=== PATIENT | male | born 1955 | race Caucasian/White ===

== ENCOUNTER 2018-07-18 04:48 | Emergency (ER) | payer MEDICAID ==
[2018-07-18 04:48] VITALS: BMI 28.3
[2018-07-18 05:06] VITALS: TEMP 98.5
--- NOTE | 2018-07-18 05:29 | ED PDOC ---
Arrival/HPI - General Chief Complaint: Abdominal Pain Time Seen by Provider: 07/18/18 05:19 Historian: Patient - History of Present Illness Narrative History of Present Illness (Text): 07/18/18 05:28 Jennifer Hammonds is a 62 year old male, whose past medical history includes BPH , hypertension, and hypothyroidism, who presents to the Emergency department complaining of abdominal pain. Patient states he has been experiencing diffuse recurrent vague abdominal cramps for the past 2 days with associated nausea. Patient was seen in the Emergency department yesterday for similar complaints. EKG, Chest X-ray, Labs, and CT Abdomen and Pelvis were performed and were within normal limits. Patient was discharged after symptom improved. Patient states pain return today and is feeling anxious due to his symptoms. Patient denies any fever, chills, chest pain, shortness of breath, vomiting, diarrhea, urinary symptoms, back pain, dizziness, or any other complaints. Symptom Onset: Gradual Symptom Course: Unchanged Activities at Onset: Light Context: Home Past Medical History - Provider Review Nursing Documentation Reviewed: Yes - Tetanus Immunization Tetanus Immunization: Unknown - Cardiac Hx Hypertension: Yes - Pulmonary Hx Respiratory Disorders: No - Gastrointestinal Hx Gastrointestinal Disorders: Yes Hx Gastritis: Yes Hx Gastroesophageal Reflux: Yes - Genitourinary/Gynecological Hx Prostate Problems: Yes - Psychiatric Hx Psychophysiologic Disorder: Yes Hx Anxiety: Yes Hx Substance Use: No - Surgical History Hx Cardiac Catheterization: Yes (about 5 yrs ago) - Anesthesia Hx Anesthesia: Yes Hx Anesthesia Reactions: No - Suicidal Assessment Feels Threatened In Home Enviroment: No Family/Social History - Physician Review Nursing Documentation Reviewed: Yes Family/Social History: Unknown Family HX Smoking Status: Former Smoker Hx Alcohol Use: No Hx Substance Use: No Hx Substance Use Treatment: No Allergies/Home Meds Allergies/Adverse Reactions: Allergies Penicillins Allergy (Verified 07/17/18 10:28) SWELLING Home Medications: Home Meds Medication Instructions Recorded Confirmed Tamsulosin [Flomax] 0.4 mg PO DAILY 09/25/14 07/18/18 Levothyroxine Sodium 75 mcg PO DAILY 06/08/17 07/18/18 amLODIPine [Norvasc] 10 mg PO DAILY 06/08/17 07/18/18 Review of Systems - Physician Review All systems were reviewed & negative as marked: Yes - Review of Systems Constitutional: Normal. absent: Fevers Eyes: Normal ENT: Normal Respiratory: Normal. absent: SOB, Cough Cardiovascular: Normal. absent: Chest Pain Gastrointestinal: Abdominal Pain Genitourinary Male: Normal. absent: Dysuria, Frequency, Hematuria, Urinary Output Changes Musculoskeletal: Normal. absent: Back Pain, Neck Pain Skin: Normal. absent: Rash Neurological: Normal. absent: Headache, Dizziness Endocrine: Normal Hemo/Lymphatic: Normal Psychiatric: Normal Physical Exam Vital Signs Reviewed: Yes Vital Signs Temp Pulse Resp BP Pulse Ox 07/18/18 05:01 98.5 F 97 H 19 172/110 H 97 Temperature: Afebrile Blood Pressure: Normal Pulse: Regular Respiratory Rate: Normal Appearance: Positive for: Well-Appearing, Non-Toxic, Comfortable Pain Distress: None Mental Status: Positive for: Alert and Oriented X 3 - Systems Exam Head: Present: Atraumatic, Normocephalic Pupils: Present: PERRL Extroacular Muscles: Present: EOMI Conjunctiva: Present: Normal Mouth: Present: Moist Mucous Membranes Neck: Present: Normal Range of Motion Respiratory/Chest: Present: Clear to Auscultation, Good Air Exchange. No: Respiratory Distress, Accessory Muscle Use Cardiovascular: Present: Regular Rate and Rhythm, Normal S1, S2. No: Murmurs Abdomen: No: Tenderness, Distention, Peritoneal Signs Back: Present: Normal Inspection. No: CVA Tenderness, Midline Tenderness, Paraspinal Tenderness Upper Extremity: Present: Normal Inspection. No: Cyanosis, Edema Lower Extremity: Present: Normal Inspection. No: Edema Neurological: Present: GCS=15, CN II-XII Intact, Speech Normal, Motor Func Grossly Intact, Normal Sensory Function, Normal Cerebellar Funct Skin: Present: Warm, Dry, Normal Color. No: Rashes Psychiatric: Present: Alert, Oriented x 3, Normal Insight, Normal Concentration Medical Decision Making ED Course and Treatment: 07/18/18 05:28 Impression: 62 year old male complaining of diffuse, recurrent abdominal pain for 2 days. Plan: -- Labs, lipase -- Urinalysis -- IV fluids -- Zofran -- Toradol -- Reassess and disposition Prior Visits: Notes and results from previous visits were reviewed. On 07/17/2018, pt was seen in the Emergency department for epigastric abdominal pain. EKG, Chest X-ray, Labs, and CT Abdomen and Pelvis performed. Labs were unremarkable. CT Abdomen and Pelvis showed: No evidence of cholecystitis pancreatitis or appendicitis, mildly enlarged nando hepatis and peripancreatic lymph nodes noted. Patient was discharged home. Progress Notes: - Lab Interpretations Lab Results: 07/18/18 05:45 07/18/18 05:45 Lab Results 07/18/18 05:45: WBC 5.8 D, RBC 5.78, Hgb 15.5, Hct 46.8, MCV 81.0, MCH 26.8, MCHC 33.1, RDW 13.9, Plt Count 352, MPV 9.4 07/18/18 05:45: Sodium 142, Potassium 3.9, Chloride 102, Carbon Dioxide 28, Anion Gap 16, BUN 10, Creatinine 1.0, Est GFR ( Amer) > 60, Est GFR (Non- Af Amer) > 60, Random Glucose 123 H, Calcium 10.0, Total Bilirubin 0.8, AST 28, ALT 14, Alkaline Phosphatase 95, Total Protein 8.5 H, Albumin 4.9 H, Globulin 3.6, Albumin/Globulin Ratio 1.4, Lipase 46 07/18/18 05:45: Urine Color Yellow, Urine Appearance Clear, Urine pH 6.0, Ur Specific [place] 1.010, Urine Protein Negative, Urine Glucose (UA) Negative, Urine Ketones Negative, Urine Blood Negative, Urine Nitrate Negative, Urine Bilirubin Negative, Urine Urobilinogen 0.2, Ur Leukocyte Esterase Negative - Medication Orders Current Medication Orders: Discontinued Medications Sodium Chloride (Sodium Chloride 0.9%) 1,000 mls @ 999 mls/hr IV .Q1H1M STA Stop: 07/18/18 06:30 Last Admin: 07/18/18 05:46 Dose: 999 mls/hr eMAR Start Stop Document 07/18/18 05:46 CNR (Rec: 07/18/18 05:46 CNR [id number]) Intravenous Solution Start Date 07/18/18 Start Time 05:46 End Date 07/18/18 End time 06:46 Total Infusion Time 60 Ketorolac Tromethamine (Toradol) 30 mg IVP ONCE ONE Stop: 07/18/18 05:31 Last Admin: 07/18/18 05:46 Dose: 30 mg MAR Pain Assessment Document 07/18/18 05:46 CNR (Rec: 07/18/18 05:47 CNR [id number]) Pain Reassessment Is this a pain reassessment? No IVP Administration Document 07/18/18 05:46 CNR (Rec: 07/18/18 05:47 CNR [id number]) Charges for Administration # of IVP Administrations 1 Ondansetron HCl (Zofran Inj) 4 mg IVP ONCE ONE Stop: 07/18/18 05:31 Last Admin: 07/18/18 05:46 Dose: 4 mg IVP Administration Document 07/18/18 05:46 CNR (Rec: 07/18/18 05:46 CNR [id number]) Charges for Administration # of IVP Administrations 1 - Scribe Statement The provider has reviewed the documentation as recorded by the Mary Lou Sal Provider Scribe Attestation: All medical record entries made by the Scribe were at my direction and personally dictated by me. I have reviewed the chart and agree that the record accurately reflects my personal performance of the history, physical exam, medical decision making, and the department course for this patient. I have also personally directed, reviewed, and agree with the discharge instructions and disposition. Disposition/Present on Arrival - Present on Arrival Any Indicators Present on Arrival: No History of DVT/PE: No History of Uncontrolled Diabetes: No Urinary Catheter: No History of Decub. Ulcer: No History Surgical Site Infection Following: None - Disposition Have Diagnosis and Disposition been Completed?: Yes Diagnosis: Gastritis, Dyspepsia Disposition: HOME/ ROUTINE Disposition Time: 06:59 Patient Plan: Discharge Condition: GOOD Discharge Instructions (ExitCare): Dyspepsia (DC), Gastritis (DC) Additional Instructions: Take meds as prescribed/maintain bland diet next few days/avoid alcohol or caffeinated beverages/follow up with your doctor this week Prescriptions: Phenobarb/Hyoscy/Atropine/Scop [ Tablet] 16.2 mg PO Q6 PRN #12 tablet PRN Reason: Dyspepsia Forms: [employer] (Mongolian)
[2018-07-18] MEDS ORDERED: Sodium Chloride 0.9% 1,000 ML IV STA (05:30)
[2018-07-18 06:02] LABS: HEMOGLOBIN 15.5 g/dL (14.0-18.0); MEAN CORPUSCULAR HEMOGLOBIN 26.8 pg (25.0-35.0); MEAN CORPUSCULAR HGB CONC 33.1 g/dl (31.0-37.0); MEAN PLATELET VOLUME 9.4 fl (7.0-11.0); RBC 5.78 10^6/uL (3.5-6.1); RED CELL DISTRIBUTION WIDTH 13.9 % (11.5-14.5); WHITE BLOOD COUNT 5.8 10^3/ul (4.5-11.0)
[2018-07-18 06:08] LABS: URINE BILIRUBIN NEGATIVE (NEGATIVE); URINE BLOOD NEGATIVE (NEGATIVE); URINE GLUCOSE (UA) NEGATIVE (NEGATIVE); URINE LEUKOCYTE ESTERASE NEGATIVE Leu/uL (NEGATIVE); URINE PROTEIN NEGATIVE mg/dL (<30 mg/dL); URINE UROBILINOGEN 0.2 E.U./dL (<1 E.U./dL)
[2018-07-18 06:12] LABS: URINE APPEARANCE CLEAR (CLEAR); URINE COLOR YELLOW (YELLOW)
[2018-07-18 06:13] LABS: ALB/GLOB RATIO 1.4 (1.1-1.8); ALBUMIN 4.9 g/dL (3.0-4.8); ALT/SGPT 14 U/L (7-56); AST/SGOT 28 U/L (17-59); BLOOD UREA NITROGEN 10 mg/dL (7-21); GFR NON-AFRICAN AMERICAN > 60; LIPASE 46 U/L (23-300)
[2018-07-18 07:12] VITALS: BP 156/82; PULSE 79; RESP 20; O2SAT 99
== END 2018-07-18 07:11 | disposition home or self-care (01) ==
LOC: ED 04:48
DX: K29.70 Gastritis, unspecified, without bleeding (principal); E03.9 Hypothyroidism, unspecified; I10 Essential (primary) hypertension; N40.0 Benign prostatic hyperplasia without lower urinary tract symptoms; Z87.891 Personal history of nicotine dependence
CPT/HCPCS: 80053; 81003; 83690; 85027; 96361; 96374; 96375; 99283; J1885; J2405; J7030

== ENCOUNTER 2018-08-03 09:58 | Emergency (ER) | payer MEDICAID ==
[2018-08-03 09:58] VITALS: BMI 28.3
--- NOTE | 2018-08-03 10:19 | ED PDOC ---
Arrival/HPI - General Historian: Patient - History of Present Illness Narrative History of Present Illness (Text): 08/03/18 10:12 62yo male with pmhx of BPH, hypertension, hypothyroid and anxiety who present with complaint of nausea and dizziness. States he usually takes his anti hypertensive whenever he feels his BP is high. States he felt it was high today and when he checked it, it was high so he took his BP medication. States minutes after taking it, be became lightheaded while standing with associated nausea. Reports history of this dizziness, but it was worse today. states he was referred to a Neurologist, but because he felt fine after he was seen here on 07/18/18, he have not seen any Doctor. He denies vomiting, headache, visual changes, abdominal pain, fever, chills, chest pain, slurred speech, focal weakness. <Jabier Navarro A - Last Filed: 08/03/18 12:55> <Arnaud Hobson - Last Filed: 08/04/18 07:24> - General Time Seen by Provider: 08/03/18 09:59 Past Medical History - Provider Review Nursing Documentation Reviewed: Yes - Tetanus Immunization Tetanus Immunization: Unknown - Cardiac Hx Hypertension: Yes - Pulmonary Hx Respiratory Disorders: No - Gastrointestinal Hx Gastrointestinal Disorders: Yes Hx Gastritis: Yes Hx Gastroesophageal Reflux: Yes - Genitourinary/Gynecological Hx Prostate Problems: Yes - Psychiatric Hx Psychophysiologic Disorder: Yes Hx Anxiety: Yes Hx Substance Use: No - Surgical History Hx Cardiac Catheterization: Yes (about 5 yrs ago) - Anesthesia Hx Anesthesia: Yes Hx Anesthesia Reactions: No - Suicidal Assessment Feels Threatened In Home Enviroment: No <Jabier Navarro A - Last Filed: 08/03/18 12:55> Family/Social History - Physician Review Nursing Documentation Reviewed: Yes Family/Social History: Unknown Family HX Smoking Status: Former Smoker Hx Alcohol Use: No Hx Substance Use: No Hx Substance Use Treatment: No <Jabier Navarro A - Last Filed: 08/03/18 12:55> Allergies/Home Meds <Jabier Navarro A - Last Filed: 08/03/18 12:55> <Arnaud Hobson - Last Filed: 08/04/18 07:24> Allergies/Adverse Reactions: Allergies Penicillins Allergy (Verified 08/03/18 10:16) SWELLING Home Medications: Home Meds Medication Instructions Recorded Confirmed Tamsulosin [Flomax] 0.4 mg PO DAILY 09/25/14 08/03/18 Levothyroxine Sodium 75 mcg PO DAILY 06/08/17 08/03/18 amLODIPine [Norvasc] 10 mg PO DAILY 06/08/17 08/03/18 Review of Systems - Physician Review All systems were reviewed & negative as marked: Yes - Review of Systems Constitutional: Normal Eyes: Normal ENT: Normal Respiratory: Normal Cardiovascular: Normal Gastrointestinal: Nausea. absent: Abdominal Pain, Constipation, Diarrhea, Vomiting, Hematemesis Genitourinary Male: Normal Musculoskeletal: Normal Skin: Normal Neurological: Dizziness. absent: Headache, Focal Weakness Endocrine: Normal Hemo/Lymphatic: Normal Psychiatric: Normal <Diru,Happiness A - Last Filed: 08/03/18 12:55> Physical Exam Vital Signs Reviewed: Yes Temperature: Afebrile Blood Pressure: Normal Pulse: Regular Respiratory Rate: Normal Appearance: Positive for: Well-Appearing, Non-Toxic, Comfortable Pain Distress: None Mental Status: Positive for: Alert and Oriented X 3 - Systems Exam Head: Present: Atraumatic, Normocephalic Pupils: Present: PERRL Extroacular Muscles: Present: EOMI Conjunctiva: Present: Normal Mouth: Present: Moist Mucous Membranes Neck: Present: Normal Range of Motion Respiratory/Chest: Present: Clear to Auscultation, Good Air Exchange. No: Respiratory Distress, Accessory Muscle Use Cardiovascular: Present: Regular Rate and Rhythm, Normal S1, S2. No: Murmurs Abdomen: No: Tenderness, Distention, Peritoneal Signs, Rebound, Guarding, [place] Tender Back: Present: Normal Inspection Upper Extremity: Present: Normal Inspection. No: Cyanosis, Edema Lower Extremity: Present: Normal Inspection. No: Edema Neurological: Present: GCS=15, CN II-XII Intact, Speech Normal, Motor Func Grossly Intact, Normal Sensory Function, Normal Cerebellar Funct, Norm Deep Tendon Reflexes, Gait Normal, Memory Normal, Normal 2Pt Descrimination, Other (No focal neurological deficit) Skin: Present: Warm, Dry, Normal Color. No: Rashes Psychiatric: Present: Alert, Oriented x 3, Normal Insight, Normal Concentration <Diru,Happiness A - Last Filed: 08/03/18 12:55> Vital Signs Temp Pulse Resp BP Pulse Ox 08/03/18 12:59 76 18 135/75 100 08/03/18 11:46 98.8 F 86 18 125/61 100 08/03/18 10:18 99.2 F 93 H 16 147/92 H 100 <Arnaud Hobson - Last Filed: 08/04/18 07:24> Medical Decision Making ED Course and Treatment: 08/03/18 10:47 62yo male in ED for nausea/dizziness since this morning. PT was neurologically intact in ED. Labs EKG 1L NS CAR Orthostatic htn Will reassess EKG NSR @83bpm. NO ST changes. Normal interval. Normal axis. 08/03/18 12:56 On re evaluation pt notes that his symptoms resolved. complained of mild headache and was treated with Tylenol. All labs was unremarkable He was not orthostatic He was hydrated. Neurologically intact and have steady gait in ED. He was AAO x3. He is stable for discharge all result and plan was DW the pt. He was strongly advised to f/u with a Neurologist/PMD TRT ED for new symptoms <Jabier Navarro A - Last Filed: 08/03/18 12:55> - Lab Interpretations Lab Results: 08/03/18 11:15 08/03/18 11:15 Lab Results 08/03/18 11:15: Sodium 140, Potassium 4.1, Chloride 102, Carbon Dioxide 30, Anion Gap 13, BUN 10, Creatinine 1.1, Est GFR ( Amer) > 60, Est GFR (Non- Af Amer) > 60, Random Glucose 104, Calcium 9.7, Magnesium 2.1, Total Bilirubin 0.5, AST 31, ALT 21, Alkaline Phosphatase 86, Total Protein 8.1, Albumin 4.8, Gl obulin 3.4, Albumin/Globulin Ratio 1.4, Lipase 45 08/03/18 11:15: PT 12.8 H, INR 1.11, APTT 33.7 08/03/18 11:15: WBC 4.4 L D, RBC 5.67, Hgb 14.8, Hct 46.0, MCV 81.1, MCH 26.1, MCHC 32.2, RDW 14.0, Plt Count 344, MPV 9.3, Gran % 66.7, Lymph % (Auto) 24.4, [place] % (Auto) 5.7, Eos % (Auto) 3.0, Baso % (Auto) 0.2, Gran # 2.92, Lymph # (Auto) 1.1 L, [place] # (Auto) 0.3, Eos # (Auto) 0.1, Baso # (Auto) 0.01 - Medication Orders Current Medication Orders: Discontinued Medications Acetaminophen (Tylenol 325mg Tab) 650 mg PO STAT STA Stop: 08/03/18 12:36 Last Admin: 08/03/18 12:47 Dose: 650 mg MAR Pain/Vitals Document 08/03/18 12:47 JUJU (Rec: 08/03/18 12:49 [id number]) Pain Reassessment Is This A Pain ReAssessment? Yes Presence of Pain Presence of Pain Yes Pain Scale Used Protocol: PSCALES Pain Scale Used Numeric Location Pain Location Body Hospice Office Coordinator Intensity 4 Scale Used Numeric Sodium Chloride (Sodium Chloride 0.9%) 1,000 mls @ 250 mls/hr IV .Q4H ONE Stop: 08/03/18 14:45 Last Admin: 08/03/18 11:06 Dose: 250 mls/hr eMAR Start Stop Document 08/03/18 11:06 JUJU (Rec: 08/03/18 11:06 [id number]) Intravenous Solution Start Date 08/03/18 Start Time 11:06 End Date 08/03/18 End time 12:49 Total Infusion Time 103 <Arnaud Hobson - Last Filed: 08/04/18 07:24> - PA / PAPER GRADER / Resident Statement / has reviewed & agrees with the documentation as recorded. <Arnaud Hobson - Last Filed: 08/04/18 07:24> Disposition/Present on Arrival - Present on Arrival Any Indicators Present on Arrival: No History of DVT/PE: No History of Uncontrolled Diabetes: No Urinary Catheter: No History Surgical Site Infection Following: None - Disposition Have Diagnosis and Disposition been Completed?: Yes Disposition Time: 13:05 Patient Plan: Discharge <Jabier Navarro - Last Filed: 08/03/18 12:55> <Arnaud Hobson - Last Filed: 08/04/18 07:24> - Disposition Diagnosis: Dizziness Disposition: HOME/ ROUTINE Condition: STABLE Discharge Instructions (ExitCare): Dizziness, Nonvertigo, (DC) Additional Instructions: Follow up with your Doctor/Neurologist Return to ED for any new or worsening symptoms Referrals: Mandy Glaeson DO [Primary Care Provider] - Follow up with primary King Chavarria MD [Staff Provider] - Follow up with primary Forms: [employer] (Norwegian)
[2018-08-03 10:22] VITALS: O2SAT 100
[2018-08-03] MEDS ORDERED: Sodium Chloride 0.9% 1,000 ML IV ONE (10:46)
[2018-08-03 11:46] VITALS: RESP 18; TEMP 98.8
[2018-08-03 11:59] LABS: BASO # 0.01 K/mm3 (0.0-2.0); BASO % 0.2 % (0.0-3.0); EOS # 0.1 (0.0-0.7); GRAN # 2.92 (1.4-6.5); GRAN % 66.7 % (50.0-68.0); HEMOGLOBIN 14.8 g/dL (14.0-18.0); LYMPH # 1.1 (1.2-3.4); LYMPH % 24.4 % (22.0-35.0); MEAN CELL VOLUME 81.1 fl (80.0-105.0); MEAN CORPUSCULAR HEMOGLOBIN 26.1 pg (25.0-35.0); MEAN CORPUSCULAR HGB CONC 32.2 g/dl (31.0-37.0); MEAN PLATELET VOLUME 9.3 fl (7.0-11.0); MONO # 0.3 (0.1-0.6); MONO % 5.7 % (1.0-6.0); RBC 5.67 10^6/uL (3.5-6.1); WHITE BLOOD COUNT 4.4 10^3/ul (4.5-11.0)
[2018-08-03 12:02] LABS: INR 1.11; PARTIAL THROMBOPLASTIN TIME 33.7 Seconds (25.1-36.5); PROTHROMBIN TIME 12.8 SECONDS (9.4-12.5)
[2018-08-03 12:15] LABS: ALB/GLOB RATIO 1.4 (1.1-1.8); ALBUMIN 4.8 g/dL (3.0-4.8); ALT/SGPT 21 U/L (7-56); AST/SGOT 31 U/L (17-59); BLOOD UREA NITROGEN 10 mg/dL (7-21); CALCIUM 9.7 mg/dL (8.4-10.5); GFR NON-AFRICAN AMERICAN > 60; LIPASE 45 U/L (23-300)
[2018-08-03 13:00] VITALS: BP 135/75; PULSE 76
--- NOTE | 2018-08-03 15:17 | CARD ---
APPROVED REPORT Date of service: 08/03/2018 EKG Measurement Heart [id number] <Conclusion> Normal sinus rhythm Normal ECG
== END 2018-08-03 13:29 | disposition home or self-care (01) ==
LOC: ED 09:58
DX: R42 Dizziness and giddiness (principal); I10 Essential (primary) hypertension; K21.9 Gastro-esophageal reflux disease without esophagitis; Z87.891 Personal history of nicotine dependence
CPT/HCPCS: 80053; 83690; 83735; 85025; 85610; 85730; 93005; 96360; 96361; 99284; J7030

== ENCOUNTER 2018-08-12 04:52 | Observation (INO) | payer MEDICAID ==
[2018-08-12 05:02] VITALS: BMI 24.1
--- NOTE | 2018-08-12 05:34 | ED PDOC ---
Arrival/HPI - General Chief Complaint: Shortness Of Breath Time Seen by Provider: 08/12/18 05:05 Historian: Patient - History of Present Illness Narrative History of Present Illness (Text): 08/12/18 05:34 62 year old male, whose past medical history includes BPH, hypertension, hypothyroid (medication dosage change from 75mg to 100mg) and anxiety, presents to the emergency department complaining of palpitation, shortness of breath, and left-sided chest tightness that woke him up from his sleep 2 hours ago. Patient describes the chest pain as a tightness sensation that is non-radiating. 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 Patient's last bowel movement was 2 days ago. Patient reports nausea for the past month and slight headache, but denies any fever, chills, abdominal pain, hematochezia, vomiting, diarrhea, urinary symptoms, back pain, neck pain, dizziness, or any other complaints. PMD; Dr. Mandy Gleason Time/Duration: Other (2 hours) Symptom Onset: Sudden Symptom Course: Unchanged Activities at Onset: Sleeping Context: Home Past Medical History - Provider Review Nursing Documentation Reviewed: Yes - Tetanus Immunization Tetanus Immunization: Unknown - Cardiac Hx Hypertension: Yes - Pulmonary Hx Respiratory Disorders: No - Endocrine/Metabolic Hx Endocrine Disorders: Yes Hx Hypothyroidism: Yes - Gastrointestinal Hx Gastrointestinal Disorders: Yes Hx Gastritis: Yes Hx Gastroesophageal Reflux: Yes - Genitourinary/Gynecological Hx Prostate Problems: Yes - Psychiatric Hx Psychophysiologic Disorder: Yes Hx Anxiety: Yes Hx Substance Use: No - Surgical History Hx Cataract Extraction: Yes Hx Cardiac Catheterization: Yes (about 5 yrs ago) - Anesthesia Hx Anesthesia: Yes Hx Anesthesia Reactions: No - Suicidal Assessment Feels Threatened In Home Enviroment: No Family/Social History - Physician Review Nursing Documentation Reviewed: Yes Family/Social History: No Known Family HX Smoking Status: Former Smoker Hx Alcohol Use: No Hx Substance Use: No Hx Substance Use Treatment: No Allergies/Home Meds Allergies/Adverse Reactions: Allergies Penicillins Allergy (Verified 08/12/18 05:10) SWELLING Home Medications: Home Meds Medication Instructions Recorded Confirmed RX: Tamsulosin [Flomax] 0.4 mg PO DAILY 09/25/14 08/12/18 RX: Levothyroxine Sodium 100 mcg PO DAILY 06/08/17 08/12/18 Review of Systems - Physician Review All systems were reviewed & negative as marked: Yes - Review of Systems Constitutional: absent: Fevers, Other (Chills) Respiratory: SOB Cardiovascular: Chest Pain, Palpitations Gastrointestinal: Nausea. absent: Abdominal Pain, Diarrhea, Vomiting, Hematochezia Genitourinary Male: absent: Dysuria, Frequency, Hematuria Musculoskeletal: absent: Back Pain, Neck Pain Neurological: Headache. absent: Dizziness Physical Exam Vital Signs Reviewed: Yes Vital Signs Temp Pulse Resp BP Pulse Ox 08/12/18 05:06 98 08/12/18 05:02 98.2 F 80 18 129/86 99 Temperature: Afebrile Blood Pressure: Normal Pulse: Regular Respiratory Rate: Normal Appearance: Positive for: Well-Appearing, Non-Toxic, Comfortable Pain Distress: None Mental Status: Positive for: Alert and Oriented X 3 - Systems Exam Head: Present: Atraumatic, Normocephalic Pupils: Present: PERRL Extroacular Muscles: Present: EOMI Conjunctiva: Present: Normal Mouth: Present: Moist Mucous Membranes Neck: Present: Normal Range of Motion Respiratory/Chest: Present: Clear to Auscultation, Good Air Exchange. No: Respiratory Distress, Accessory Muscle Use Cardiovascular: Present: Regular Rate and Rhythm, Normal S1, S2. No: Murmurs Abdomen: No: Tenderness, Distention, Peritoneal Signs Back: Present: Normal Inspection Upper Extremity: Present: Normal Inspection. No: Cyanosis, Edema Lower Extremity: Present: Normal Inspection. No: Edema Neurological: Present: GCS=15, CN II-XII Intact, Speech Normal Skin: Present: Warm, Dry, Normal Color. No: Rashes Psychiatric: Present: Alert, Oriented x 3, Normal Insight, Normal Concentration Medical Decision Making ED Course and Treatment: 08/12/18 05:34 Impression: 62 year old male presents complaining of palpitation, shortness of breath, and left-sided chest tightness that woke him up from his sleep 2 hours ago. Given CP, 2 hours prior will likely need serial troponin. Heart score moderate. Low pretest wells: PERCed out. Plan: -- Chest X-ray -- Labs -- EKG -- Reassess and disposition Prior Visits: Notes and results from previous visits were reviewed. Patient was last seen in the emergency department on 08/03/18 presents complaining of nausea and dizziness. Patient was discharged. Progress Notes: EKG shows NSR at 81 BPM with no STEMI.. Flat t-wave in lead III. Interpreted by me. 08/12/18 06:43 Appreciate consult w/ Dr. Oleary: we are to admit to hospitalist 08/12/18 06:57 appreciate consult w/ Dr. Henry: aware of pt: to be admitted to her pending trop and XR. 08/12/18 0700 signed out to oncoming pending XR and trop. - Lab Interpretations I have reviewed the lab results: Yes - EKG Interpretation Interpreted by ED Physician: Yes Type: 12 lead EKG - Scribe Statement The provider has reviewed the documentation as recorded by the Johannibsummer Barney Provider Scribe Attestation: All medical record entries made by the Scribe were at my direction and personally dictated by me. I have reviewed the chart and agree that the record accurately reflects my personal performance of the history, physical exam, medical decision making, and the department course for this patient. I have also personally directed, reviewed, and agree with the discharge instructions and disposition. Disposition/Present on Arrival - Present on Arrival Any Indicators Present on Arrival: No History of DVT/PE: No History of Uncontrolled Diabetes: No Urinary Catheter: No History of Decub. Ulcer: No History Surgical Site Infection Following: None - Disposition Have Diagnosis and Disposition been Completed?: Yes Diagnosis: Chest pain Disposition: HOSPITALIZED Disposition Time: 07:00 Condition: STABLE
[2018-08-12 06:09] LABS: BASO # 0.03 K/mm3 (0.0-2.0); BASO % 0.6 % (0.0-3.0); EOS # 0.2 (0.0-0.7); EOS % 2.9 % (1.5-5.0); GRAN # 3.12 (1.4-6.5); GRAN % 57.4 % (50.0-68.0); HEMOGLOBIN 14.5 g/dL (14.0-18.0); LYMPH # 1.7 (1.2-3.4); LYMPH % 31.4 % (22.0-35.0); MEAN CORPUSCULAR HEMOGLOBIN 26.2 pg (25.0-35.0); MEAN CORPUSCULAR HGB CONC 32.4 g/dl (31.0-37.0); MEAN PLATELET VOLUME 9.4 fl (7.0-11.0); MONO # 0.4 (0.1-0.6); MONO % 7.7 % (1.0-6.0); RBC 5.53 10^6/uL (3.5-6.1); WHITE BLOOD COUNT 5.4 10^3/ul (4.5-11.0)
--- NOTE | 2018-08-12 07:11 | ED PDOC ---
Physical Exam Vital Signs Reviewed: Yes Vital Signs Temp Pulse Resp BP Pulse Ox 08/12/18 07:02 75 18 98 08/12/18 05:06 98 08/12/18 05:02 98.2 F 80 18 129/86 99 Temperature: Afebrile Blood Pressure: Normal Pulse: Regular Respiratory Rate: Normal Appearance: Positive for: Well-Appearing, Non-Toxic, Comfortable Pain Distress: None Mental Status: Positive for: Alert and Oriented X 3 Medical Decision Making ED Course and Treatment: 08/12/18 07:10: Case endorsed to me by Dr. Ayo Cedeño. Patient presents to the emergency department with a complaint of palpitations, shortness of breath, and left- sided chest tightness that woke him from his sleep. Pending X-Ray, troponin, reassessment, and disposition. 08/12/18 09:13 admitted accepted by hospitalist, patient to be admitted for chest pain rule out acs, no significant clinical suspicion for PE or ACS. patient to be admitted for observation. - Lab Interpretations Lab Results: 08/12/18 05:42 Lab Results 08/12/18 05:42: WBC 5.4 D, RBC 5.53, Hgb 14.5, Hct 44.8, MCV 81.0, MCH 26.2, MCHC 32.4, RDW 14.0, Plt Count 294, MPV 9.4, Gran % 57.4, Lymph % (Auto) 31.4, [place] % (Auto) 7.7 H, Eos % (Auto) 2.9, Baso % (Auto) 0.6, Gran # 3.12, Lymph # (Auto) 1.7, [place] # (Auto) 0.4, Eos # (Auto) 0.2, Baso # (Auto) 0.03 - RAD Interpretation Radiology Orders: 08/12/18 05:34 CHEST TWO VIEWS (PA/LAT) [RAD] Stat - Scribe Statement The provider has reviewed the documentation as recorded by the Scribe Becca Souza Provider Scribe Attestation: All medical record entries made by the Scribe were at my direction and personally dictated by me. I have reviewed the chart and agree that the record accurately reflects my personal performance of the history, physical exam, medical decision making, and the department course for this patient. I have also personally directed, reviewed, and agree with the discharge instructions and disposition Disposition/Present on Arrival - Present on Arrival Any Indicators Present on Arrival: No History of DVT/PE: No History of Uncontrolled Diabetes: No Urinary Catheter: No History of Decub. Ulcer: No History Surgical Site Infection Following: None - Disposition Have Diagnosis and Disposition been Completed?: Yes Diagnosis: Chest pain Disposition: HOSPITALIZED Disposition Time: 09:14 Patient Plan: Observation Condition: STABLE Discharge Instructions (ExitCare): Chest Pain (ED) Forms: Sr[employer]Pago (Latvian)
[2018-08-12 09:03] LABS: BLOOD UREA NITROGEN 13 mg/dL (7-21); GFR NON-AFRICAN AMERICAN > 60
[2018-08-12 09:04] LABS: ALB/GLOB RATIO 1.4 (1.1-1.8); ALBUMIN 4.1 g/dL (3.0-4.8); CALCIUM 9.1 mg/dL (8.4-10.5)
[2018-08-12 09:05] LABS: ALT/SGPT 19 U/L (7-56); AST/SGOT 29 U/L (17-59); B-TYPE NATRIURETIC PEPTIDE 53.6 pg/mL (0-450); TROPONIN I 0.01 ng/mL
--- NOTE | 2018-08-12 10:31 | CARD ---
APPROVED REPORT Date of service: 08/12/2018 EKG Measurement Heart [id number] 140P25 [id number] <Conclusion> Normal sinus rhythm Normal ECG
--- NOTE | 2018-08-12 10:38 | CP.PCM.HP ---
<KathleenChuck - Last Filed: 08/12/18 14:31> History of Present Illness - History of Present Illness History of Present Illness: Chuck Wang PGY2 IM H&P Note for Dr. Arora cc: not feeling well, chest pain, abdominal squeezing awakening him from sleep Mr. Hammonds is a 62yo Citizen Of [place] male with a PMH of hyperthyroidism (medically treated in 1990), HTN and BPH who presents to the ED with symptoms of abdominal squeezing, nausea, chest tightness, elevated BP and diaphoresis that woke him from sleep earlier tonight. The patient states that he has had similar episodes 4 times this past month and has been seen in ER each time (either here at [facility] [place] [facility] ACS has been ruled out everytime, and he's undergoing outpatient work-up for possible endocrinological cause of his symptoms. The last time he's had the episodes was in when he was worked up extensively in [facility] including upper endoscopy with biopsy that showed gastritis and Cote's esophagus and received LHC in [facility] which showed normal coronaries. At the time of interview, the patient denies any symptoms and states that he only experiences these symptoms when he's sleeping and not on exertion. He states that he's been under stress (family) and that his family was in [place] and that stressed him out because he's not used to being alone. The discomfort does not radiate to his arms. He denies leg swelling or any numbness/tingling. He did switch his diet in an attempt to prevent exacerbation of his symptoms in case they were GI-related, and currently does not eat after 5pm and states he's had 12 lbs loss in the past month however his symptoms persist. 12-pt ROS was reviewed and is otherwise unremarkable. PMD: 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 [employer] FHx: Dad: BPH; Mom: from liver failure complications; sister: u/l renal agenesis Present on Admission - Present on Admission Any Indicators Present on Admission: No Review of Systems - Review of Systems All systems: reviewed and no additional remarkable complaints except (as per HPI) Past Patient History - Tetanus Immunizations Tetanus Immunization: Unknown - Past Medical History & Family History Past Medical History?: Yes - Past Social History Smoking Status: Former Smoker Alcohol: None Drugs: Denies Home Situation {Lives}: With Family - CARDIAC Hx Hypertension: Yes - PULMONARY Hx Respiratory Disorders: No - NEUROLOGICAL Hx Neurological Disorder: No - HEENT Hx Cataracts: Yes - RENAL Hx Chronic Kidney Disease: No - ENDOCRINE/METABOLIC Hx Endocrine Disorders: Yes Hx Hyperthyroidism: Yes (s/p medical tx) Hx Hypothyroidism: Yes - HEMATOLOGICAL/ONCOLOGICAL Hx Blood Disorders: No - INTEGUMENTARY Hx Dermatological Problems: No - MUSCULOSKELETAL/RHEUMATOLOGICAL Hx Musculoskeletal Disorders: No - GASTROINTESTINAL Hx Gastrointestinal Disorders: Yes Hx Gastritis: Yes Hx Gastroesophageal Reflux: Yes - GENITOURINARY/GYNECOLOGICAL Hx Genitourinary Disorders: Yes Hx Prostate Problems: Yes - PSYCHIATRIC Hx Psychophysiologic Disorder: Yes Hx Anxiety: Yes Hx Substance Use: No - SURGICAL HISTORY Hx Cataract Extraction: Yes Hx Cardiac Catheterization: Yes (about 8 yrs ago) - ANESTHESIA Hx Anesthesia: Yes Hx Anesthesia Reactions: No Meds Allergies/Adverse Reactions: Allergies Allergy/AdvReac Type Severity Reaction Status Date / Time Penicillins Allergy SWELLING Verified 08/12/18 05:10 Physical Exam - Constitutional Appears: Well, Non-toxic, No Acute Distress - Head Exam Head Exam: NORMAL INSPECTION - Eye Exam Eye Exam: EOMI, Normal appearance, PERRL, Scleral icterus Pupil Exam: NORMAL ACCOMODATION - ENT Exam ENT Exam: Mucous Membranes Moist - Neck Exam Neck exam: Positive for: Normal Inspection. Negative for: Meningismus - Respiratory Exam Respiratory Exam: Clear to Auscultation Bilateral, NORMAL BREATHING PATTERN. absent: Rales, Rhonchi, Wheezes, Respiratory Distress - Cardiovascular Exam Cardiovascular Exam: RRR, +S1, +S2. absent: Systolic Murmur - GI/Abdominal Exam GI & Abdominal Exam: Normal Bowel Sounds, Soft. absent: Distended, Tenderness - Extremities Exam Extremities exam: Positive for: full ROM, normal inspection. Negative for: pedal edema - Back Exam Back exam: NORMAL INSPECTION - Neurological Exam Neurological exam: Alert, CN II-XII Intact, Oriented x3, Reflexes Normal - Psychiatric Exam Psychiatric exam: Normal Affect - Skin Skin Exam: Normal Color, Warm Results - Vital Signs Recent Vital Signs: Last Vital Signs Temp 98.2 F 08/12/18 09:17 Pulse 83 08/12/18 10:06 Resp 18 08/12/18 10:06 BP 143/83 08/12/18 10:06 Pulse Ox 100 08/12/18 10:06 - Labs Result Diagrams: 08/12/18 05:42 08/12/18 06:14 Labs: Laboratory Results - last 24 hr 08/12/18 08/12/18 08/12/18 05:42 05:42 06:14 WBC 5.4 D RBC 5.53 Hgb 14.5 Hct 44.8 MCV 81.0 MCH 26.2 MCHC 32.4 RDW 14.0 Plt Count 294 MPV 9.4 Gran % 57.4 Lymph % (Auto) 31.4 [place] % (Auto) 7.7 H Eos % (Auto) 2.9 Baso % (Auto) 0.6 Gran # 3.12 Lymph # (Auto) 1.7 [place] # (Auto) 0.4 Eos # (Auto) 0.2 Baso # (Auto) 0.03 Sodium 140 Potassium 3.9 Chloride 109 H Carbon Dioxide 21 Anion Gap 14 BUN 13 Creatinine 1.0 Est GFR ( Amer) > 60 Est GFR (Non-Af Amer) > 60 Random Glucose 115 H Calcium 9.1 Magnesium 2.1 Total Bilirubin 0.2 AST 29 ALT 19 Alkaline Phosphatase 82 Troponin I 0.01 NT-Pro-B Natriuret Pep 53.6 Total Protein 7.0 Albumin 4.1 Globulin 2.9 Albumin/Globulin Ratio 1.4 TSH 3rd Generation 0.92 Assessment & Plan - Assessment and Plan (Free Text) Assessment: 62yo Citizen Of [place] male with a PMH of hyperthyroidism (medically treated in 1990), HTN and BPH admitted for atypical chest/abdominal pain, that is resolved at time of admission. Patient has a HEART score of 2 making him a low risk for cardiac events. However, given his atypical symptoms, he will be admitted to telemetry floor for monitoring to r/o ACS. Plan: 1. atypical chest pain, r/o ACS - trend troponin q6 hrs - initial EKG reviewed and was unremarkable - lipid panel and A1C ordered - Cardio consulted, recs appreciated - Prior Echo and stress test reviewed - patient will require outpatient stress test and continued work-up upon discharge - admit to telemetry for observation to r/o ACS - monitor VS q4 hrs 2. Hx gastritis - PTX 40 PO daily 3. Hx HTN - cont home Norvasc and Lopressor 4. Hx Hypothyroidism - cont Synthroid home dose - reviewed TSH lab from [facility] 5. Hx BPH - cont Flomax - monitor for signs of urinary obstruction 6. PPX/Diet - HHD - GI ppx w/ PTX - low risk for DVT as patient is ambulatory Case was reviewed and discussed with attending, Dr. Maite Wang PGY2 <Denton Arora - Last Filed: 08/12/18 19:04> Results - Vital Signs Recent Vital Signs: Last Vital Signs Temp 99.7 F H 08/12/18 16:21 Pulse 82 08/12/18 18:32 Resp 19 08/12/18 18:32 BP 137/92 H 08/12/18 16:21 Pulse Ox 99 08/12/18 16:21 - Labs Result Diagrams: 08/12/18 05:42 08/12/18 06:14 Labs: Laboratory Results - last 24 hr 08/12/18 08/12/18 08/12/18 05:42 05:42 06:14 WBC 5.4 D RBC 5.53 Hgb 14.5 Hct 44.8 MCV 81.0 MCH 26.2 MCHC 32.4 RDW 14.0 Plt Count 294 MPV 9.4 Gran % 57.4 Lymph % (Auto) 31.4 [place] % (Auto) 7.7 H Eos % (Auto) 2.9 Baso % (Auto) 0.6 Gran # 3.12 Lymph # (Auto) 1.7 [place] # (Auto) 0.4 Eos # (Auto) 0.2 Baso # (Auto) 0.03 Sodium 140 Potassium 3.9 Chloride 109 H Carbon Dioxide 21 Anion Gap 14 BUN 13 Creatinine 1.0 Est GFR ( Amer) > 60 Est GFR (Non-Af Amer) > 60 Random Glucose 115 H Calcium 9.1 Magnesium 2.1 Total Bilirubin 0.2 AST 29 ALT 19 Alkaline Phosphatase 82 Lactate Dehydrogenase Total Creatine Kinase Troponin I 0.01 NT-Pro-B Natriuret Pep 53.6 Total Protein 7.0 Albumin 4.1 Globulin 2.9 Albumin/Globulin Ratio 1.4 Triglycerides Cholesterol HDL Cholesterol TSH 3rd Generation 0.92 08/12/18 08/12/18 12:00 18:32 WBC RBC Hgb Hct MCV MCH MCHC RDW Plt Count MPV Gran % Lymph % (Auto) [place] % (Auto) Eos % (Auto) Baso % (Auto) Gran # Lymph # (Auto) [place] # (Auto) Eos # (Auto) Baso # (Auto) Sodium Potassium Chloride Carbon Dioxide Anion Gap BUN Creatinine Est GFR ( Amer) Est GFR (Non-Af Amer) Random Glucose Calcium Magnesium Total Bilirubin AST ALT Alkaline Phosphatase Lactate Dehydrogenase 258 L 295 L Total Creatine Kinase 30 L 33 L Troponin I 0.01 NT-Pro-B Natriuret Pep Total Protein Albumin Globulin Albumin/Globulin Ratio Triglycerides 194 H Cholesterol 174 HDL Cholesterol 44 TSH 3rd Generation Attending/Attestation - Attestation I have personally seen and examined this patient.: Yes I have fully participated in the care of the patient.: Yes I have reviewed all pertinent clinical information: Yes Notes (Text): 08/12/18 19:02 Medical record note made by the resident after discussion with my direction and input after the patient was personally seen and examined by me. I have reviewed the chart and agree that the record accurately reflects by personal performance of the history, physical exam, data review, and medical decision-making, in the course for the patient. I have also personally directed the plan of care. 62 yrs Citizen Of [place] male with a PMH of hyperthyroidism (medically treated in 1990), HTN and BPH who presents to the ED with symptoms of abdominal squeezing, nausea, chest tightness, elevated BP and diaphoresis that woke him from sleep earlier tonight.EKG is negative for ischemic changes.Patient is pain free.Blood pressure is improved. We will admit patient in telemetry.We will get serial troponin.We will also get lipid profile and cardiology consult. Management plan was discussed in detail with patient. Education was provided.
[2018-08-12] MEDS ORDERED: Metoprolol Succinate 25 mg XL Tab PO SCH ×2 (10:45→20:00)
[2018-08-12] MEDS ORDERED: Levothyroxine 100 MCG TAB PO SCH (10:45)
--- NOTE | 2018-08-12 11:05 | RAD ---
Date of service: 08/12/2018 HISTORY: cp COMPARISON: 12/31/2015 TECHNIQUE: Chest PA and lateral FINDINGS: LUNGS: No active pulmonary disease. PLEURA: No significant pleural effusion identified. No pneumothorax apparent. CARDIOVASCULAR: Normal. OSSEOUS STRUCTURES: No significant abnormalities. VISUALIZED UPPER ABDOMEN: Normal. OTHER FINDINGS: None. IMPRESSION: No active disease.
[2018-08-12 13:48] LABS: TROPONIN I 0.01 ng/mL
[2018-08-12] MEDS: Pantoprazole 40 mg EC Tab PO SCH (16:14)
[2018-08-12] MEDS ORDERED: Influenza Vaccine 60 mcg/0.5 mL SYR (4YR UP) IM ONE (18:56)
[2018-08-12] MEDS ORDERED: Pneumococcal 23-Valent Vaccine IM ONE (18:56)
[2018-08-12 19:00] LABS: HDL CHOLESTEROL 44 mg/dL (29-60)
[2018-08-12 19:11] LABS: LDL CHOLESTEROL 82 mg/dL (0-129); TROPONIN I < 0.01 ng/mL
[2018-08-13] MEDS: Pantoprazole 40 mg EC Tab PO SCH (05:25)
[2018-08-13] MEDS: Levothyroxine 100 MCG TAB PO SCH (05:25)
[2018-08-13 06:53] LABS: ALB/GLOB RATIO 1.3 (1.1-1.8); ALT/SGPT 18 U/L (7-56); AST/SGOT 24 U/L (17-59); BLOOD UREA NITROGEN 14 mg/dL (7-21); CALCIUM 9.1 mg/dL (8.4-10.5); GFR NON-AFRICAN AMERICAN > 60
[2018-08-13 06:54] LABS: INR 1.14; PROTHROMBIN TIME 13.2 SECONDS (9.4-12.5)
[2018-08-13 07:22] LABS: BASO # 0.03 K/mm3 (0.0-2.0); BASO % 0.5 % (0.0-3.0); EOS # 0.2 (0.0-0.7); EOS % 3.4 % (1.5-5.0); GRAN # 3.16 (1.4-6.5); GRAN % 55.7 % (50.0-68.0); HEMOGLOBIN 13.7 g/dL (14.0-18.0); LYMPH # 1.9 (1.2-3.4); LYMPH % 32.6 % (22.0-35.0); MEAN CELL VOLUME 80.3 fl (80.0-105.0); MEAN CORPUSCULAR HGB CONC 32.4 g/dl (31.0-37.0); MEAN PLATELET VOLUME 9.3 fl (7.0-11.0); MONO # 0.4 (0.1-0.6); MONO % 7.8 % (1.0-6.0); RBC 5.27 10^6/uL (3.5-6.1); WHITE BLOOD COUNT 5.7 10^3/ul (4.5-11.0)
[2018-08-13 08:36] VITALS: RESP 20
--- NOTE | 2018-08-13 13:14 | CARD ---
APPROVED REPORT Date of service: 08/13/2018 EKG Measurement Heart [id number] 130P25 [id number] <Conclusion> Normal sinus rhythm Normal ECG
[2018-08-13] MEDS ORDERED: Iodixanol 320 MG/ML 100 ML BOTTLE IV ONE (16:33)
--- NOTE | 2018-08-13 16:49 | CP.PCM.PN ---
Subjective - Date & Time of Evaluation Date of Evaluation: 08/13/18 Time of Evaluation: 10:25 - Subjective Subjective: Rodney Mac- Internal Medicine Resident- Progress Note on Behalf of Hospitalist Team Subjective: Patient seen and examined at bedside. Patient states he experienced chest discomfort and palpitation which woke him up overnight. States symptoms resolved spontaneously. Denies fevers, chills, shortness of breath, diaphoresis, abdominal pain, nausea, vomiting, diarrhea, constipation, and urinary symptoms. 12 point ROS negative except as indicated in HPI Physical Examination: - Constitutional Appears: Well, Non-toxic, No Acute Distress - Head Exam Head Exam: NORMAL INSPECTION - Eye Exam Eye Exam: EOMI, Normal appearance - ENT Exam ENT Exam: Mucous Membranes Moist - Neck Exam Neck exam: Positive for: Normal Inspection. Negative for: Meningismus - Respiratory Exam Respiratory Exam: Clear to Auscultation Bilateral, NORMAL BREATHING PATTERN. absent: Rales, Rhonchi, Wheezes, Respiratory Distress - Cardiovascular Exam Cardiovascular Exam: Tachycardic +S1, +S2. absent: Systolic Murmur - GI/Abdominal Exam GI & Abdominal Exam: Normal Bowel Sounds, Soft. absent: Distended, Tenderness - Extremities Exam Extremities exam: Positive for: full ROM, normal inspection. Negative for: pedal edema - Back Exam Back exam: NORMAL INSPECTION - Neurological Exam Neurological exam: Alert, CN II-XII Intact, Oriented x3, Reflexes Normal - Psychiatric Exam Psychiatric exam: Normal Affect - Skin Skin Exam: Normal Color, Warm Assessment and Plan: Patient is 62 year old [place] male with a PMHx of hyperthyroidism (medically treated in 1990), HTN and BPH who was admitted for atypical chest/abdominal pain, that is resolved at time of admission. Patient has a HEART score of 2 making him a low risk for cardiac events. However, given his atypical symptoms, he will be admitted to telemetry floor for monitoring to r/o ACS. Atypical chest pain, r/o ACS - troponins 0.01 x 3 - initial EKG reviewed and was unremarkable - lipid panel reviewed- TAG elevated - A1C ordered and pending - Cardio consulted, appreciate recs - patient will require outpatient stress test and continued work-up upon discharge Sinus Tachycardia - EKG ordered- revealed NSR no defining ST Twave abnormalities - d-dimer ordered- elevated - CTA ordered and pending Hx gastritis - PTX 40 PO daily Hx HTN - cont home Norvasc and Lopressor Hx Hypothyroidism - cont Synthroid home dose - TSH within normal limits Hx BPH - cont Flomax - monitor for signs of urinary obstruction PPX/Diet - HHD - GI ppx w/ PTX - low risk for DVT as patient is ambulatory Patient seen, case reviewed with, and plan approved by attending physician, Dr. Arora. Objective - Vital Signs/Intake and Output Vital Signs (last 24 hours): Temp Pulse Resp BP Pulse Ox 98.1 F 67 20 114/79 98 08/13/18 08:35 08/13/18 08:35 08/13/18 08:35 08/13/18 08:35 08/13/18 08:35 Intake and Output: 08/13/18 08/13/18 06:59 18:59 Intake Total 420 Balance 420 - Medications Medications: Current Medications Amlodipine Besylate (Norvasc) 10 mg PO 0600 [facility] Last Admin: 08/13/18 05:25 Dose: 10 mg Levothyroxine Sodium (Synthroid) 100 mcg PO 0600 [facility] Last Admin: 08/13/18 05:25 Dose: 100 mcg Metoprolol Succinate (Toprol Xl) 25 mg PO 2000 [facility] Last Admin: 08/12/18 20:02 Dose: 25 mg Pantoprazole Sodium (Protonix Ec Tab) 40 mg PO 0600 [facility] Last Admin: 08/13/18 05:25 Dose: 40 mg Tamsulosin HCl (Flomax) 0.4 mg PO 1400 [facility] Last Admin: 08/13/18 14:48 Dose: 0.4 mg - Labs Labs: 08/13/18 05:00 08/13/18 05:00 PT 13.2 SECONDS (9.4-12.5) H 08/13/18 05:00 INR 1.14 08/13/18 05:00
[2018-08-13] MEDS ORDERED: Metoprolol Succinate 25 mg XL Tab PO SCH (16:56)
[2018-08-13] MEDS ORDERED: Enoxaparin 80 mg Syringe SC SCH (19:45)
[2018-08-14] MEDS: Levothyroxine 100 MCG TAB PO SCH (07:36)
[2018-08-14] MEDS: Pantoprazole 40 mg EC Tab PO SCH (07:36)
[2018-08-14 08:52] VITALS: TEMP 98.2; O2SAT 97
--- NOTE | 2018-08-14 09:36 | CT ---
Date of service: 08/13/2018 PROCEDURE: CT Chest with contrast (Pulmonary Angiogram) HISTORY: Rule out Pulmonary embolism COMPARISON: None available. TECHNIQUE: Axial computed tomography images were obtained of the chest in the pulmonary arterial phase of enhancement. Coronal and sagittal reformatted images were created and reviewed. Intravenous contrast dose: 74 cc Visipaque 320 Radiation dose: Total exam DLP = 356.19 mGy-cm. This CT exam was performed using one or more of the following dose reduction techniques: Automated exposure control, adjustment of the mA and/or kV according to patient size, and/or use of iterative reconstruction technique. FINDINGS: PULMONARY ARTERIES: Unremarkable. No pulmonary embolism. AORTA: No acute findings. No thoracic aortic aneurysm. LUNGS: Unremarkable. No nodule, mass or pulmonary consolidation. PLEURAL SPACES: Unremarkable. No effusion or pneumothorax. HEART: Unremarkable. No cardiomegaly. No significant pericardial effusion. LYMPH NODES: No lymphadenopathy. BONES, CHEST WALL: Unremarkable. No fracture or destructive lesion OTHER FINDINGS: Unremarkable. IMPRESSION: Unremarkable CT pulmonary angiogram. No pulmonary embolus. The preliminary findings for this examination were reported by [facility] at 4:30 p.m. on 08/13/2018. There is concurrence of this report with the preliminary findings.
[2018-08-14] MEDS ORDERED: Enoxaparin 40 mg Syringe SC SCH ×2 (10:00→20:00)
--- NOTE | 2018-08-14 10:08 | CARD ---
APPROVED REPORT Date of service: 08/14/2018 EKG Measurement Heart [id number] [id number] <Conclusion> Normal sinus rhythm Normal ECG
[2018-08-14] MEDS ORDERED: diltiaZEM 180 mg/24 Hours CD Cap PO SCH (13:00)
[2018-08-14 13:25] VITALS: BP 112/76; PULSE 80
--- NOTE | 2018-08-14 19:26 | CP.PCM.DIS ---
Provider - Provider Date of Admission: 08/12/18 09:17 Attending physician: Denton Arora MD Time Spent in preparation of Discharge (in minutes): 45 Diagnosis - Discharge Diagnosis (1) Angina at rest Status: Acute Priority: High (2) Tachycardia Status: Acute Priority: High (3) HTN (hypertension) Status: Chronic Priority: Medium (4) Hypothyroid Status: Chronic Priority: Medium (5) BPH (benign prostatic hyperplasia) Status: Chronic Priority: Medium Hospital Course - Lab Results Lab Results: Most Recent Lab Values WBC 5.7 10^3/ul (4.5-11.0) 08/13/18 05:00 RBC 5.27 10^6/uL (3.5-6.1) 08/13/18 05:00 Hgb 13.7 g/dL (14.0-18.0) L 08/13/18 05:00 Hct 42.3 % (42.0-52.0) 08/13/18 05:00 MCV 80.3 fl (80.0-105.0) 08/13/18 05:00 MCH 26.0 pg (25.0-35.0) 08/13/18 05:00 MCHC 32.4 g/dl (31.0-37.0) 08/13/18 05:00 RDW 14.0 % (11.5-14.5) 08/13/18 05:00 Plt Count 261 10^3/uL (120.0-450.0) 08/13/18 05:00 MPV 9.3 fl (7.0-11.0) 08/13/18 05:00 Gran % 55.7 % (50.0-68.0) 08/13/18 05:00 Lymph % (Auto) 32.6 % (22.0-35.0) 08/13/18 05:00 [place] % (Auto) 7.8 % (1.0-6.0) H 08/13/18 05:00 Eos % (Auto) 3.4 % (1.5-5.0) 08/13/18 05:00 Baso % (Auto) 0.5 % (0.0-3.0) 08/13/18 05:00 Gran # 3.16 (1.4-6.5) 08/13/18 05:00 Lymph # (Auto) 1.9 (1.2-3.4) 08/13/18 05:00 [place] # (Auto) 0.4 (0.1-0.6) 08/13/18 05:00 Eos # (Auto) 0.2 (0.0-0.7) 08/13/18 05:00 Baso # (Auto) 0.03 K/mm3 (0.0-2.0) 08/13/18 05:00 PT 13.2 SECONDS (9.4-12.5) H 08/13/18 05:00 INR 1.14 08/13/18 05:00 D-Dimer, Quantitative 606 ng/mlDDU (0-243) H 08/13/18 10:55 Sodium 140 mmol/L (132-148) 08/13/18 05:00 Potassium 4.1 mmol/L (3.6-5.0) 08/13/18 05:00 Chloride 106 mmol/L (98-107) 08/13/18 05:00 Carbon Dioxide 26 mmol/L (21-33) 08/13/18 05:00 Anion Gap 13 (10-20) 08/13/18 05:00 BUN 14 mg/dL (7-21) 08/13/18 05:00 Creatinine 1.1 mg/dl (0.8-1.5) 08/13/18 05:00 Est GFR ( Amer) > 60 08/13/18 05:00 Est GFR (Non-Af Amer) > 60 08/13/18 05:00 Random Glucose 102 mg/dL (70-110) 08/13/18 05:00 Hemoglobin A1c 5.6 % (4.2-6.5) 08/12/18 18:32 Calcium 9.1 mg/dL (8.4-10.5) 08/13/18 05:00 Phosphorus 3.6 mg/dL (2.5-4.5) 08/13/18 05:00 Magnesium 2.0 mg/dL (1.7-2.2) 08/13/18 05:00 Total Bilirubin 0.6 mg/dL (0.2-1.3) 08/13/18 05:00 AST 24 U/L (17-59) 08/13/18 05:00 ALT 18 U/L (7-56) 08/13/18 05:00 Alkaline Phosphatase 69 U/L (38-126) 08/13/18 05:00 Lactate Dehydrogenase 295 U/L (333-699) L 08/12/18 18:32 Total Creatine Kinase 33 U/L (35-230) L 08/12/18 18:32 Troponin I < 0.01 ng/mL 08/14/18 01:30 NT-Pro-B Natriuret Pep 53.6 pg/mL (0-450) 08/12/18 06:14 Total Protein 7.0 g/dL (5.8-8.3) 08/13/18 05:00 Albumin 4.0 g/dL (3.0-4.8) 08/13/18 05:00 Globulin 3.0 gm/dL 08/13/18 05:00 Albumin/Globulin Ratio 1.3 (1.1-1.8) 08/13/18 05:00 Triglycerides 194 mg/dL (35-160) H 08/12/18 18:32 Cholesterol 174 mg/dL (130-200) 08/12/18 18:32 LDL Cholesterol Direct 82 mg/dL (0-129) 08/12/18 18:32 HDL Cholesterol 44 mg/dL (29-60) 08/12/18 18:32 TSH 3rd Generation 0.72 mIU/mL (0.46-4.68) 08/14/18 13:17 - Hospital Course Hospital Course: Pt is a 62yo male with a PMH of hyperthyroidism (medically treated in 1990), HTN and BPH who presented to the ED with symptoms of abdominal squeezing, nausea, chest tightness, elevated BP and diaphoresis that woke him from sleep. The patient stated that he has had similar episodes 4 times this past month and has been seen in ER each time (either here at [facility] or [facility] ACS has been ruled out everytime, and he's undergoing outpatient work-up for possible endocrinological cause of his symptoms. The last time he's had the episodes was in when he was worked up extensively in [facility] including upper endoscopy with biopsy that showed gastritis and Cote's esophagus and received LHC in [facility] which showed normal coronaries. At the time of interview, the patient denies any symptoms and states that he only experiences these symptoms when he's sleeping and not on exertion. Pt was cleared by cardiology and advised to follow up as an out pt with his PMD and also his housefellow. - Date & Time of H&P Date of H&P: 08/14/18 Time of H&P: 19:26 Discharge Exam - Head Exam Head Exam: NORMAL INSPECTION - ENT Exam ENT Exam: Mucous Membranes Moist - Respiratory Exam Respiratory Exam: NORMAL BREATHING PATTERN - Cardiovascular Exam Cardiovascular Exam: REGULAR RHYTHM, RRR, +S1, +S2 - GI/Abdominal Exam GI & Abdominal Exam: Normal Bowel Sounds, Unremarkable Discharge Plan - Discharge Medications Prescriptions: diltiaZEM [Cardizem] 120 mg PO DAILY #7 tab - Follow Up Plan Condition: STABLE Disposition: HOME/ ROUTINE Instructions: Chest Pain (DC) Additional Instructions: Patient Instructions: 1. Please take medications as prescribed. Stop norvasc at home. Start Cardizem 180mg 1 tablet orally once per day. Continue taking Metoprolol Succinate 25mg 1 tablet orally once per day. Continue levothyroxine 100 mcg one tablet orally once per day. Continue flomax 0.4mg one tablet orally once per day. 2. Please follow up with your primary care physician and housefellow (Dr. Russ) within 3-5 days from discharge 3. Please return to the emergency department for new or worsening symptoms including but not limited to fever, chills, chest pain, shortness of breath, abdominal pain, nausea, vomiting, diarrhea, constipation, and urinary symptoms. Referrals: Teto Russ MD [Staff Provider] -
--- NOTE | 2018-08-14 22:04 | CON ---
DATE: 08/14/2018 HISTORY: The patient is a 62-year-old male who presents with palpitations on a daily basis every night. PAST MEDICAL HISTORY: The patient's past medical history is free of cardiac disease; however, he does have a history of hypertension treated with Norvasc and metoprolol. No diabetes mellitus noted. No previous myocardial infarction noted. In the hospital, on telemetry, he has documented SVT noted associated with symptoms. SOCIAL HISTORY: Former smoker, stopped 30 years ago. REVIEW OF SYSTEMS: A 14-point review of systems is reviewed in detail. Other than the palpitations, there is an element of anxiety noted. PHYSICAL EXAMINATION: VITAL SIGNS: Blood pressure is 102/56, the heart rates is in the 60s. NECK: Negative JVD. LUNGS: Without rales. HEART: S1, S2. EXTREMITIES: Without edema. LABORATORY DATA: EKG shows normal sinus rhythm with no acute changes. Troponins are all negative. Hemoglobin is 13.7. IMPRESSION: 1. Palpitations. 2. Supraventricular tachycardia (documented). 3. Hypertension. 4. Anxiety. PLAN: Given these findings, we will DC his Norvasc. We will add Cardizem. If the patient tolerates Cardizem, we will check his TSH today. He can be discharged today and follow with an appointed stress Cardiolite an echocardiogram as an outpatient. Teto Russ MD
== END 2018-08-14 17:22 | disposition home or self-care (01) ==
LOC: ED 04:52 → ERH 09:17 → 3RSO 10:28
PROVIDERS: ADMIT Internal Medicine; ATTEND Internal Medicine
DX: I20.9 Angina pectoris, unspecified (principal); I47.1 Supraventricular tachycardia; I10 Essential (primary) hypertension; K21.9 Gastro-esophageal reflux disease without esophagitis; N40.0 Benign prostatic hyperplasia without lower urinary tract symptoms; E03.9 Hypothyroidism, unspecified; Z87.891 Personal history of nicotine dependence
CPT/HCPCS: 36415; 71046; 71275; 80053; 80061; 82550; 83036; 83615; 83735; 83880; 84100; 84443; 84484; 85025; 85378; 85610; 93005; 99285; G0378; J1650; Q9967

== ENCOUNTER 2018-08-30 11:03 | Observation (INO) | payer MEDICAID ==
[2018-08-30] MEDS ORDERED: Sodium Chloride 0.9% 1,000 ML IV STA (11:26)
--- NOTE | 2018-08-30 11:26 | ED PDOC ---
Arrival/HPI - General Time Seen by Provider: 08/30/18 11:05 Historian: Patient, EMS - History of Present Illness Narrative History of Present Illness (Text): 08/30/18 11:26 62 y/o M w/ h/o HTN, hypothyroidism, SVT(on cardizem), who was brought by EMS to the ED complaining of 2 days of chest pain radiating to his left arm. EMS reports giving the patient 4 sprays of Nitroglycerin and 4 of Zofran prior to arrival which alleviated the pain(07/17-->01/14). The patient reports experiencing chest pain for the past 48 hours, and that the pain woke him up today. He notes associated shortness of breath with quickening heart rate, and headaches. Patient regularly measures his blood pressure and notes measurement this morning was 165/109 and heart rate at 80bpm. Per patient he is compliant with his Cardizem regimen, and notes feeling dizzy, tired, and nauseated and attributes his symptoms to being a part of the medication's adverse effect. Of note, the patient was previously admitted and was diagnosed with SVT and hypothyroidism 2 weeks ago. He underwent coronary catheterization which revealed patent arteries with no stents placed as a result. Patient denies fevers, chills, cough, dyspnea on exertion, abdominal pain, vomiting, diarrhea, back pain, neck pain, or any other complaint. PMD: Delivery Of Shopping News: Time/Duration: Other (48 hours) Symptom Onset: Gradual Symptom Course: Intermittent Quality: Pressure Severity Level: 9 Activities at Onset: Rest Context: Home Past Medical History - Provider Review Nursing Documentation Reviewed: Yes - Travel History Have you recently traveled outside [place] w/in the past 3 mons?: No - Tetanus Immunization Tetanus Immunization: Unknown - Cardiac Hx Hypertension: Yes - Pulmonary Hx Respiratory Disorders: No - Endocrine/Metabolic Hx Endocrine Disorders: Yes Hx Hypothyroidism: Yes - Gastrointestinal Hx Gastrointestinal Disorders: Yes Hx Gastritis: Yes Hx Gastroesophageal Reflux: Yes - Genitourinary/Gynecological Hx Prostate Problems: Yes - Psychiatric Hx Psychophysiologic Disorder: Yes Hx Anxiety: Yes Hx Substance Use: No - Surgical History Hx Cataract Extraction: Yes Hx Cardiac Catheterization: Yes (about 5 yrs ago) - Anesthesia Hx Anesthesia: Yes Hx Anesthesia Reactions: No - Suicidal Assessment Feels Threatened In Home Enviroment: No Family/Social History - Physician Review Nursing Documentation Reviewed: Yes Family/Social History: No Known Family HX Smoking Status: Former Smoker Hx Alcohol Use: No Hx Substance Use: No Hx Substance Use Treatment: No Allergies/Home Meds Allergies/Adverse Reactions: Allergies Penicillins Allergy (Verified 08/12/18 05:10) SWELLING Home Medications: Home Meds Medication Instructions Recorded Confirmed RX: Tamsulosin [Flomax] 0.4 mg PO DAILY 09/25/14 08/30/18 RX: Levothyroxine Sodium 100 mcg PO DAILY 06/08/17 08/30/18 Review of Systems - Physician Review All systems were reviewed & negative as marked: Yes - Review of Systems Constitutional: absent: Fatigue Eyes: absent: Vision Changes Respiratory: SOB. absent: Cough Cardiovascular: Chest Pain, Palpitations. absent: Edema, Calf Pain, Syncope Musculoskeletal: absent: Back Pain, Myalgias Neurological: Headache, Dizziness Physical Exam Vital Signs Reviewed: Yes Temperature: Afebrile Blood Pressure: Normal Pulse: Regular Respiratory Rate: Normal Appearance: Positive for: Well-Appearing, Non-Toxic, Comfortable Mental Status: Positive for: Alert and Oriented X 3 - Systems Exam Head: Present: Atraumatic, Normocephalic Pupils: Present: PERRL Extroacular Muscles: Present: EOMI Conjunctiva: Present: Normal Mouth: Present: Moist Mucous Membranes Neck: Present: Normal Range of Motion Respiratory/Chest: Present: Clear to Auscultation, Good Air Exchange, Tender to Palpation (midsternal chest pain reproducible with palpation). No: Respiratory Distress, Accessory Muscle Use, Tachypneic Cardiovascular: Present: Regular Rate and Rhythm, Normal S1, S2, Other (Pinpoint tenderness to palpation of the left hemithorax within the 5th intercostal space of the mid-axillary line). No: Murmurs, Tachycardic Abdomen: No: Tenderness, Distention, Peritoneal Signs Back: Present: Normal Inspection Upper Extremity: Present: Normal Inspection. No: Cyanosis, Edema Lower Extremity: Present: Normal Inspection. No: Edema Neurological: Present: GCS=15, CN II-XII Intact, Speech Normal Skin: Present: Warm, Dry, Normal Color. No: Rashes Psychiatric: Present: Alert, Oriented x 3, Normal Insight, Normal Concentration Medical Decision Making ED Course and Treatment: 08/30/18 11:26 Impression: 62 year old male who is complaining of 48 hour chest pain that today started radiating to his left shoulder and arm HEART Score: 2 points Differential Diagnosis included but are not limited to: ACS Pneumonia Pulmonary embolism Costochondritis Plan: -- Labs -- Cardiac enzymes --Cardiology consult -- Chest X-ray -- IV fluids -- Blood work -- Urinalysis -- Reassess and disposition Prior Visits: Notes and results from previous visits were reviewed. Progress Notes: 08/30/18 13:30 Patient reevaluated and reports marked improvement in chest pain. CXR negative for infiltrates. Pending troponin. Page placed to Dr. Russ(cardiology). 08/30/18 14:[address] Moe, who is aware of and accepts patient to her service. - Lab Interpretations I have reviewed the lab results: Yes - RAD Interpretation Narrative RAD Interpretations (Text): 08/30/18 13:35 Chest X-ray: Dictated By: Dr.Peter Mendez Impression: No active disease. Weight Reduction Specialist: Radiologist - EKG Interpretation EKG Interpretation (Text): 08/30/18 11:16 EKG shows NSR at 63 BPM with no T wave inversions, no ST elevations or depression, and no QT prolongation. Interpreted by me. Interpreted by ED Physician: Yes Type: 12 lead EKG - Scribe Statement The provider has reviewed the documentation as recorded by the Scribe Chuck Patterson Provider Scribe Attestation: All medical record entries made by the Scribe were at my direction and personally dictated by me. I have reviewed the chart and agree that the record accurately reflects my personal performance of the history, physical exam, medical decision making, and the department course for this patient. I have also personally directed, reviewed, and agree with the discharge instructions and disposition. Disposition/Present on Arrival - Present on Arrival Any Indicators Present on Arrival: No History of DVT/PE: No History of Uncontrolled Diabetes: No Urinary Catheter: No History Surgical Site Infection Following: None - Disposition Have Diagnosis and Disposition been Completed?: Yes Diagnosis: Chest pain Disposition: Transfer [place] INPATIENT Disposition Time: 14:11 Condition: GOOD
[2018-08-30 11:43] VITALS: BMI 27.7
--- NOTE | 2018-08-30 12:59 | RAD ---
Date of service: 08/30/2018 HISTORY: Chest pain COMPARISON: 08/12/2018 FINDINGS: LUNGS: No active pulmonary disease. PLEURA: No significant pleural effusion identified, no pneumothorax apparent. CARDIOVASCULAR: No aortic atherosclerotic calcification present OSSEOUS STRUCTURES: No significant abnormalities. VISUALIZED UPPER ABDOMEN: Normal. OTHER FINDINGS: None. IMPRESSION: No active disease.
[2018-08-30 13:24] LABS: BASO # 0.02 K/mm3 (0.0-2.0); BASO % 0.5 % (0.0-3.0); EOS # 0.1 (0.0-0.7); EOS % 2.6 % (1.5-5.0); GRAN # 2.59 (1.4-6.5); GRAN % 61.7 % (50.0-68.0); LYMPH # 1.3 (1.2-3.4); MEAN CORPUSCULAR HEMOGLOBIN 26.4 pg (25.0-35.0); MEAN CORPUSCULAR HGB CONC 32.6 g/dl (31.0-37.0); MEAN PLATELET VOLUME 9.3 fl (7.0-11.0); MONO # 0.2 (0.1-0.6); MONO % 5.2 % (1.0-6.0); RBC 5.31 10^6/uL (3.5-6.1); RED CELL DISTRIBUTION WIDTH 14.2 % (11.5-14.5); URINE BILIRUBIN NEGATIVE (NEGATIVE); URINE BLOOD NEGATIVE (NEGATIVE); URINE GLUCOSE (UA) NEGATIVE (NEGATIVE); URINE LEUKOCYTE ESTERASE NEGATIVE Leu/uL (NEGATIVE); URINE PROTEIN NEGATIVE mg/dL (<30 mg/dL); URINE UROBILINOGEN 0.2 E.U./dL (<1 E.U./dL); WHITE BLOOD COUNT 4.2 10^3/ul (4.5-11.0)
[2018-08-30 13:34] LABS: ALB/GLOB RATIO 1.4 (1.1-1.8); ALBUMIN 4.5 g/dL (3.0-4.8); ALT/SGPT 23 U/L (7-56); AST/SGOT 21 U/L (17-59); BLOOD UREA NITROGEN 11 mg/dL (7-21); CALCIUM 9.7 mg/dL (8.4-10.5); GFR NON-AFRICAN AMERICAN > 60
[2018-08-30 13:41] LABS: URINE APPEARANCE CLEAR (CLEAR); URINE COLOR YELLOW (YELLOW)
[2018-08-30 13:45] LABS: B-TYPE NATRIURETIC PEPTIDE 106 pg/mL (0-450); TROPONIN I < 0.01 ng/mL
[2018-08-30 14:10] LABS: FREE T4 1.41 ng/dL (0.78-2.19)
--- NOTE | 2018-08-30 14:53 | CARD ---
APPROVED REPORT Date of service: 08/30/2018 EKG Measurement Heart [id number] <Conclusion> Normal sinus rhythm Normal ECG
[2018-08-30] MEDS ORDERED: Levothyroxine 100 MCG TAB PO STA (15:12)
[2018-08-30] MEDS ORDERED: Pneumococcal 23-Valent Vaccine IM ONE (18:13)
[2018-08-30] MEDS ORDERED: Influenza Vaccine 60 mcg/0.5 mL SYR (4YR UP) IM ONE (18:13)
[2018-08-30] MEDS: diltiaZEM 180 mg/24 Hours CD Cap PO SCH (18:33)
[2018-08-30 21:31] LABS: HDL CHOLESTEROL 48 mg/dL (29-60)
[2018-08-30 21:44] LABS: TROPONIN I < 0.01 ng/mL
[2018-08-30 21:56] LABS: LDL CHOLESTEROL 84 mg/dL (0-129)
[2018-08-31] MEDS ORDERED: Levothyroxine 100 MCG TAB PO SCH (07:30)
--- NOTE | 2018-08-31 07:38 | HP ---
HISTORY OF PRESENT ILLNESS: The patient is 62 years old who was recently admitted on 08/12/2018 and was discharged on 08/14/2018, after he was admitted for palpitation and was found to have supraventricular tachycardia. He was on diltiazem that he used to be on 120, it was increased to 180. The patient states he was doing well until he started to have some chest discomfort for the last 2 days. Pain was radiating towards the left arm. He was feeling nauseous along with it. The patient called ambulance and he was given nitroglycerin and Zofran on the way with some relief. The patient had a stress test in 2013. PAST MEDICAL HISTORY: The patient also has past medical history significant for: 1. Hypothyroidism. 2. Hypertension. 3. Hyperlipidemia. ALLERGIES: THE PATIENT IS ALLERGIC TO PENICILLIN. MEDICATIONS AT HOME: He is on diltiazem 180 mg daily, Flomax 0.4 daily and levothyroxine 100 mcg daily. SOCIAL HISTORY: He used to be heavy smoker, socially drinks. PHYSICAL EXAMINATION: GENERAL: The patient is awake, alert, oriented, communicative. VITAL SIGNS: He is afebrile, pulse 67, respiration 19, blood pressure 124/82. LUNGS: Bilateral fair airflow. No rhonchi or crackle. HEART: S1 and S2 audible. ABDOMEN: Soft, nontender. No rebound. No guarding. NEUROLOGIC: The patient is awake and alert, able to communicate. EXTREMITIES: Bilateral legs, no edema. LABORATORY EXAMINATION: WBC 4.2, hemoglobin 14, hematocrit 43 and platelets 312. Chemistry: Sodium 142, potassium 4.2, chloride 105, CO2 of 27, BUN 11, creatinine 1.0, blood sugar of 112. Urinalysis is unremarkable. ASSESSMENT AND PLAN: 1. Chest pain, rule out coronary artery disease. 2. Status post supraventricular tachycardia. 3. Hypertension. 4. Hyperlipidemia. 5. Hypothyroidism. PLAN: The patient will be admitted in telemetry. We will follow up cardiac enzymes. Cardiology consult by Dr. Russ has been requested. The patient will be restarted on diltiazem. We will order for aspirin. Last cholesterol done on 08/12/2018; total was 174, LDL was 82, so the patient will be placed in observation and Dr. Russ will evaluate the patient in a.m. Jose Moe MD [facility] # [id number]
[2018-08-31] MEDS ORDERED: Metoprolol Succinate 25 mg XL Tab PO SCH (08:00)
--- NOTE | 2018-08-31 08:22 | CP.PCM.PN ---
Subjective - Date & Time of Evaluation Date of Evaluation: 08/31/18 Time of Evaluation: 07:21 - Subjective Subjective: Chuck Wang PGY2 Progress Note for Dr. Pena Patient was seen and examined at bedside. He states that overnight, he also had an episode when he woke up and had trouble breathing, however, there was nothing noted on bisque tile burner or nurse's notes. He denies any nausea/vomiting, fevers/chills, shortness of breath and any current symptoms. He states that all his symptoms occur when he's asleep and are usually associated with a troubling dream or thought. The patient denies any current stressors in his life. He had a stress test planned for yesterday (Which was cancelled because the patient's insurance authorization was not completed yet), and also an endocrinology appointment planned for yesterday which he missed because of the admission. He also states that since the time of his admission, his PMD at [facility], has discontinued his metoprolol and Norvasc. Objective - Vital Signs/Intake and Output Vital Signs (last 24 hours): Temp Pulse Resp BP Pulse Ox 98.1 F 60 18 124/82 96 08/30/18 17:41 08/31/18 06:00 08/30/18 17:46 08/30/18 18:33 08/30/18 17:41 Intake and Output: 08/31/18 08/31/18 06:59 18:59 Intake Total 420 Balance 420 - Medications Medications: Current Medications Acetaminophen (Tylenol 325mg Tab) 650 mg PO Q6H PRN PRN Reason: Fever >100.4 F Aspirin (Ecotrin) 81 mg PO DAILY [facility] Diltiazem HCl (Cardizem Cd) 180 mg PO DAILY [facility] Last Admin: 08/30/18 18:33 Dose: 180 mg Isosorbide Mononitrate (Imdur Er) 30 mg PO DAILY [facility] Levothyroxine Sodium (Synthroid) 100 mcg PO ACB [facility] Metoprolol Succinate (Toprol Xl) 25 mg PO BRK [facility] Ondansetron HCl (Zofran Inj) 4 mg IVP Q6H PRN PRN Reason: Nausea/Vomiting Tamsulosin HCl (Flomax) 0.4 mg PO HS [facility] Last Admin: 08/30/18 21:21 Dose: 0.4 mg - Labs Labs: 08/30/18 13:15 08/30/18 13:15 - Constitutional Appears: Well, Non-toxic, No Acute Distress - Head Exam Head Exam: NORMAL INSPECTION - Eye Exam Eye Exam: Normal appearance Pupil Exam: NORMAL ACCOMODATION - ENT Exam ENT Exam: Mucous Membranes Moist, Normal Exam - Neck Exam Neck Exam: Normal Inspection - Respiratory Exam Respiratory Exam: Clear to Ausculation Bilateral, NORMAL BREATHING PATTERN. absent: Wheezes, Respiratory Distress - Cardiovascular Exam Cardiovascular Exam: RRR, +S1, +S2. absent: JVD, Murmur - GI/Abdominal Exam GI & Abdominal Exam: Soft, Normal Bowel Sounds. absent: Distended, Tenderness - Extremities Exam Extremities Exam: Full ROM, Normal Capillary Refill, Normal Inspection. absent: Pedal Edema - Back Exam Back Exam: NORMAL INSPECTION. absent: CVA tenderness (L), CVA tenderness (R) - Neurological Exam Neurological Exam: Alert, Awake, Oriented x3 - Psychiatric Exam Psychiatric exam: Normal Affect, Normal Mood - Skin Skin Exam: Normal Color, Warm Assessment and Plan - Assessment and Plan (Free Text) Assessment: 62-year-old [place] male with a PMH of SVT, hypothyroidism (s/p medical treatment in 1990 for hyperthyroidism), HTN and BPH admitted for typical chest, that resolved with nitro and ASA. Patient has a HEART score of 4 making him at moderate risk for cardiac events. Given his consistent history of awakening from sleep, and association with dreams, the etiology could be psychogenic. Prior chart, VS and labs were reviewed. Plan: - trend troponin q6 hrs - initial EKG reviewed and was unremarkable - Cardio consulted, recs appreciated - Echo ordered - cont Cardizem - cont ASA daily - admit to telemetry for observation to r/o ACS - cont Synthroid home dose - cont Flomax - PTX 40 PO daily Case was reviewed and discussed with attending, Dr. Jean Wang PGY2
[2018-08-31] MEDS: diltiaZEM 180 mg/24 Hours CD Cap PO SCH (09:22)
[2018-08-31 09:25] VITALS: BP 130/90
[2018-08-31 10:25] VITALS: RESP 19; TEMP 98.3; O2SAT 97
--- NOTE | 2018-08-31 13:58 | CP.PCM.DIS ---
<Chuck Wang - Last Filed: 08/31/18 17:11> Provider - Provider Date of Admission: 08/30/18 14:13 Attending physician: Kapil Pena MD Primary care physician: Mandy Gleason DO Time Spent in preparation of Discharge (in minutes): 40 Diagnosis - Discharge Diagnosis (1) Chest pain Status: Acute (2) SVT (supraventricular tachycardia) Status: Chronic (3) Hypothyroid Status: Chronic Priority: Medium Hospital Course - Lab Results Lab Results: Most Recent Lab Values WBC 4.2 10^3/ul (4.5-11.0) L D 08/30/18 13:15 RBC 5.31 10^6/uL (3.5-6.1) 08/30/18 13:15 Hgb 14.0 g/dL (14.0-18.0) 08/30/18 13:15 Hct 43.0 % (42.0-52.0) 08/30/18 13:15 MCV 81.0 fl (80.0-105.0) 08/30/18 13:15 MCH 26.4 pg (25.0-35.0) 08/30/18 13:15 MCHC 32.6 g/dl (31.0-37.0) 08/30/18 13:15 RDW 14.2 % (11.5-14.5) 08/30/18 13:15 Plt Count 312 10^3/uL (120.0-450.0) 08/30/18 13:15 MPV 9.3 fl (7.0-11.0) 08/30/18 13:15 Gran % 61.7 % (50.0-68.0) 08/30/18 13:15 Lymph % (Auto) 30.0 % (22.0-35.0) 08/30/18 13:15 Cowley % (Auto) 5.2 % (1.0-6.0) 08/30/18 13:15 Eos % (Auto) 2.6 % (1.5-5.0) 08/30/18 13:15 Baso % (Auto) 0.5 % (0.0-3.0) 08/30/18 13:15 Gran # 2.59 (1.4-6.5) 08/30/18 13:15 Lymph # (Auto) 1.3 (1.2-3.4) 08/30/18 13:15 Cowley # (Auto) 0.2 (0.1-0.6) 08/30/18 13:15 Eos # (Auto) 0.1 (0.0-0.7) 08/30/18 13:15 Baso # (Auto) 0.02 K/mm3 (0.0-2.0) 08/30/18 13:15 Sodium 142 mmol/L (132-148) 08/30/18 13:15 Potassium 4.2 mmol/L (3.6-5.0) 08/30/18 13:15 Chloride 105 mmol/L (98-107) 08/30/18 13:15 Carbon Dioxide 27 mmol/L (21-33) 08/30/18 13:15 Anion Gap 14 (10-20) 08/30/18 13:15 BUN 11 mg/dL (7-21) 08/30/18 13:15 Creatinine 1.0 mg/dl (0.8-1.5) 08/30/18 13:15 Est GFR ( Amer) > 60 08/30/18 13:15 Est GFR (Non-Af Amer) > 60 08/30/18 13:15 Random Glucose 112 mg/dL (70-110) H 08/30/18 13:15 Calcium 9.7 mg/dL (8.4-10.5) 08/30/18 13:15 Magnesium 2.2 mg/dL (1.7-2.2) 08/30/18 13:15 Total Bilirubin 0.4 mg/dL (0.2-1.3) 08/30/18 13:15 AST 21 U/L (17-59) 08/30/18 13:15 ALT 23 U/L (7-56) 08/30/18 13:15 Alkaline Phosphatase 82 U/L (38-126) 08/30/18 13:15 Troponin I < 0.01 ng/mL 08/30/18 21:12 NT-Pro-B Natriuret Pep 106 pg/mL (0-450) 08/30/18 13:15 Total Protein 7.7 g/dL (5.8-8.3) 08/30/18 13:15 Albumin 4.5 g/dL (3.0-4.8) 08/30/18 13:15 Globulin 3.2 gm/dL 08/30/18 13:15 Albumin/Globulin Ratio 1.4 (1.1-1.8) 08/30/18 13:15 Triglycerides 142 mg/dL (35-160) 08/30/18 21:12 Cholesterol 149 mg/dL (130-200) 08/30/18 21:12 LDL Cholesterol Direct 84 mg/dL (0-129) 08/30/18 21:12 HDL Cholesterol 48 mg/dL (29-60) 08/30/18 21:12 Free T4 1.41 ng/dL (0.78-2.19) 08/30/18 12:00 TSH 3rd Generation 0.49 mIU/mL (0.46-4.68) 08/30/18 12:00 Urine Color Yellow (YELLOW) 08/30/18 13:15 Urine Appearance Clear (CLEAR) 08/30/18 13:15 Urine pH 6.0 (4.7-8.0) 08/30/18 13:15 Ur Specific [place] 1.010 (1.005-1.035) 08/30/18 13:15 Urine Protein Negative mg/dL (<30 mg/dL) 08/30/18 13:15 Urine Glucose (UA) Negative mg/dL (NEGATIVE) 08/30/18 13:15 Urine Ketones Negative mg/dL (NEGATIVE) 08/30/18 13:15 Urine Blood Negative (NEGATIVE) 08/30/18 13:15 Urine Nitrate Negative (NEGATIVE) 08/30/18 13:15 Urine Bilirubin Negative (NEGATIVE) 08/30/18 13:15 Urine Urobilinogen 0.2 E.U./dL (<1 E.U./dL) 08/30/18 13:15 Ur Leukocyte Esterase Negative Estefanía/uL (NEGATIVE) 08/30/18 13:15 - Hospital Course Hospital Course: Mr. Hammonds is a 62-year-old [place] male with a PMH of hypothyroidism (medically treated for hyperthyroidism in 1990), HTN, and BPH who was admitted for an episode of chest pain that woke him up from his sleep, that radiated to his left arm, and shortness of breath. In route to ED, the patient was given aspirin and nitro which relieved his pain. Of note, the patient was admitted in early August 2018 for palpitations and was found to have SVT, and was discharged on Cardizem 120 mg and metoprolol, but his PMD at [facility] discontinued the metoprolol and increased the Cardizem to 180 mg daily. The patient states that he has been very uncomfortable with the new dose, and felt that someone was "pulling him back ". The patient had a stress test planned the day of this admission, but was canceled because the insurance did not authorize it yet. ACS was ruled out, and patient's symptoms improved. Cardiology was consulted, and recommended continuing patient on Cardizem 120 mg and metoprolol. He underwent an echocardiogram but final read is pending at the time of discharge. EKG and CXR were unremarkbale. Per cardiology, the patient is stable for discharge, and should see Dr. Russ for stress test on 09/07/2018. The patient also received prescription for Nitrostat SL for symptomatic relief. Discharge Exam - Head Exam Head Exam: ATRAUMATIC, NORMAL INSPECTION - Eye Exam Eye Exam: EOMI, Normal appearance, PERRL Pupil Exam: NORMAL ACCOMODATION - ENT Exam ENT Exam: Mucous Membranes Moist, Normal Exam - Neck Exam Neck exam: Normal Inspection - Respiratory Exam Respiratory Exam: NORMAL BREATHING PATTERN. absent: Rales, Wheezes, Respiratory Distress - Cardiovascular Exam Cardiovascular Exam: RRR, +S1, +S2. absent: Systolic Murmur - GI/Abdominal Exam GI & Abdominal Exam: Normal Bowel Sounds, Soft. absent: Distended, Tenderness - Extremities Exam Extremities exam: full ROM, pedal pulses present - Back Exam Back exam: NORMAL INSPECTION - Neurological Exam Neurological exam: Alert, CN II-XII Intact, Normal Gait, Oriented x3 - Psychiatric Exam Psychiatric exam: Normal Mood - Skin Skin Exam: Normal Color Discharge Plan - Discharge Medications Prescriptions: RX: diltiaZEM [Cardizem] 120 mg PO DAILY #7 tab Nitroglycerin [Nitrostat SL Tab] 0.3 mg SL Q5MIN #12 tab.subl RX: Metoprolol Succinate XL [Toprol XL] 25 mg PO BRK #7 tab - Follow Up Plan Condition: GOOD Disposition: HOME/ ROUTINE Instructions: Supraventricular Tachycardia (SVT) Additional Instructions: - please take the Cardizem and Metoprolol as prescribed - please use the nitrostat if chest pain persists as prescribed - please continue your home medications as previously prescribed - please follow up with your PMD within 1 week - please follow up with Dr. Rsus on 09/07 for stress test Referrals: Mandy Gleason DO [Primary Care Provider] - Teto Russ MD [Staff Provider] - <Kapil Pean - Last Filed: 08/31/18 18:49> Provider - Provider Date of Admission: 08/30/18 14:13 Attending physician: Kapil Pena MD Primary care physician: Mandy Gleason DO Hospital Course - Lab Results Lab Results: Most Recent Lab Values WBC 4.2 10^3/ul (4.5-11.0) L D 08/30/18 13:15 RBC 5.31 10^6/uL (3.5-6.1) 08/30/18 13:15 Hgb 14.0 g/dL (14.0-18.0) 08/30/18 13:15 Hct 43.0 % (42.0-52.0) 08/30/18 13:15 MCV 81.0 fl (80.0-105.0) 08/30/18 13:15 MCH 26.4 pg (25.0-35.0) 08/30/18 13:15 MCHC 32.6 g/dl (31.0-37.0) 08/30/18 13:15 RDW 14.2 % (11.5-14.5) 08/30/18 13:15 Plt Count 312 10^3/uL (120.0-450.0) 08/30/18 13:15 MPV 9.3 fl (7.0-11.0) 08/30/18 13:15 Gran % 61.7 % (50.0-68.0) 08/30/18 13:15 Lymph % (Auto) 30.0 % (22.0-35.0) 08/30/18 13:15 Cowley % (Auto) 5.2 % (1.0-6.0) 08/30/18 13:15 Eos % (Auto) 2.6 % (1.5-5.0) 08/30/18 13:15 Baso % (Auto) 0.5 % (0.0-3.0) 08/30/18 13:15 Gran # 2.59 (1.4-6.5) 08/30/18 13:15 Lymph # (Auto) 1.3 (1.2-3.4) 08/30/18 13:15 Cowley # (Auto) 0.2 (0.1-0.6) 08/30/18 13:15 Eos # (Auto) 0.1 (0.0-0.7) 08/30/18 13:15 Baso # (Auto) 0.02 K/mm3 (0.0-2.0) 08/30/18 13:15 Sodium 142 mmol/L (132-148) 08/30/18 13:15 Potassium 4.2 mmol/L (3.6-5.0) 08/30/18 13:15 Chloride 105 mmol/L (98-107) 08/30/18 13:15 Carbon Dioxide 27 mmol/L (21-33) 08/30/18 13:15 Anion Gap 14 (10-20) 08/30/18 13:15 BUN 11 mg/dL (7-21) 08/30/18 13:15 Creatinine 1.0 mg/dl (0.8-1.5) 08/30/18 13:15 Est GFR ( Amer) > 60 08/30/18 13:15 Est GFR (Non-Af Amer) > 60 08/30/18 13:15 Random Glucose 112 mg/dL (70-110) H 08/30/18 13:15 Calcium 9.7 mg/dL (8.4-10.5) 08/30/18 13:15 Magnesium 2.2 mg/dL (1.7-2.2) 08/30/18 13:15 Total Bilirubin 0.4 mg/dL (0.2-1.3) 08/30/18 13:15 AST 21 U/L (17-59) 08/30/18 13:15 ALT 23 U/L (7-56) 08/30/18 13:15 Alkaline Phosphatase 82 U/L (38-126) 08/30/18 13:15 Troponin I < 0.01 ng/mL 08/30/18 21:12 NT-Pro-B Natriuret Pep 106 pg/mL (0-450) 08/30/18 13:15 Total Protein 7.7 g/dL (5.8-8.3) 08/30/18 13:15 Albumin 4.5 g/dL (3.0-4.8) 08/30/18 13:15 Globulin 3.2 gm/dL 08/30/18 13:15 Albumin/Globulin Ratio 1.4 (1.1-1.8) 08/30/18 13:15 Triglycerides 142 mg/dL (35-160) 08/30/18 21:12 Cholesterol 149 mg/dL (130-200) 08/30/18 21:12 LDL Cholesterol Direct 84 mg/dL (0-129) 08/30/18 21:12 HDL Cholesterol 48 mg/dL (29-60) 08/30/18 21:12 Free T4 1.41 ng/dL (0.78-2.19) 08/30/18 12:00 TSH 3rd Generation 0.49 mIU/mL (0.46-4.68) 08/30/18 12:00 Urine Color Yellow (YELLOW) 08/30/18 13:15 Urine Appearance Clear (CLEAR) 08/30/18 13:15 Urine pH 6.0 (4.7-8.0) 08/30/18 13:15 Ur Specific [place] 1.010 (1.005-1.035) 08/30/18 13:15 Urine Protein Negative mg/dL (<30 mg/dL) 08/30/18 13:15 Urine Glucose (UA) Negative mg/dL (NEGATIVE) 08/30/18 13:15 Urine Ketones Negative mg/dL (NEGATIVE) 08/30/18 13:15 Urine Blood Negative (NEGATIVE) 08/30/18 13:15 Urine Nitrate Negative (NEGATIVE) 08/30/18 13:15 Urine Bilirubin Negative (NEGATIVE) 08/30/18 13:15 Urine Urobilinogen 0.2 E.U./dL (<1 E.U./dL) 08/30/18 13:15 Ur Leukocyte Esterase Negative Estefanía/uL (NEGATIVE) 08/30/18 13:15 - Hospital Course Hospital Course: Pt seen and examined. I have reviewed the note of the medical imaging specialist and agree with it. I have discussed the assessment and plan with the resident. I have reviewed the patient's labs and medications. Pt with CP and palpitations. He was given ASA and Nitro which has improved. He has hx of SVT and will see his associate professor of surgery as outpt. He was seen by Dr Russ from cardiology and will get a stress test done on 09-07-18 as outpt. He will get Metoprolol
[2018-08-31 14:53] VITALS: PULSE 66
--- NOTE | 2018-08-31 21:38 | CON ---
DATE: 08/31/2018 HISTORY OF PRESENT ILLNESS: The patient is a 62-year-old male who presents with an episode of hypertension, marked palpitations associated with his SVT as well as chest pain. Since he has been placed on his high dose of Cardizem and small doses of beta blockers, symptoms have resolved. He has no symptoms currently. He is ambulating without symptoms. PAST MEDICAL HISTORY: Includes hypertension, documented SVT treated with Cardizem and beta blockers, history of COPD from active smoking. MEDICATIONS: His primary care doctor decreased his medications, both beta-blockers as well as Cardizem recently. SOCIAL HISTORY: The patient is an active smoker despite being told of his need to stop. REVIEW OF SYSTEMS: Fourteen-point review of systems is reviewed in detail. No additional symptoms other than the ones above. PHYSICAL EXAMINATION: VITAL SIGNS: Blood pressure 130/90, heart rates in the 80s. NECK: Negative JVD. LUNGS: Without rales. HEART: S1, S2. EXTREMITIES: Without edema. LABORATORY DATA: EKG is normal sinus rhythm and within normal limits. Troponins are negative x2. Cholesterol is 149, hemoglobin is 14. IMPRESSION: 1. Recurrent supraventricular tachycardias after decreasing his medication. 2. Chest pain which is now resolved. 3. No evidence for acute coronary syndrome. 4. Chronic obstructive pulmonary disease. 5. History of documented supraventricular tachycardia. 6. Hypertension. 7. Palpitations. Given these findings, the patient can be discharged from a cardiac perspective. He is ambulating without symptoms. He should go home on Cardizem 180 mg as well as low-dose beta blockers. He has a stress test scheduled for next week after extensive efforts in obtaining approval for a nuclear scan with his Medicaid insurance. Teto Russ MD
--- NOTE | 2018-09-01 10:00 | CARD ---
APPROVED REPORT Date of service: 08/31/2018 EXAM: Two-dimensional and M-mode echocardiogram with Doppler and color Doppler. Other Information Quality : AverageRhythm : INDICATION Chest Pain 2D DIMENSIONS Left Atrium (2D)3.8 (1.6-4.0cm)IVSd1.3 (0.7-1.1cm) LVDd3.6 (3.9-5.9cm)PWd1.3 (0.7-1.1cm) LVDs2.5 (2.5-4.0cm)FS (%) 32.0 % LVEF (%)61.0 (>50%) M-Mode DIMENSIONS Aortic Root2.40 (2.2-3.7cm)Aortic Cusp Exc.1.70 (1.5-2.0cm) Aortic Valve AoV Peak Ebomgrmk427.0cm/s Mitral Valve MV E Cycwoqsb83.8cm/sMV A Cndtrzfp08.7cm/sE/A ratio0.9 TDI E/Lateral E'0.0E/Medial E'0.0 Tricuspid Valve TR Peak [id number]/sRAP [id number] Peak Gr.26mmHg [id number] LEFT VENTRICLE The left ventricle is normal size. There is borderline to mild concentric left ventricular hypertrophy. The left ventricular function is normal. The left ventricular ejection fraction is within the normal range. There is normal LV segmental wall motion. RIGHT VENTRICLE The right ventricle is normal size. ATRIA The left atrium size is normal. The right atrium size is normal. The interatrial septum is intact with no evidence for an atrial septal defect. AORTIC VALVE The aortic valve is normal in structure. MITRAL VALVE The mitral valve is normal in structure. Mitral regurgitation is mild. TRICUSPID VALVE The tricuspid valve is normal in structure. There is mild tricuspid regurgitation. PULMONIC VALVE The pulmonary valve is normal in structure. GREAT VESSELS The aortic root is normal in size. PERICARDIAL EFFUSION There is no pericardial effusion. <Conclusion> The left ventricle is normal size. There is borderline to mild concentric left ventricular hypertrophy. The left ventricular function is normal. Mitral regurgitation is mild. There is mild tricuspid regurgitation.
== END 2018-08-31 14:59 | disposition home or self-care (01) ==
LOC: ED 11:03 → ERH 14:13 → 3RSO 16:57
PROVIDERS: ADMIT Internal Medicine; ATTEND Internal Medicine Nephrology
DX: I47.1 Supraventricular tachycardia (principal); R07.89 Other chest pain; E03.9 Hypothyroidism, unspecified; E78.5 Hyperlipidemia, unspecified; F17.200 Nicotine dependence, unspecified, uncomplicated; I10 Essential (primary) hypertension; J44.9 Chronic obstructive pulmonary disease, unspecified; K21.9 Gastro-esophageal reflux disease without esophagitis; M94.0 Chondrocostal junction syndrome [Tietze]; N40.0 Benign prostatic hyperplasia without lower urinary tract symptoms; Z79.890 Hormone replacement therapy; Z88.0 Allergy status to penicillin
CPT/HCPCS: 36415; 71045; 80053; 80061; 81003; 83735; 83880; 84439; 84443; 84484; 85025; 93005; 93306; 96374; 96375; 99283; G0378; J1885; J2765

== ENCOUNTER 2018-09-05 06:14 | Emergency (ER) | payer MEDICAID ==
[2018-09-05 06:22] VITALS: TEMP 98
[2018-09-05 06:24] VITALS: BMI 27.9
[2018-09-05 07:49] LABS: BASO # 0.01 K/mm3 (0.0-2.0); BASO % 0.2 % (0.0-3.0); EOS # 0.2 (0.0-0.7); EOS % 3.7 % (1.5-5.0); GRAN # 2.05 (1.4-6.5); GRAN % 50.7 % (50.0-68.0); HEMOGLOBIN 13.5 g/dL (14.0-18.0); LYMPH # 1.5 (1.2-3.4); LYMPH % 36.8 % (22.0-35.0); MEAN CELL VOLUME 81.4 fl (80.0-105.0); MEAN CORPUSCULAR HEMOGLOBIN 26.1 pg (25.0-35.0); MEAN CORPUSCULAR HGB CONC 32.1 g/dl (31.0-37.0); MEAN PLATELET VOLUME 9.5 fl (7.0-11.0); MONO # 0.4 (0.1-0.6); MONO % 8.6 % (1.0-6.0); RBC 5.17 10^6/uL (3.5-6.1); RED CELL DISTRIBUTION WIDTH 14.2 % (11.5-14.5); WHITE BLOOD COUNT 4.1 10^3/uL (4.5-11.0)
--- NOTE | 2018-09-05 07:58 | ED PDOC ---
Arrival/HPI - General Chief Complaint: Chest Pain Time Seen by Provider: 09/05/18 06:15 Historian: Patient - History of Present Illness Narrative History of Present Illness (Text): 09/05/18 07:30 63 M with PMHx of hypertension, enlarged prostate, hypothyroidism, SVT(on cardizem), who presents via EMS with cc of left sided chest pain, chest tightness and shortness of breath since 04:00 the morning of 09/04/18, with difficulty breathing on waking. Patient states he feels like there is something stuck in his chest and throat, noting he feels something on left side of back, with mild relief when coughing. Patient notes dry mouth. Patient states he is a previous smoker, 30 years ago. Patient notes his last stress test was approximately 7-8 years ago. Pt states he currently feels betterm, bu notes he needs to cough from time to time to breath normally. Patient denies any shortness of breath currently or any other complaints. PMD: Dr. Gleason Time/Duration: 24 hours (patient notes onset as 04:00 previous morning) Symptom Onset: Sudden Symptom Course: Unchanged Activities at Onset: Light Context: Home Past Medical History - Provider Review Nursing Documentation Reviewed: Yes - Infectious Disease Hx of Infectious Diseases: None - Tetanus Immunization Tetanus Immunization: Unknown - Cardiac Hx Hypertension: Yes - Pulmonary Hx Respiratory Disorders: No - Endocrine/Metabolic Hx Endocrine Disorders: Yes Hx Hypothyroidism: Yes - Gastrointestinal Hx Gastrointestinal Disorders: Yes Hx Gastritis: Yes Hx Gastroesophageal Reflux: Yes - Genitourinary/Gynecological Hx Prostate Problems: Yes - Psychiatric Hx Psychophysiologic Disorder: Yes Hx Anxiety: Yes Hx Substance Use: No - Surgical History Hx Cataract Extraction: Yes Hx Cardiac Catheterization: Yes (about 5 yrs ago) - Anesthesia Hx Anesthesia: Yes Hx Anesthesia Reactions: No Hx Malignant Hyperthermia: No - Suicidal Assessment Feels Threatened In Home Enviroment: No Family/Social History - Physician Review Nursing Documentation Reviewed: Yes Family/Social History: No Known Family HX Smoking Status: Former Smoker Hx Alcohol Use: No Hx Substance Use: No Hx Substance Use Treatment: No Allergies/Home Meds Allergies/Adverse Reactions: Allergies Penicillins Allergy (Verified 09/05/18 06:22) SWELLING Home Medications: Home Meds Medication Instructions Recorded Confirmed Tamsulosin [Flomax] 0.4 mg PO DAILY 09/25/14 09/05/18 Levothyroxine Sodium 100 mcg PO DAILY 06/08/17 09/05/18 Aspirin [Aspirin Chewable] 81 mg PO DAILY 09/05/18 09/05/18 Review of Systems - Physician Review All systems were reviewed & negative as marked: Yes (All other systems negative except that noted in the HPI.) Physical Exam - Physical Exam Narrative Physical Exam (Text): PE: Gen: VS reviewed, alert, well developed, well nourished, nontoxic, mild distress Eye: EOMI, PERRL Neck: no JVD, supple, no adenopathy CV: regular rate, regular rhythm, no rubs,no murmur, S1, S2 Pulm: no distress, clear to auscultation, no wheeze, no rhonchi, breath sounds equal, no rales Abd: soft, nontender, no guarding, no rebound, no rigidity Ext: no edema Skin: good color, no rash, no cyanosis Psych: responds appropriately to questions, normal affect Neuro: oriented x3, CN2-12 intact grossly, motor intact, sensation intact Vital Signs Reviewed: Yes Vital Signs Temp Pulse Resp BP Pulse Ox 09/05/18 06:26 100 09/05/18 06:20 98.0 F 70 20 138/88 98 Temperature: Afebrile Blood Pressure: Normal Pulse: Regular Respiratory Rate: Normal Appearance: Positive for: Well-Appearing, Non-Toxic Pain Distress: Mild Mental Status: Positive for: Alert and Oriented X 3 Medical Decision Making ED Course and Treatment: 09/05/18 07:30 Impression: 63 year old male presents with cc of left sided chest pain, chest tightness and shortness of breath since 04:00 the morning of 09/04/18, with difficulty breathing on waking Differential Diagnosis included but are not limited to: Plan: -- Labs -- CMP -- TSH -- Troponin I -- X-ray of chest -- nurse monitoring -- Reassess and disposition Prior Visits: Notes and results from previous visits were reviewed. Patient was last seen in the emergency department on 08/30/18 who was brought by EMS to the ED complaining of 2 days of chest pain radiating to his left arm. Patient's disposition was: Transfer [facility]. Progress Notes: 09/05/18 08:55 dimer negative, no sig clinical suspicion for aortic dissection, heart score 2, will get serial troponin and plan for discharge 09/05/18 11:20 patient feel better and ready to go home. 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 - RAD Interpretation Narrative RAD Interpretations (Text): X-ray of chest reviwed by radiologist, shows: Dictator : Ryan Belcher MD Report Date : 09/05/2018 08:59:02 FINDINGS: LUNGS: No active pulmonary disease. PLEURA: No significant pleural effusion identified, no pneumothorax apparent. CARDIOVASCULAR: No aortic atherosclerotic calcification present. Normal cardiac size. No pulmonary vascular congestion. OSSEOUS STRUCTURES: No significant abnormalities. VISUALIZED UPPER ABDOMEN: Normal. OTHER FINDINGS: None. IMPRESSION: No interval acute cardiopulmonary disease appreciated. Radiology Orders: 09/05/18 07:35 CHEST PORTABLE [RAD] [employer]: Radiologist - EKG Interpretation EKG Interpretation (Text): 09/05/18 07:40 0619: nsr at 76 bpm, nml qrs, nml axis, no acute sttw abn 09/05/18 08:05 Interpreted by ED Physician: Yes - Scribe Statement The provider has reviewed the documentation as recorded by the Scribe Amanda Mckenzieh All medical record entries made by the Scribe were at my direction and personally dictated by me. I have reviewed the chart and agree that the record accurately reflects my personal performance of the history, physical exam, medical decision making, and the department course for this patient. I have also personally directed, reviewed, and agree with the discharge instructions and disposition. Disposition/Present on Arrival - Present on Arrival Any Indicators Present on Arrival: No History of DVT/PE: No History of Uncontrolled Diabetes: No Urinary Catheter: No History of Decub. Ulcer: No History Surgical Site Infection Following: None - Disposition Have Diagnosis and Disposition been Completed?: Yes Diagnosis: Chest pain Disposition: HOME/ ROUTINE Disposition Time: 11:36 Patient Plan: Discharge Condition: STABLE Discharge Instructions (ExitCare): Chest Pain (ED) Additional Instructions: Return for any new or worsening symptoms. VICENTE JAUREGUI, thank you for letting us take care of you today. Your provider was Dr. David Ayers and you were treated for chest pain. The emergency medical care you received today was directed at your acute symptoms. If you were prescribed any medication, please fill it and take as directed. It may take several days for your symptoms to resolve. Return to the Emergency Department if your symptoms worsen, do not improve, or if you have any other problems. Please contact your doctor or call one of the physicians/clinics you have been referred to that are listed on the Patient Visit Information form that is included in your discharge packet. Bring any paperwork you were given at discharge with you along with any medications you are taking to your follow up visit. Our treatment cannot replace ongoing medical care by a primary care provider outside of the emergency department. Thank you for allowing the [facility] team to be part of your care today. If you had an X-Ray or CT scan: A Radiologist will review the ED reading if any change in treatment is needed we will contact you. If you had a blood, urine, or wound culture: It will take several days for the results, if any change in treatment is needed we will contact you. If you had an STI test: It will take 48 hours for the results. Please call after 1 week if you have not heard back. Referrals: Mandy Gleason DO [Primary Care Provider] - Follow up with primary Forms: [facility] (Romansh), WORK NOTE
[2018-09-05 08:00] LABS: ALB/GLOB RATIO 1.4 (1.1-1.8); ALBUMIN 4.3 g/dL (3.0-4.8); ALT/SGPT 19 U/L (7-56); AST/SGOT 22 U/L (17-59); BLOOD UREA NITROGEN 10 mg/dL (7-21); CALCIUM 9.3 mg/dL (8.4-10.5); GFR NON-AFRICAN AMERICAN > 60
[2018-09-05 08:09] LABS: D DIMER < 200 ng/mlDDU (0-243); INR 1.14; PROTHROMBIN TIME 13.2 SECONDS (9.4-12.5)
[2018-09-05 08:11] LABS: TROPONIN I < 0.01 ng/mL
--- NOTE | 2018-09-05 09:03 | RAD ---
Date of service: 09/05/2018 HISTORY: chest pain COMPARISON: Portable chest 08/30/2018. FINDINGS: LUNGS: No active pulmonary disease. PLEURA: No significant pleural effusion identified, no pneumothorax apparent. CARDIOVASCULAR: No aortic atherosclerotic calcification present. Normal cardiac size. No pulmonary vascular congestion. OSSEOUS STRUCTURES: No significant abnormalities. VISUALIZED UPPER ABDOMEN: Normal. OTHER FINDINGS: None. IMPRESSION: No interval acute cardiopulmonary disease appreciated.
[2018-09-05 11:45] VITALS: BP 128/72; PULSE 73; RESP 19; O2SAT 99
--- NOTE | 2018-09-05 19:12 | CARD ---
APPROVED REPORT Date of service: 09/05/2018 EKG Measurement Heart [id number] <Conclusion> Normal sinus rhythm Normal ECG
== END 2018-09-05 11:45 | disposition home or self-care (01) ==
LOC: ED 06:14
DX: R07.9 Chest pain, unspecified (principal); I10 Essential (primary) hypertension; I47.1 Supraventricular tachycardia; E03.9 Hypothyroidism, unspecified; F41.9 Anxiety disorder, unspecified; Z87.891 Personal history of nicotine dependence

== ENCOUNTER 2018-09-09 03:04 | Observation (INO) | payer MEDICAID ==
[2018-09-09 03:05] VITALS: BMI 27.9
--- NOTE | 2018-09-09 03:36 | ED PDOC ---
Arrival/HPI - General Chief Complaint: Chest Pain Time Seen by Provider: 09/09/18 03:11 Historian: Patient - History of Present Illness Narrative History of Present Illness (Text): 09/09/18 03:32 63 year old male, whose past medical history includes hypertension, hypothyroidism, and SVT, presents to the Emergency department complaining of chest tightness. Patient states it's hard for him to breath. Patient denies any fever, chills, nausea, vomiting, diarrhea, urinary symptoms, back pain, neck pain, headache, dizziness, or any other complaints. Time/Duration: < week Symptom Onset: Gradual Symptom Course: Unchanged Activities at Onset: Light Context: Home Past Medical History - Provider Review Nursing Documentation Reviewed: Yes - Infectious Disease Hx of Infectious Diseases: None - Tetanus Immunization Tetanus Immunization: Unknown - Cardiac Hx Cardiac Disorders: Yes Hx Hypertension: Yes - Pulmonary Hx Respiratory Disorders: No - Neurological Hx Neurological Disorder: No - HEENT Hx HEENT Disorder: No - Renal Hx Renal Disorder: No - Endocrine/Metabolic Hx Endocrine Disorders: Yes Hx Hypothyroidism: Yes - Hematological/Oncological Hx Blood Disorders: No - Integumentary Hx Dermatological Disorder: No - Musculoskeletal/Rheumatological Hx Musculoskeletal Disorders: No - Gastrointestinal Hx Gastrointestinal Disorders: Yes Hx Gastritis: Yes Hx Gastroesophageal Reflux: Yes - Genitourinary/Gynecological Hx Genitourinary Disorders: Yes Hx Prostate Problems: Yes - Psychiatric Hx Psychophysiologic Disorder: Yes Hx Anxiety: Yes Hx Substance Use: No - Surgical History Hx Cataract Extraction: Yes Hx Cardiac Catheterization: Yes (about 5 yrs ago) - Anesthesia Hx Anesthesia: Yes Hx Anesthesia Reactions: No Hx Malignant Hyperthermia: No - Suicidal Assessment Feels Threatened In Home Enviroment: No Family/Social History - Physician Review Nursing Documentation Reviewed: Yes Family/Social History: Unknown Family HX Smoking Status: Former Smoker Hx Alcohol Use: No Hx Substance Use: No Hx Substance Use Treatment: No Allergies/Home Meds Allergies/Adverse Reactions: Allergies Penicillins Allergy (Verified 09/09/18 03:16) SWELLING Home Medications: Home Meds Medication Instructions Recorded Confirmed Tamsulosin [Flomax] 0.4 mg PO DAILY 09/25/14 09/09/18 Levothyroxine Sodium 100 mcg PO DAILY 06/08/17 09/09/18 Aspirin [Aspirin Chewable] 81 mg PO DAILY 09/05/18 09/09/18 Review of Systems - Physician Review All systems were reviewed & negative as marked: Yes - Review of Systems Constitutional: Normal Eyes: Normal ENT: Normal Respiratory: SOB Cardiovascular: Chest Pain Gastrointestinal: Normal. absent: Abdominal Pain, Diarrhea, Nausea, Vomiting Genitourinary Male: Normal. absent: Dysuria, Hematuria Musculoskeletal: Normal. absent: Back Pain, Neck Pain Skin: Normal. absent: Rash Neurological: Normal. absent: Headache, Dizziness Endocrine: Normal Hemo/Lymphatic: Normal Psychiatric: Normal Physical Exam - Physical Exam Narrative Physical Exam (Text): 09/09/18 03:35 Gen: VS reviewed, alert, well developed, well nourished, nontoxic, mild distress. ENT: normal pharynx. Eye: EOMI, PERRL. Neck: no JVD, supple, no adenopathy. CV: regular rate, regular rhythm, no rubs, no murmur, no gallops, S1, S2, pulses equal and strong. Pulm: no distress, clear to auscultation, no wheeze, no rhonchi, breath sounds equal, no rales. Abd: soft, nontender, no guarding, no rebound, no rigidity, normal bowel sounds. Ext: no edema. Skin: good color, no rash, no cyanosis. Psych: responds appropriately to questions, normal affect. Neuro: oriented x 3, CN2-12 intact grossly, motor intact, sensation intact. Vital Signs Reviewed: Yes Vital Signs Temp Pulse Resp BP Pulse Ox 09/09/18 03:17 98.7 F 66 19 138/82 100 Temperature: Afebrile Blood Pressure: Normal Pulse: Regular Respiratory Rate: Normal Appearance: Positive for: Well-Appearing, Non-Toxic, Comfortable Pain Distress: None Mental Status: Positive for: Alert and Oriented X 3 Medical Decision Making ED Course and Treatment: 09/09/18 03:35 Impression: 63 year old male presents to the Emergency department complaining of chest tightness and shortness of breath. Plan: -- Labs -- EKG -- Troponin -- Chest X-ray -- Aspirin -- Reassess and disposition Progress Notes: 09/09/18 06:18 admit deferred to hospitalist service by dr. atkins. emergency medical service coordinator aware of admit, awaiting call from day hospitalist for admission. patient to be admitted for recurrent chest pain, rule out ACS - EKG Interpretation EKG Interpretation (Text): 09/09/18 06:23 0303: sinus rhythm at 66 bpm, nml qrs, nml axis, rare pvc, no acute stt wabn Interpreted by ED Physician: Yes - Scribe Statement The provider has reviewed the documentation as recorded by the Scribe Demetra Conrad All medical record entries made by the Scribe were at my direction and personally dictated by me. I have reviewed the chart and agree that the record accurately reflects my personal performance of the history, physical exam, medical decision making, and the department course for this patient. I have also personally directed, reviewed, and agree with the discharge instructions and disposition. Disposition/Present on Arrival - Present on Arrival History of DVT/PE: No History of Uncontrolled Diabetes: No Urinary Catheter: No History of Decub. Ulcer: No History Surgical Site Infection Following: None - Disposition Forms: [employer] (German)
[2018-09-09 03:43] LABS: BASO # 0.02 K/mm3 (0.0-2.0); BASO % 0.4 % (0.0-3.0); EOS # 0.3 (0.0-0.7); EOS % 4.8 % (1.5-5.0); GRAN # 2.31 (1.4-6.5); GRAN % 42.2 % (50.0-68.0); HEMOGLOBIN 13.7 g/dL (14.0-18.0); LYMPH # 2.3 (1.2-3.4); LYMPH % 42.7 % (22.0-35.0); MEAN CORPUSCULAR HEMOGLOBIN 26.6 pg (25.0-35.0); MEAN CORPUSCULAR HGB CONC 32.8 g/dl (31.0-37.0); MEAN PLATELET VOLUME 9.2 fl (7.0-11.0); MONO # 0.5 (0.1-0.6); MONO % 9.9 % (1.0-6.0); RBC 5.16 10^6/uL (3.5-6.1); RED CELL DISTRIBUTION WIDTH 13.9 % (11.5-14.5); WHITE BLOOD COUNT 5.5 10^3/uL (4.5-11.0)
[2018-09-09 03:52] LABS: INR 1.07; PARTIAL THROMBOPLASTIN TIME 34.3 Seconds (25.1-36.5); PROTHROMBIN TIME 12.2 SECONDS (9.4-12.5)
[2018-09-09 04:04] LABS: TROPONIN I < 0.01 ng/mL
[2018-09-09 04:21] LABS: ALB/GLOB RATIO 1.4 (1.1-1.8); ALBUMIN 4.4 g/dL (3.0-4.8); ALT/SGPT 16 U/L (7-56); AST/SGOT 26 U/L (17-59); BLOOD UREA NITROGEN 18 mg/dL (7-21); CALCIUM 9.7 mg/dL (8.4-10.5); GFR NON-AFRICAN AMERICAN > 60
[2018-09-09 08:00] LABS: HDL CHOLESTEROL 45 mg/dL (29-60)
[2018-09-09 08:12] LABS: LDL CHOLESTEROL 97 mg/dL (0-129)
--- NOTE | 2018-09-09 08:26 | RAD ---
Date of service: 09/09/2018 HISTORY: chest pain COMPARISON: 09/05/2018 FINDINGS: LUNGS: No active pulmonary disease. PLEURA: No significant pleural effusion identified, no pneumothorax apparent. CARDIOVASCULAR: No aortic atherosclerotic calcification present. Normal cardiac size. No pulmonary vascular congestion. OSSEOUS STRUCTURES: No significant abnormalities. VISUALIZED UPPER ABDOMEN: Normal. OTHER FINDINGS: None. IMPRESSION: No active disease.
[2018-09-09] MEDS ORDERED: Naproxen 550 mg Tab PO PRN (08:29)
[2018-09-09] MEDS ORDERED: Morphine 2 mg/ml ISec IVP ONE (08:29)
[2018-09-09] MEDS ORDERED: Metoprolol Succinate 25 mg XL Tab PO SCH (10:00)
[2018-09-09] MEDS ORDERED: diltiaZEM 120 mg/24 Hours CD Cap PO SCH (10:00)
--- NOTE | 2018-09-09 12:43 | CP.PCM.HP ---
<Anastasia Lyon - Last Filed: 09/09/18 11:46> History of Present Illness - History of Present Illness History of Present Illness: Anastasia Lyon, PGY2, H&P for Dr Henry: CC: chest tightness 63 year old [place]ian male with PMH hyperthyroidism (medically treated in 1990), HTN, SVT and BPH, presents for chest tightness that started at 1 AM yesterday night. Patient describes it as achy, non-radiating, has associated nausea. Denies palpitations, vomiting, diaphoresis, [place] [facility] [place] complaint, patient had trouble getting a stress test due to insurance problems. However, he does have an outpatient stress test scheduled with Dr Russ on 09/21/2018. Patient denies fevers, chills, cough, abdominal pain, heartburn, sour taste in mouth, urinary complaints, leg swelling. In ED, initial EKG, trop negative. CXR neg for cardiomegaly. 12 point ROS obtained and negative, except as per HPI. PMD: [facility] ([address] [place] [address]) [employer] Driver: Consuelo Xiao (at [facility]) PMD: [facility] Pharm: Arturo [address] [place] [address]. PMH: as above PSH: b/l cataracts (2015, 2017) Meds: ASA 81 mg, Metoprolol succinate 25 mg PO daily, synthroid 100 mcg daily, Cardizem 120 mg PO daily, flomax 0.4 mg daily, amlodipine 10 mg (this med was last refilled in 05/2018) - verified with pharmacy Allergies: PCN (skin rash) FHx: Dad: BPH; Mom: from liver failure complications; sister: u/l renal agenesis SHx: former smoker (quit 30 yrs ago), quit in . Currently, patient is unemployed. 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 Present on Admission - Present on Admission Any Indicators Present on Admission: No History of DVT/PE: No History of Uncontrolled Diabetes: No Urinary Catheter: No Decubitus Ulcer Present: No Review of Systems - Review of Systems All systems: reviewed and no additional remarkable complaints except Review of Systems: as per HPI Past Patient History - Infectious Disease Hx of Infectious Diseases: None - Tetanus Immunizations Tetanus Immunization: Unknown - Past Medical History & Family History Past Medical History?: Yes - Past Social History Smoking Status: Former Smoker - CARDIAC Hx Cardiac Disorders: Yes Hx Hypertension: Yes - PULMONARY Hx Respiratory Disorders: No - NEUROLOGICAL Hx Neurological Disorder: No - HEENT Hx HEENT Problems: No - RENAL Hx Chronic Kidney Disease: No - ENDOCRINE/METABOLIC Hx Endocrine Disorders: Yes Hx Hypothyroidism: Yes - HEMATOLOGICAL/ONCOLOGICAL Hx Blood Disorders: No - INTEGUMENTARY Hx Dermatological Problems: No - MUSCULOSKELETAL/RHEUMATOLOGICAL Hx Musculoskeletal Disorders: No - GASTROINTESTINAL Hx Gastrointestinal Disorders: Yes Hx Gastritis: Yes Hx Gastroesophageal Reflux: Yes - GENITOURINARY/GYNECOLOGICAL Hx Genitourinary Disorders: Yes Hx Prostate Problems: Yes - PSYCHIATRIC Hx Psychophysiologic Disorder: Yes Hx Anxiety: Yes Hx Substance Use: No - SURGICAL HISTORY Hx Cataract Extraction: Yes Hx Cardiac Catheterization: Yes (about 5 yrs ago) - ANESTHESIA Hx Anesthesia: Yes Hx Anesthesia Reactions: No Hx Malignant Hyperthermia: No Meds Allergies/Adverse Reactions: Allergies Allergy/AdvReac Type Severity Reaction Status Date / Time Penicillins Allergy SWELLING Verified 09/09/18 03:16 Physical Exam - Constitutional Appears: Non-toxic, No Acute Distress - Head Exam Head Exam: ATRAUMATIC, NORMOCEPHALIC - Eye Exam Eye Exam: EOMI, PERRL. absent: Conjunctival injection, Nystagmus, Scleral icterus Pupil Exam: NORMAL ACCOMODATION, PERRL. absent: Fixed, Irregular, Miosis, Unequal - ENT Exam ENT Exam: Mucous Membranes Moist - Neck Exam Neck exam: Positive for: Full Rom - Respiratory Exam Respiratory Exam: Clear to Auscultation Bilateral, NORMAL BREATHING PATTERN. absent: Accessory Muscle Use, Prolonged Expiratory Phase, Rhonchi, Wheezes, Respiratory Distress, Stridor - Cardiovascular Exam Cardiovascular Exam: RRR, +S1, +S2. absent: Systolic Murmur Additional comments: + holter monitor in place. + reproducible left sided chest pain upon palpation - GI/Abdominal Exam GI & Abdominal Exam: Normal Bowel Sounds, Soft. absent: Distended, Firm, Guarding, Mass, Rebound, Rigid, Tenderness - Extremities Exam Extremities exam: Positive for: normal inspection. Negative for: calf tende rness, pedal edema - Back Exam Back exam: NORMAL INSPECTION. absent: CVA tenderness (L), CVA tenderness (R) - Neurological Exam Neurological exam: Alert, Oriented x3 - Psychiatric Exam Psychiatric exam: Normal Affect, Normal Mood - Skin Skin Exam: Dry, Normal Color, Warm Results - Vital Signs Recent Vital Signs: Last Vital Signs Temp 98.7 F 09/09/18 03:17 Pulse 66 09/09/18 10:47 Resp 15 09/09/18 08:58 BP 128/83 09/09/18 10:47 Pulse Ox 100 09/09/18 08:58 - Labs Result Diagrams: 09/09/18 03:13 09/09/18 03:13 Labs: Laboratory Results - last 24 hr 09/09/18 09/09/18 09/09/18 03:13 03:13 03:13 WBC 5.5 RBC 5.16 Hgb 13.7 L Hct 41.8 L MCV 81.0 MCH 26.6 MCHC 32.8 RDW 13.9 Plt Count 310 MPV 9.2 Gran % 42.2 L Lymph % (Auto) 42.[address] [facility] % (Auto) 9.9 H Eos % (Auto) 4.8 Baso % (Auto) 0.4 Gran # 2.31 Lymph # (Auto) 2.3 [facility] # (Auto) 0.5 Eos # (Auto) 0.3 Baso # (Auto) 0.02 PT 12.2 INR 1.07 APTT 34.3 Sodium 141 Potassium 4.5 Chloride 104 Carbon Dioxide 29 Anion Gap 14 BUN 18 Creatinine 1.1 Est GFR ( Amer) > 60 Est GFR (Non-Af Amer) > 60 Random Glucose 99 Calcium 9.7 Total Bilirubin 0.5 AST 26 ALT 16 Alkaline Phosphatase 84 Troponin I < 0.01 Total Protein 7.6 Albumin 4.4 Globulin 3.2 Albumin/Globulin Ratio 1.4 Triglycerides Cholesterol LDL Cholesterol Direct HDL Cholesterol TSH 3rd Generation 09/09/18 09/09/18 03:15 03:15 WBC RBC Hgb Hct MCV MCH MCHC RDW Plt Count MPV Gran % Lymph % (Auto) [facility] % (Auto) Eos % (Auto) Baso % (Auto) Gran # Lymph # (Auto) [facility] # (Auto) Eos # (Auto) Baso # (Auto) PT INR APTT Sodium Potassium Chloride Carbon Dioxide Anion Gap BUN Creatinine Est GFR ( Amer) Est GFR (Non-Af Amer) Random Glucose Calcium Total Bilirubin AST ALT Alkaline Phosphatase Troponin I Total Protein Albumin Globulin Albumin/Globulin Ratio Triglycerides 224 H Cholesterol 177 LDL Cholesterol Direct 97 HDL Cholesterol 45 TSH 3rd Generation 1.33 Assessment & Plan - Assessment and Plan (Free Text) Assessment: 63 year old male with PMH hyperthyroidism (medically treated in 1990), HTN, SVT, and BPH, admitted for chest tightness: Chest tightness, r/o ACS: likely musculoskeletal - Initial EKG and trop neg. EKG sinus rhythm at 66 bpm, nml qrs, nml axis, rare pvc, no acute st-t wave abnormalities. - F/u serial trops - given ASA in ED - tsh, lipid panel, A1C - continue with home meds ASA 81 mg, metoprolol 25 bid, and cardizem 120 mg - started lipitor - Cardiology Dr Russ consulted. Patient had appt for stress test with him on 09/21/18. Will await recs. - Naproxen bid - Called [facility] cardiology service at [phone] regarding holter monitor, awaiting call back. - monitor on tele History of HTN, SVT: - continue with home metoprolol and cardizem - monitor History of hypothyroidism: - TSH 1.33 - c/w home synthroid History of BPH: - c/w home flomax PPX: hep sq and pepcid Heart healthy diet Case seen and discussed with Dr Henry. <Dillon Henry - Last Filed: 09/09/18 16:53> Results - Vital Signs Recent Vital Signs: Last Vital Signs Temp 97.1 F L 09/09/18 12:00 Pulse 60 09/09/18 12:00 Resp 21 09/09/18 12:00 BP 131/85 09/09/18 12:00 Pulse Ox 100 09/09/18 08:58 - Labs Result Diagrams: 09/09/18 03:13 09/09/18 03:13 Labs: Laboratory Results - last 24 hr 09/09/18 09/09/18 09/09/18 03:13 03:13 03:13 WBC 5.5 RBC 5.16 Hgb 13.7 L Hct 41.8 L MCV 81.0 MCH 26.6 MCHC 32.8 RDW 13.9 Plt Count 310 MPV 9.2 Gran % 42.2 L Lymph % (Auto) 42.[address] [facility] % (Auto) 9.9 H Eos % (Auto) 4.8 Baso % (Auto) 0.4 Gran # 2.31 Lymph # (Auto) 2.3 [facility] # (Auto) 0.5 Eos # (Auto) 0.3 Baso # (Auto) 0.02 PT 12.2 INR 1.07 APTT 34.3 Sodium 141 Potassium 4.5 Chloride 104 Carbon Dioxide 29 Anion Gap 14 BUN 18 Creatinine 1.1 Est GFR ( Amer) > 60 Est GFR (Non-Af Amer) > 60 Random Glucose 99 Calcium 9.7 Total Bilirubin 0.5 AST 26 ALT 16 Alkaline Phosphatase 84 Troponin I < 0.01 Total Protein 7.6 Albumin 4.4 Globulin 3.2 Albumin/Globulin Ratio 1.4 Triglycerides Cholesterol LDL Cholesterol Direct HDL Cholesterol TSH 3rd Generation 09/09/18 09/09/18 09/09/18 03:15 03:15 12:05 WBC RBC Hgb Hct MCV MCH MCHC RDW Plt Count MPV Gran % Lymph % (Auto) [facility] % (Auto) Eos % (Auto) Baso % (Auto) Gran # Lymph # (Auto) [facility] # (Auto) Eos # (Auto) Baso # (Auto) PT INR APTT Sodium Potassium Chloride Carbon Dioxide Anion Gap BUN Creatinine Est GFR ( Amer) Est GFR (Non-Af Amer) Random Glucose Calcium Total Bilirubin AST ALT Alkaline Phosphatase Troponin I < 0.01 Total Protein Albumin Globulin Albumin/Globulin Ratio Triglycerides 224 H Cholesterol 177 LDL Cholesterol Direct 97 HDL Cholesterol 45 TSH 3rd Generation 1.33 Attending/Attestation - Attestation I have personally seen and examined this patient.: Yes I have fully participated in the care of the patient.: Yes I have reviewed all pertinent clinical information: Yes Notes (Text): 09/09/18 16:52 Attending note; Patient seen and examined with resident in ER. Patient is alert and awake. Patient is a 63-year-old male with a history of hypertension, SVT is admitted for left-sided chest pain. EKG no acute ST-T changes. Cardiac enzymes negative. Will order cardiac enzymes 3. Cardiology evaluation requested. Possible musculoskeletal pain; started on Naprosyn. History of SVT; continue Cardizem and metoprolol. Hypothyroidism; continue Synthroid. Upon discharge the patient will follow-up with PMD .
--- NOTE | 2018-09-09 15:34 | CARD ---
APPROVED REPORT Date of service: 09/09/2018 EKG Measurement Heart [id number] <Conclusion> Sinus rhythm with occasional premature ventricular complexes Otherwise normal ECG
[2018-09-09] MEDS: Levothyroxine 100 MCG TAB PO SCH (15:51)
--- NOTE | 2018-09-09 16:21 | CON ---
DATE OF CONSULTATION: 09/09/2018 REASON FOR CONSULTATION: Uncontrolled hypertension, palpitations, and history of SVT. HISTORY OF PRESENT ILLNESS: The patient is a 63-year-old [place] male who has a history of hypertension, chronic obstructive lung disease. He is a former smoker. He was treated for paroxysmal reentrant SVT. He presents because, what he describes as, he woke up from bed with palpitations and chest tightness. He activated EMS. By the time EMS arrived, there was no palpitation or chest discomfort, but the patient was found to have significantly high blood pressure. The patient is unaware of any history of coronary artery disease. He underwent cardiac catheterization some 5 years ago at [facility] and was told it was normal. SOCIAL HISTORY: Former smoker. MEDICATIONS: Aspirin 81 g once a day, Cardizem CD 120 mg once a day, Synthroid 100 mcg once a day, Toprol XL 25 g once a day. REVIEW OF SYSTEMS: No nausea or vomiting. No dizziness or syncope. PHYSICAL EXAMINATION: GENERAL: The patient is a middle-aged male who does not appear to be in any distress. VITAL SIGNS: Blood pressure currently 128/83, heart rate 66, temperature 98.7, respirations 15. HEENT: Normocephalic. NECK: No JVD. CHEST: Clear. HEART: S1 and S2 regular. ABDOMEN: Soft. EXTREMITIES: No edema. LABORATORY DATA: SMA-7 is entirely within normal limits. One set of troponin is negative. Triglycerides 224. Rest of lipid profile is within normal limits. TSH level is 1.33. PT/PTT and INR are within normal limits. Hemoglobin and hematocrit 15.7 and 41.8, white count and platelet count are within normal limits. Recent CT angio last month revealed unremarkable CT pulmonary angiogram. EKG revealed sinus rhythm with occasional PVCs, heart rate 66. Echocardiographic study performed some 2 weeks ago revealed borderline concentric LVH with normal systolic function and mild mitral insufficiency. ASSESSMENT: 1. History of paroxysmal reentrant supraventricular tachycardia. 2. Chronic obstructive lung disease. 3. Atypical chest pain. 4. Hypothyroidism. RECOMMENDATIONS: Continue aspirin 81 mg once a day, Cardizem CD 120 mg once a day, Synthroid 100 mcg once a day, Toprol XL 25 mg once a day. Eliseo Rainey MD [facility] # [id number]
[2018-09-10 06:42] VITALS: O2SAT 97
[2018-09-10 08:10] LABS: BASO # 0.03 K/mm3 (0.0-2.0); BASO % 0.6 % (0.0-3.0); EOS # 0.2 (0.0-0.7); EOS % 4.4 % (1.5-5.0); GRAN # 2.35 (1.4-6.5); GRAN % 46.6 % (50.0-68.0); LYMPH % 40.5 % (22.0-35.0); MEAN CELL VOLUME 81.1 fl (80.0-105.0); MEAN CORPUSCULAR HEMOGLOBIN 25.6 pg (25.0-35.0); MEAN CORPUSCULAR HGB CONC 31.6 g/dl (31.0-37.0); MEAN PLATELET VOLUME 9.3 fl (7.0-11.0); MONO # 0.4 (0.1-0.6); MONO % 7.9 % (1.0-6.0); RBC 5.46 10^6/uL (3.5-6.1); RED CELL DISTRIBUTION WIDTH 14.1 % (11.5-14.5)
[2018-09-10 08:56] LABS: ALB/GLOB RATIO 1.3 (1.1-1.8); ALT/SGPT 23 U/L (7-56); AST/SGOT 24 U/L (17-59); BLOOD UREA NITROGEN 16 mg/dL (7-21); CALCIUM 9.2 mg/dL (8.4-10.5); GFR NON-AFRICAN AMERICAN > 60
[2018-09-10] MEDS: Levothyroxine 100 MCG TAB PO SCH (10:00)
[2018-09-10] MEDS ORDERED: diltiaZEM 180 mg/24 Hours CD Cap PO SCH (10:00)
[2018-09-10 12:40] VITALS: BP 132/92; PULSE 78; RESP 16; TEMP 98.3
--- NOTE | 2018-09-10 16:14 | CP.PCM.DIS ---
Provider - Provider Date of Admission: 09/09/18 06:17 Attending physician: Dillon Henry MD Time Spent in preparation of Discharge (in minutes): 45 Diagnosis - Discharge Diagnosis (1) Chest pain Status: Acute Hospital Course - Lab Results Lab Results: Most Recent Lab Values WBC 5.0 10^3/uL (4.5-11.0) 09/10/18 07:30 RBC 5.46 10^6/uL (3.5-6.1) 09/10/18 07:30 Hgb 14.0 g/dL (14.0-18.0) 09/10/18 07:30 Hct 44.3 % (42.0-52.0) 09/10/18 07:30 MCV 81.1 fl (80.0-105.0) 09/10/18 07:30 MCH 25.6 pg (25.0-35.0) 09/10/18 07:30 MCHC 31.6 g/dl (31.0-37.0) 09/10/18 07:30 RDW 14.1 % (11.5-14.5) 09/10/18 07:30 Plt Count 273 10^3/uL (120.0-450.0) 09/10/18 07:30 MPV 9.3 fl (7.0-11.0) 09/10/18 07:30 Gran % 46.6 % (50.0-68.0) L 09/10/18 07:30 Lymph % (Auto) 40.5 % (22.0-35.0) H 09/10/18 07:30 Millard % (Auto) 7.9 % (1.0-6.0) H 09/10/18 07:30 Eos % (Auto) 4.4 % (1.5-5.0) 09/10/18 07:30 Baso % (Auto) 0.6 % (0.0-3.0) 09/10/18 07:30 Gran # 2.35 (1.4-6.5) 09/10/18 07:30 Lymph # (Auto) 2.0 (1.2-3.4) 09/10/18 07:30 Millard # (Auto) 0.4 (0.1-0.6) 09/10/18 07:30 Eos # (Auto) 0.2 (0.0-0.7) 09/10/18 07:30 Baso # (Auto) 0.03 K/mm3 (0.0-2.0) 09/10/18 07:30 PT 12.2 SECONDS (9.4-12.5) 09/09/18 03:13 INR 1.07 09/09/18 03:13 APTT 34.3 Seconds (25.1-36.5) 09/09/18 03:13 Sodium 140 mmol/L (132-148) 09/10/18 07:30 Potassium 4.2 mmol/L (3.6-5.0) 09/10/18 07:30 Chloride 107 mmol/L (98-107) 09/10/18 07:30 Carbon Dioxide 26 mmol/L (21-33) 09/10/18 07:30 Anion Gap 11 (10-20) 09/10/18 07:30 BUN 16 mg/dL (7-21) 09/10/18 07:30 Creatinine 1.1 mg/dl (0.8-1.5) 09/10/18 07:30 Est GFR ( Amer) > 60 09/10/18 07:30 Est GFR (Non-Af Amer) > 60 09/10/18 07:30 Random Glucose 92 mg/dL (70-110) 09/10/18 07:30 Hemoglobin A1c 5.5 % (4.2-6.5) 09/09/18 03:15 Calcium 9.2 mg/dL (8.4-10.5) 09/10/18 07:30 Phosphorus 3.5 mg/dL (2.5-4.5) 09/10/18 07:30 Magnesium 2.1 mg/dL (1.7-2.2) 09/10/18 07:30 Total Bilirubin 0.7 mg/dL (0.2-1.3) 09/10/18 07:30 AST 24 U/L (17-59) 09/10/18 07:30 ALT 23 U/L (7-56) 09/10/18 07:30 Alkaline Phosphatase 80 U/L (38-126) 09/10/18 07:30 Troponin I < 0.01 ng/mL 09/09/18 18:03 Total Protein 7.1 g/dL (5.8-8.3) 09/10/18 07:30 Albumin 4.0 g/dL (3.0-4.8) 09/10/18 07:30 Globulin 3.1 gm/dL 09/10/18 07:30 Albumin/Globulin Ratio 1.3 (1.1-1.8) 09/10/18 07:30 Triglycerides 224 mg/dL (35-160) H 09/09/18 03:15 Cholesterol 177 mg/dL (130-200) 09/09/18 03:15 LDL Cholesterol Direct 97 mg/dL (0-129) 09/09/18 03:15 HDL Cholesterol 45 mg/dL (29-60) 09/09/18 03:15 TSH 3rd Generation 1.33 mIU/mL (0.46-4.68) 09/09/18 03:15 - Hospital Course Hospital Course: Upon Admission: 63 year old Vietnamese male with PMH hyperthyroidism (medically treated in 1990), HTN, SVT and BPH, presents for chest tightness that started at 1 AM yesterday night. Patient describes it as achy, non-radiating, has associated nausea. Denies palpitations, vomiting, diaphoresis, Patient has been to [facility] for many visits regarding same complaint, patient had trouble getting a stress test due to insurance problems. However, he does have an outpatient stress test scheduled with Dr Russ on 09/21/2018. Patient denies fevers, chills, cough, abdominal pain, heartburn, sour taste in mouth, urinary complaints, leg swelling. In ED, initial EKG, trop negative. CXR neg for cardiomegaly. Hospital Course: Pt was being worked up to r/o [place]. Pt states that he no longer has any chest pain. Trops were <.01 x 3 and EKG was NSR with occasional PVCs otherwise normal. Cardiology cleared the pt for d/c and stated that the pt should continue ASA 81mg/day. Cardiology increased the pts cardizem to 180mg and d/cyndy his metoprolol. Pt will have an outpt stress test with Dr. Russ on 09/21. Pt was encouraged to return to the ED if the pt has any new symptoms or concerns. Pt was informed about outpt stress test follow up, and explicit instructions to follow up with his PMD Victorino Lei and with his residential nurse Dr. Gill at [facility]. Pt states understanding of his instructions and with the treatment plan for discharge. Upon D/c: Pt was explicity told to: Follow up with Dr. Teto Russ on 09/21 for your stress test. Follow up with your Primary Care Doctor Victorino Lei within 3-4 days of discharge. Follow up with your residential nurse Dr. Gill at [facility]. Please note that we discontinued your lopressor (metoprolol) medication and increased your cardizem pill so please follow the new prescription instructions. If you have any new, worsening or concerning symptoms please return to the Emergency Department. Discharge Exam - Head Exam Head Exam: ATRAUMATIC, NORMAL INSPECTION, NORMOCEPHALIC - Eye Exam Eye Exam: EOMI, Normal appearance, PERRL Pupil Exam: NORMAL ACCOMODATION - Respiratory Exam Respiratory Exam: NORMAL BREATHING PATTERN, UNREMARKABLE. absent: Accessory Muscle Use, Decreased Breath Sounds, Rales, Rhonchi, Wheezes, Respiratory Distress - Cardiovascular Exam Cardiovascular Exam: RRR, +S1, +S2. absent: Gallop, Rubs - GI/Abdominal Exam GI & Abdominal Exam: Normal Bowel Sounds, Soft, Unremarkable. absent: Tenderness - Extremities Exam Extremities exam: normal capillary refill, normal inspection, pedal pulses present - Back Exam Back exam: NORMAL INSPECTION. absent: CVA tenderness (L), CVA tenderness (R) - Neurological Exam Neurological exam: Alert, Oriented x3 - Psychiatric Exam Psychiatric exam: Normal Affect, Normal Mood - Skin Skin Exam: Dry, Intact, Normal Color Discharge Plan - Discharge Medications Prescriptions: diltiaZEM CD [Cardizem CD] 180 mg PO DAILY #30 cap - Follow Up Plan Condition: GOOD Disposition: HOME/ ROUTINE Instructions: Chest Pain (DC) Additional Instructions: - Please follow up with Dr. Teto Russ on 09/21 for your stress test. - Please follow up with your Primary Care Doctor Victorino Lei within 3-4 days of discharge. - Please follow up with your residential nurse Dr. Jairo Brown at [facility]. - Please note that we discontinued your lopressor (metoprolol) medication and increased your cardizem pill so please follow the new prescription instructions. - If you have any new, worsening or concerning symptoms please return to the Emergency Department. Referrals: Jairo Brown DO [Doctor Osteopathy] - Mandy Gleason DO [Family Provider] - Teto Russ MD [Staff Provider] -
--- NOTE | 2018-09-11 08:48 | CON ---
DATE: 09/10/2018 REASON FOR CONSULTATION: Uncontrolled hypertension, palpitation, SVT. REASON FOR DICTATION: Seeing for Dr. Rainey, covering Dr. Rainey. Patient denies any chest pain, shortness of breath, any palpitation. OBJECTIVE: GENERAL: Not in apparent distress. VITAL SIGNS: Temperature afebrile, heart rate 52, blood pressure 130/79. HEENT: PERRLA. Extraocular muscles intact. NECK: Supple. No carotid bruit. No thyromegaly. CHEST: Clear to auscultation. HEART: S1 and S2 regular. ABDOMEN: Soft. EXTREMITIES: Clubbing and cyanosis negative. LABORATORY DATA: Blood workup: WBC 5, hemoglobin 14, hematocrit 44.3, platelet count 273. Chemistry shows sodium 140, potassium 4.0, chloride 103, carbon dioxide 26, anion gap of 11, BUN 16, creatinine 1.1. Troponin remains negative at 0.01. IMPRESSION: A 63-year-old [place] male with history of hypertension, chronic obstructive lung disease, active smoker, history of paroxysmal atrial fibrillation, history of cardiac catheterization 5 years ago at [facility] by Dr. Russ, told negative. Rescheduled for a stress test on . History of chronic obstructive pulmonary disease, hypothyroidism. RECOMMENDATION: Patient states that he cannot tolerate beta rose, feels very weak, so we will increase Cardizem to 180 mg from today and discontinue beta rose. If he remains stable, okay to be discharged, follow up with Dr. Russ for a stress test and outside of the cardiology, . Discussed with the patient. Thank you Dr. Henry for providing us the opportunity in taking care of patient, Jennifer Hammonds. Denton Portillo MD
== END 2018-09-10 15:02 | disposition home or self-care (01) ==
LOC: ED 03:04 → ERH 06:17 → 2RNO 10:55
PROVIDERS: ADMIT Internal Medicine; ATTEND Internal Medicine
DX: R07.89 Other chest pain (principal); E03.9 Hypothyroidism, unspecified; I10 Essential (primary) hypertension; I47.1 Supraventricular tachycardia; I49.3 Ventricular premature depolarization; J44.9 Chronic obstructive pulmonary disease, unspecified; K21.9 Gastro-esophageal reflux disease without esophagitis; N40.0 Benign prostatic hyperplasia without lower urinary tract symptoms; Z79.82 Long term (current) use of aspirin; Z87.891 Personal history of nicotine dependence
CPT/HCPCS: 36415; 71045; 80053; 80061; 83036; 83735; 84100; 84443; 84484; 85025; 85610; 85730; 93005; 99283; G0378; J1644

== ENCOUNTER 2018-09-11 01:21 | Observation (INO) | payer MEDICAID ==
[2018-09-11 01:22] VITALS: BMI 27.9
--- NOTE | 2018-09-11 01:54 | ED PDOC ---
Arrival/HPI - General Chief Complaint: Chest Pain Time Seen by Provider: 09/11/18 01:40 Historian: Patient - History of Present Illness Narrative History of Present Illness (Text): 09/11/18 01:45 Jennifer Hammonds is a 62 year old male, whose past medical history includes BPH, hypertension, SVT, and hypothyroidism, who presents to the Emergency department complaining of chest pain. Patient was recently discharged from the hospital yesterday after he was cleared for discharge/outpatient follow-up by cardiology, but states chest pain returned this evening while at home with associated palpitations. Patient reports he took Nitroglycerin at home prior to arrival with improvement, but pain returned, and was given Aspirin en route to the hospital by EMS. Patient notes he was placed on Cardizem and his Metoprolol was discontinued. Patient denies any fever, chills, shortness of breath, nausea, vomiting, neck pain, headache, dizziness, or any other complaints. Symptom Onset: Gradual Symptom Course: Unchanged Activities at Onset: Light Context: Home Past Medical History - Provider Review Nursing Documentation Reviewed: Yes - Infectious Disease Hx of Infectious Diseases: None - Tetanus Immunization Tetanus Immunization: Unknown - Cardiac Hx Cardiac Disorders: Yes Hx Hypertension: Yes - Pulmonary Hx Respiratory Disorders: No - Neurological Hx Neurological Disorder: No - HEENT Hx HEENT Disorder: No - Renal Hx Renal Disorder: No - Endocrine/Metabolic Hx Endocrine Disorders: Yes Hx Hypothyroidism: Yes - Hematological/Oncological Hx Blood Disorders: No - Integumentary Hx Dermatological Disorder: No - Musculoskeletal/Rheumatological Hx Musculoskeletal Disorders: No - Gastrointestinal Hx Gastrointestinal Disorders: Yes Hx Gastritis: Yes Hx Gastroesophageal Reflux: Yes - Genitourinary/Gynecological Hx Genitourinary Disorders: Yes Hx Prostate Problems: Yes - Psychiatric Hx Psychophysiologic Disorder: Yes Hx Anxiety: Yes Hx Substance Use: No - Surgical History Hx Cataract Extraction: Yes Hx Cardiac Catheterization: Yes (about 5 yrs ago) - Anesthesia Hx Anesthesia: Yes Hx Anesthesia Reactions: No Hx Malignant Hyperthermia: No - Suicidal Assessment Feels Threatened In Home Enviroment: No Family/Social History - Physician Review Nursing Documentation Reviewed: Yes Family/Social History: Unknown Family HX Smoking Status: Former Smoker Hx Alcohol Use: No Hx Substance Use: No Hx Substance Use Treatment: No Allergies/Home Meds Allergies/Adverse Reactions: Allergies Penicillins Allergy (Verified 09/11/18 01:38) SWELLING Home Medications: Home Meds Medication Instructions Recorded Confirmed Tamsulosin [Flomax] 0.4 mg PO DAILY 09/25/14 09/11/18 Levothyroxine Sodium 100 mcg PO DAILY 06/08/17 09/11/18 Aspirin [Aspirin Chewable] 81 mg PO DAILY 09/05/18 09/11/18 Review of Systems - Physician Review All systems were reviewed & negative as marked: Yes - Review of Systems Constitutional: Normal. absent: Fevers Eyes: Normal ENT: Normal Respiratory: Normal. absent: SOB, Cough Cardiovascular: Chest Pain, Palpitations Gastrointestinal: Normal. absent: Abdominal Pain, Diarrhea, Nausea, Vomiting Genitourinary Male: Normal. absent: Dysuria, Frequency, Hematuria, Urinary Output Changes Musculoskeletal: Normal. absent: Back Pain, Neck Pain Skin: Normal. absent: Rash Neurological: Normal. absent: Headache, Dizziness Endocrine: Normal Hemo/Lymphatic: Normal Psychiatric: Normal Physical Exam Vital Signs Reviewed: Yes Vital Signs Temp Pulse Resp BP Pulse Ox 09/11/18 01:41 98.4 F 68 16 128/71 100 Temperature: Afebrile Blood Pressure: Normal Pulse: Regular Respiratory Rate: Normal Appearance: Positive for: Well-Appearing, Non-Toxic, Comfortable Pain Distress: None Mental Status: Positive for: Alert and Oriented X 3 - Systems Exam Head: Present: Atraumatic, Normocephalic Pupils: Present: PERRL Extroacular Muscles: Present: EOMI Conjunctiva: Present: Normal Mouth: Present: Moist Mucous Membranes Neck: Present: Normal Range of Motion Respiratory/Chest: Present: Clear to Auscultation, Good Air Exchange. No: Respiratory Distress, Accessory Muscle Use Cardiovascular: Present: Regular Rate and Rhythm, Normal S1, S2. No: Murmurs Abdomen: No: Tenderness, Distention, Peritoneal Signs Back: Present: Normal Inspection Upper Extremity: Present: Normal Inspection. No: Cyanosis, Edema Lower Extremity: Present: Normal Inspection. No: Edema Neurological: Present: GCS=15, CN II-XII Intact, Speech Normal Skin: Present: Warm, Dry, Normal Color. No: Rashes Psychiatric: Present: Alert, Oriented x 3, Normal Insight, Normal Concentration Medical Decision Making ED Course and Treatment: 09/11/18 01:45 Impression: 63 year old male complaining of chest pain and palpitations tonight. Plan: -- EKG -- Chest X-ray -- Labs, cardiac enzymes -- Reassess and disposition Prior Visits: Notes and results from previous visits were reviewed. On 09/09/2018, pt was seen in the Emergency department for chest tightness. Pt was admitted to the hospital, seen by cardiology, and discharged home. Progress Notes: Reviewed EKG, NSR at [address]-segment elevations or depressions, no T-wave inversions, normal intervals. 09/11/18 03:53 Chest X-ray reviewed, shows no acute processes. 09/11/18 03:55 Case discussed with medical radiation therapist operations coordinator, who is aware and agrees with plan. 09/11/18 03:[address] Luna Negrete, who is aware and agrees with plan. Accepts pt in to hospitalist service. Pt will go to remote telemetry observation for chest pain. - RAD Interpretation Radiology Orders: 09/11/18 01:42 CHEST PORTABLE [RAD] Stat Venereal Disease Investigator: ED Physician - EKG Interpretation Interpreted by ED Physician: Yes Type: 12 lead EKG - Scribe Statement The provider has reviewed the documentation as recorded by the Johannibsummer Sal Provider Scribe Attestation: All medical record entries made by the Scribe were at my direction and personally dictated by me. I have reviewed the chart and agree that the record accurately reflects my personal performance of the history, physical exam, medical decision making, and the department course for this patient. I have also personally directed, reviewed, and agree with the discharge instructions and disposition. Disposition/Present on Arrival - Present on Arrival Any Indicators Present on Arrival: No History of DVT/PE: No History of Uncontrolled Diabetes: No Urinary Catheter: No History of Decub. Ulcer: No History Surgical Site Infection Following: None - Disposition Have Diagnosis and Disposition been Completed?: Yes Diagnosis: Chest pain Disposition: HOSPITALIZED Disposition Time: 04:01 Patient Plan: Observation Condition: STABLE Discharge Instructions (ExitCare): Chest Pain (ED) Referrals: Mandy Gleason DO [Primary Care Provider] - Follow up with primary Forms: Rosalind (Andorran)
[2018-09-11 02:08] LABS: HEMOGLOBIN 13.5 g/dL (14.0-18.0); MEAN CELL VOLUME 80.7 fl (80.0-105.0); MEAN CORPUSCULAR HEMOGLOBIN 26.3 pg (25.0-35.0); MEAN CORPUSCULAR HGB CONC 32.5 g/dl (31.0-37.0); MEAN PLATELET VOLUME 9.3 fl (7.0-11.0); RBC 5.14 10^6/uL (3.5-6.1); RED CELL DISTRIBUTION WIDTH 13.8 % (11.5-14.5); WHITE BLOOD COUNT 5.8 10^3/uL (4.5-11.0)
[2018-09-11 02:12] LABS: INR 1.08; PARTIAL THROMBOPLASTIN TIME 31.4 Seconds (25.1-36.5); PROTHROMBIN TIME 12.3 SECONDS (9.4-12.5)
[2018-09-11 02:14] LABS: ALB/GLOB RATIO 1.4 (1.1-1.8); ALBUMIN 4.1 g/dL (3.0-4.8); ALT/SGPT 24 U/L (7-56); AST/SGOT 27 U/L (17-59); BLOOD UREA NITROGEN 16 mg/dL (7-21); CALCIUM 8.9 mg/dL (8.4-10.5); GFR NON-AFRICAN AMERICAN > 60
[2018-09-11 02:25] LABS: TROPONIN I < 0.01 ng/mL
--- NOTE | 2018-09-11 04:30 | CP.PCM.HP ---
History of Present Illness - History of Present Illness History of Present Illness: Stephane Corona PGY1 History and Physical for Dr Aneudy Negrete Pt is a 62yo male with a PMH of BPH, HTN, hypothyroid, and SVT who presents to [facility] ED complaining of palpitations and chest pain which started while he was sleeping at about midnight last night. Patient was recently discharged from the hospital yesterday after he was cleared for discharge/outpatient follow-up by cardiology, but states chest pain returned this evening while at home with associated palpitations. Pt states he was sleeping when he began to feel palpitations and 8/10 chest pain which was sharp/ pressure and radiated to his jaw and back, but not down his arms. Pt denies SOB or any other symptoms. Patient reports he took Nitroglycerin at home prior to arrival with improvement and was given Aspirin en route to the hospital by EMS. Patient notes he was placed on Cardizem and his Metoprolol was discontinued during his last hospital admission. A 12 point ROS was obtained and added to the HPI where appropriate. PMH: BPH, hypertension, SVT, and hypothyroidism PSH: b/l cataracts (2015, 2016) FH: Father: BPH; Mother: from liver failure complications; sister: u/l renal agenesis SHx: former smoker (quit 30 yrs ago), quit in . Meds: ASA 81 mg, synthroid 100 mcg daily, Cardizem 120 mg PO daily, flomax 0.4 mg daily Allergies: PCN (skin rash) PMD: [facility] ([address] [place] [address]) Die Cast Die Maker: Consuelo Xiao (at [facility]) PMD: [facility] Pharm: Arturo [address] [place] [address]. Present on Admission - Present on Admission Any Indicators Present on Admission: No Review of Systems - Review of Systems Review of Systems: a 12 point ROS was obtained and added to the HPI where appropriate Past Patient History - Infectious Disease Hx of Infectious Diseases: None - Tetanus Immunizations Tetanus Immunization: Unknown - Past Medical History & Family History Past Medical History?: Yes - Past Social History Smoking Status: Former Smoker - CARDIAC Hx Cardiac Disorders: Yes Hx Hypertension: Yes - PULMONARY Hx Respiratory Disorders: No - NEUROLOGICAL Hx Neurological Disorder: No - HEENT Hx HEENT Problems: No - RENAL Hx Chronic Kidney Disease: No - ENDOCRINE/METABOLIC Hx Endocrine Disorders: Yes Hx Hypothyroidism: Yes - HEMATOLOGICAL/ONCOLOGICAL Hx Blood Disorders: No - INTEGUMENTARY Hx Dermatological Problems: No - MUSCULOSKELETAL/RHEUMATOLOGICAL Hx Musculoskeletal Disorders: No - GASTROINTESTINAL Hx Gastrointestinal Disorders: Yes Hx Gastritis: Yes Hx Gastroesophageal Reflux: Yes - GENITOURINARY/GYNECOLOGICAL Hx Genitourinary Disorders: Yes Hx Prostate Problems: Yes - PSYCHIATRIC Hx Psychophysiologic Disorder: Yes Hx Anxiety: Yes Hx Substance Use: No - SURGICAL HISTORY Hx Cataract Extraction: Yes Hx Cardiac Catheterization: Yes (about 5 yrs ago) - ANESTHESIA Hx Anesthesia: Yes Hx Anesthesia Reactions: No Hx Malignant Hyperthermia: No Meds Allergies/Adverse Reactions: Allergies Allergy/AdvReac Type Severity Reaction Status Date / Time Penicillins Allergy SWELLING Verified 09/11/18 01:38 Physical Exam - Head Exam Head Exam: ATRAUMATIC, NORMAL INSPECTION, NORMOCEPHALIC - Eye Exam Eye Exam: EOMI - ENT Exam ENT Exam: Mucous Membranes Moist - Respiratory Exam Respiratory Exam: Clear to Auscultation Bilateral. absent: Accessory Muscle Use, Wheezes, Respiratory Distress - Cardiovascular Exam Cardiovascular Exam: RRR, +S1, +S2. absent: Diastolic murmur, Systolic Murmur Additional comments: chest pain is reproducible to palpation - GI/Abdominal Exam GI & Abdominal Exam: Normal Bowel Sounds, Soft. absent: Tenderness - Extremities Exam Extremities exam: Positive for: full ROM, normal inspection. Negative for: calf tenderness - Neurological Exam Neurological exam: Alert, Oriented x3 - Psychiatric Exam Psychiatric exam: Normal Affect, Normal Mood - Skin Skin Exam: Dry, Normal Color, Warm Results - Vital Signs Recent Vital Signs: Last Vital Signs Temp 98.4 F 09/11/18 01:41 Pulse 68 09/11/18 01:41 Resp 16 09/11/18 01:41 BP 128/71 09/11/18 01:41 Pulse Ox 100 09/11/18 01:41 - Labs Result Diagrams: 09/11/18 01:50 09/11/18 01:50 Labs: Laboratory Results - last 24 hr 09/11/18 09/11/18 09/11/18 01:50 01:50 01:50 WBC 5.8 RBC 5.14 Hgb 13.5 L Hct 41.5 L MCV 80.7 MCH 26.3 MCHC 32.5 RDW 13.8 Plt Count 277 MPV 9.3 PT 12.3 INR 1.08 APTT 31.4 Sodium 139 Potassium 4.0 Chloride 106 Carbon Dioxide 27 Anion Gap 10 BUN 16 Creatinine 1.1 Est GFR ( Amer) > 60 Est GFR (Non-Af Amer) > 60 Random Glucose 113 H Calcium 8.9 Total Bilirubin 0.5 AST 27 ALT 24 Alkaline Phosphatase 76 Lactate Dehydrogenase 374 Total Creatine Kinase 34 L Troponin I < 0.01 Total Protein 7.1 Albumin 4.1 Globulin 3.0 Albumin/Globulin Ratio 1.4 Assessment & Plan - Assessment and Plan (Free Text) Assessment: Pt is a 62yo male with a PMH of BPH, HTN, hypothyroid, and SVT who presents to the ED complaining of palpitations and chest pain which started while he was sleeping at about midnight last night. Plan: SVT/ Chest pain - trops negative, continue to trend - EKG shows no ST or T wave abnormalities - contiue cardizem - ECHO from last admission EF61%, no valvular abnormalities - Cardio consulted, Dr Rainey HTN - normotensive at this time, continue to monitor Hypothyroid - TSH - T3 Ppx - lovenox - protonix Pt seen, examined, assessment and plan discussed with Dr Aneudy Corona PGY1 - Date & Time Date: 09/11/18 Time: 06:13
[2018-09-11] MEDS ORDERED: Alum-Mag Hydrox-Simethicone Susp (30 mL) PO ONE (05:04)
[2018-09-11 08:37] LABS: BASO # 0.02 K/mm3 (0.0-2.0); BASO % 0.4 % (0.0-3.0); EOS # 0.1 (0.0-0.7); EOS % 2.3 % (1.5-5.0); GRAN # 2.86 (1.4-6.5); GRAN % 53.5 % (50.0-68.0); HEMOGLOBIN 13.8 g/dL (14.0-18.0); MEAN CELL VOLUME 80.4 fl (80.0-105.0); MEAN CORPUSCULAR HEMOGLOBIN 25.7 pg (25.0-35.0); MEAN CORPUSCULAR HGB CONC 31.9 g/dl (31.0-37.0); MEAN PLATELET VOLUME 9.2 fl (7.0-11.0); MONO # 0.4 (0.1-0.6); MONO % 6.8 % (1.0-6.0); RBC 5.37 10^6/uL (3.5-6.1); RED CELL DISTRIBUTION WIDTH 13.9 % (11.5-14.5); WHITE BLOOD COUNT 5.3 10^3/uL (4.5-11.0)
[2018-09-11 08:50] LABS: ALB/GLOB RATIO 1.3 (1.1-1.8); ALT/SGPT 19 U/L (7-56); AST/SGOT 20 U/L (17-59); BLOOD UREA NITROGEN 14 mg/dL (7-21); CALCIUM 8.9 mg/dL (8.4-10.5); GFR NON-AFRICAN AMERICAN > 60
[2018-09-11 08:57] LABS: TROPONIN I < 0.01 ng/mL
[2018-09-11 09:16] LABS: T3 1.3 ng/mL (0.97-1.69)
--- NOTE | 2018-09-11 09:24 | CARD ---
APPROVED REPORT Date of service: 09/11/2018 EKG Measurement Heart [id number] [id number] <Conclusion> Sinus bradycardia Otherwise normal ECG
--- NOTE | 2018-09-11 09:29 | CARD ---
APPROVED REPORT Date of service: 09/11/2018 EKG Measurement Heart [id number] 136P14 [id number] <Conclusion> Normal sinus rhythm Normal ECG
[2018-09-11] MEDS: Enoxaparin 40 mg Syringe SC SCH (09:42)
[2018-09-11] MEDS: diltiaZEM 180 mg/24 Hours CD Cap PO SCH (09:42)
[2018-09-11] MEDS: Pantoprazole 40 mg EC Tab PO SCH (09:48)
[2018-09-11] MEDS: Levothyroxine 100 MCG TAB PO SCH (09:48)
--- NOTE | 2018-09-11 10:45 | RAD ---
Date of service: 09/11/2018 HISTORY: chest pain COMPARISON: 09/09/2018 FINDINGS: LUNGS: No active pulmonary disease. PLEURA: No significant pleural effusion identified, no pneumothorax apparent. CARDIOVASCULAR: No aortic atherosclerotic calcification present. Normal cardiac size. No pulmonary vascular congestion. OSSEOUS STRUCTURES: No significant abnormalities. VISUALIZED UPPER ABDOMEN: Normal. OTHER FINDINGS: None. IMPRESSION: No active disease.
[2018-09-11] MEDS ORDERED: Lidocaine 2% Inj (20ml) ONE ×2 (12:15→12:20)
[2018-09-11] MEDS ORDERED: Midazolam 2 MG/2 ML VIAL ONE ×2 (12:16→12:36)
[2018-09-11] MEDS ORDERED: Heparin 2,000 ML IV ONE (12:17)
[2018-09-11] MEDS ORDERED: Iohexol 350mgl/ml 50 ML ONE (12:17)
[2018-09-11] MEDS ORDERED: Iodixanol 320 MG/ML 200 ML BOTTLE IV ONE (12:17)
[2018-09-11] MEDS ORDERED: Sodium Chloride 0.9% 1,000 ML IV SCH (13:15)
--- NOTE | 2018-09-11 13:55 | CARDCATH ---
PROCEDURE DATE: 09/11/2018 HISTORY: The patient is a 63-year-old male with a history of hypertension and hypercholesterolemia who is admitted for the third time this month for recurrent chest pain. His stress test was awaiting insurance approval for a nuclear stress test. Troponins are all negative. Because of the patient's anxiety and needs to know about his coronary artery disease, the patient was offered the options of stress test versus cardiac catheterization with its inherent plus, minuses. The patient wanted a cardiac catheterization. PROCEDURE: Left heart catheterization with coronary arteriography and left ventriculogram. The right femoral artery was cannulated with 6-Frisian sheath. There were no complications. I performed moderate sedation which included the presence of an independent trained observer that assisted the patient's consciousness and physiologic status. After administration of Versed and fentanyl, my intra service time was 15 minutes. The findings on catheterization revealed a right dominant circulation. The RCA was free of significant disease. The left main artery was unremarkable. The LAD and diagonal vessels revealed intimal irregularities without critical lesions. The circumflex artery was free of critical lesions. LV function revealed good LV function with an EF of 55-60%. Angio-Seal was used to close the femoral artery site. The patient tolerated the procedure well. In summary, the procedure revealed unremarkable coronary arteries with normal LV function. Given these findings, the patient's chest pain is not of cardiac origin. We will keep him on low-dose aspirin due to his intimal irregularities in his coronary tree and have a cardiac risk reduction program. Teto Russ MD
[2018-09-12] MEDS: Pantoprazole 40 mg EC Tab PO SCH (05:01)
[2018-09-12 06:35] LABS: ALB/GLOB RATIO 1.3 (1.1-1.8); ALBUMIN 3.7 g/dL (3.0-4.8); ALT/SGPT 25 U/L (7-56); AST/SGOT 23 U/L (17-59); BLOOD UREA NITROGEN 11 mg/dL (7-21); GFR NON-AFRICAN AMERICAN > 60
[2018-09-12 06:39] LABS: BASO # 0.02 K/mm3 (0.0-2.0); BASO % 0.4 % (0.0-3.0); EOS # 0.2 (0.0-0.7); EOS % 3.5 % (1.5-5.0); GRAN # 2.32 (1.4-6.5); HEMOGLOBIN 13.1 g/dL (14.0-18.0); LYMPH # 1.7 (1.2-3.4); LYMPH % 36.3 % (22.0-35.0); MEAN CELL VOLUME 80.5 fl (80.0-105.0); MEAN CORPUSCULAR HEMOGLOBIN 25.8 pg (25.0-35.0); MEAN CORPUSCULAR HGB CONC 32.1 g/dl (31.0-37.0); MEAN PLATELET VOLUME 9.2 fl (7.0-11.0); MONO # 0.4 (0.1-0.6); MONO % 8.8 % (1.0-6.0); RBC 5.07 10^6/uL (3.5-6.1); RED CELL DISTRIBUTION WIDTH 14.1 % (11.5-14.5); WHITE BLOOD COUNT 4.6 10^3/uL (4.5-11.0)
--- NOTE | 2018-09-12 08:30 | CARD ---
APPROVED REPORT Date of service: 09/11/2018 EKG Measurement Heart [id number] 150P33 [id number] <Conclusion> Normal sinus rhythm Normal ECG
[2018-09-12 08:36] VITALS: BP 126/77; PULSE 64; RESP 20; TEMP 98.2; O2SAT 98
[2018-09-12] MEDS: diltiaZEM 180 mg/24 Hours CD Cap PO SCH (10:31)
[2018-09-12] MEDS: Levothyroxine 100 MCG TAB PO SCH (10:31)
[2018-09-12] MEDS: Enoxaparin 40 mg Syringe SC SCH (10:32)
--- NOTE | 2018-09-12 19:12 | CP.PCM.DIS ---
Provider - Provider Date of Admission: 09/11/18 03:59 Attending physician: Dillon Henry MD Primary care physician: Mandy Gleason DO Time Spent in preparation of Discharge (in minutes): 45 Diagnosis - Discharge Diagnosis (1) Chest pain Status: Acute (2) Tachycardia Status: Acute Priority: High Hospital Course - Lab Results Lab Results: Most Recent Lab Values WBC 4.6 10^3/uL (4.5-11.0) 09/12/18 06:00 RBC 5.07 10^6/uL (3.5-6.1) 09/12/18 06:00 Hgb 13.1 g/dL (14.0-18.0) L 09/12/18 06:00 Hct 40.8 % (42.0-52.0) L 09/12/18 06:00 MCV 80.5 fl (80.0-105.0) 09/12/18 06:00 MCH 25.8 pg (25.0-35.0) 09/12/18 06:00 MCHC 32.1 g/dl (31.0-37.0) 09/12/18 06:00 RDW 14.1 % (11.5-14.5) 09/12/18 06:00 Plt Count 251 10^3/uL (120.0-450.0) 09/12/18 06:00 MPV 9.2 fl (7.0-11.0) 09/12/18 06:00 Gran % 51.0 % (50.0-68.0) 09/12/18 06:00 Lymph % (Auto) 36.3 % (22.0-35.0) H 09/12/18 06:00 [place] % (Auto) 8.8 % (1.0-6.0) H 09/12/18 06:00 Eos % (Auto) 3.5 % (1.5-5.0) 09/12/18 06:00 Baso % (Auto) 0.4 % (0.0-3.0) 09/12/18 06:00 Gran # 2.32 (1.4-6.5) 09/12/18 06:00 Lymph # (Auto) 1.7 (1.2-3.4) 09/12/18 06:00 [place] # (Auto) 0.4 (0.1-0.6) 09/12/18 06:00 Eos # (Auto) 0.2 (0.0-0.7) 09/12/18 06:00 Baso # (Auto) 0.02 K/mm3 (0.0-2.0) 09/12/18 06:00 PT 12.3 SECONDS (9.4-12.5) 09/11/18 01:50 INR 1.08 09/11/18 01:50 APTT 31.4 Seconds (25.1-36.5) 09/11/18 01:50 Sodium 138 mmol/L (132-148) 09/12/18 06:00 Potassium 4.0 mmol/L (3.6-5.0) 09/12/18 06:00 Chloride 107 mmol/L (98-107) 09/12/18 06:00 Carbon Dioxide 29 mmol/L (21-33) 09/12/18 06:00 Anion Gap 6 (10-20) L 09/12/18 06:00 BUN 11 mg/dL (7-21) 09/12/18 06:00 Creatinine 1.0 mg/dl (0.8-1.5) 09/12/18 06:00 Est GFR ( Amer) > 60 09/12/18 06:00 Est GFR (Non-Af Amer) > 60 09/12/18 06:00 Random Glucose 92 mg/dL (70-110) 09/12/18 06:00 Calcium 9.0 mg/dL (8.4-10.5) 09/12/18 06:00 Total Bilirubin 0.6 mg/dL (0.2-1.3) 09/12/18 06:00 AST 23 U/L (17-59) 09/12/18 06:00 ALT 25 U/L (7-56) 09/12/18 06:00 Alkaline Phosphatase 73 U/L (38-126) 09/12/18 06:00 Lactate Dehydrogenase 374 U/L (333-699) 09/11/18 01:50 Total Creatine Kinase 34 U/L (35-230) L 09/11/18 01:50 Troponin I < 0.01 ng/mL 09/11/18 14:00 Total Protein 6.6 g/dL (5.8-8.3) 09/12/18 06:00 Albumin 3.7 g/dL (3.0-4.8) 09/12/18 06:00 Globulin 2.9 gm/dL 09/12/18 06:00 Albumin/Globulin Ratio 1.3 (1.1-1.8) 09/12/18 06:00 Total T3 1.30 ng/mL (0.97-1.69) 09/11/18 08:10 TSH 3rd Generation 1.80 mIU/mL (0.46-4.68) 09/11/18 08:10 - Hospital Course Hospital Course: Upon admission Mr. Hammonds is a 63 year old male with a past medical history of BPH, HTN, hypothyroid, and SVT who presented to the [facility] Emergency Department on 09/11 complaining of palpitations and chest pain. Patient stated that he was discharged from the hospital the day prior, but returned on 09/11 because his chest pain returned. Patient described pain as 8/10 and radiated to jaw and back. Patient stated he took nitroglycerin at home prior to arrival at the hospital and noted improvement of his symptoms. Patient admitted to prior smoking history, having quit 30 years ago. Patient stated that his home medications included aspirin, synthroid, cardizem, lipitor, and flomax. Hospital course Initial EKG and chest x-ray were ordered. EKG revealed sinus bradycardia with HR of 54. Chest x-ray revealed no active disease. Troponins were ordered and were negative X 3. Home medications of aspirin, synthroid, cardizem, lipitor and flomax were continued. Lovenox and protonix were started for DVT and GI prophylaxis. Cardiology was consulted. Cardiology weighed risks and benefits of stress test versus cardiac catheterization with patient, and patient opted for cardiac catheterization. Left heart catheterization was performed. L heart cath showed unremarkable coronary arteries with normal LV function. Cardio states that due to these findings, the pt chest pain is likely not due to a cardiac origin. Repeat EKG showed normal sinus rhythm with heart rate of 78. After these findings were explained to the pt, he expressed interest in going home. Pt states understanding of medical plan to be discharged home and is in agreement with the plan. For a complete record of hospital course, please see medical record. Upon discharge Patient is to follow-up with his primary care doctor within 5-7 days of discharge. Patient is to follow-up with his mandolin repair person, Dr. Brown, within 3-5 days of discharge. Patient is to continue home medications. Pt was informed that if his symptoms return or if new symptoms begin then please return to the Emergency Department. These instructions were explained to the patient, and the patient understood. Discharge Exam - Head Exam Head Exam: ATRAUMATIC, NORMAL INSPECTION, NORMOCEPHALIC - Eye Exam Eye Exam: EOMI, Normal appearance, PERRL - Respiratory Exam Respiratory Exam: NORMAL BREATHING PATTERN, UNREMARKABLE. absent: Accessory Muscle Use, Decreased Breath Sounds, Rales, Rhonchi, Wheezes, Respiratory Distress, Stridor - Cardiovascular Exam Cardiovascular Exam: RRR, +S1, +S2. absent: Gallop, Rubs - GI/Abdominal Exam GI & Abdominal Exam: Normal Bowel Sounds, Soft. absent: Firm, Guarding, Rigid, Tenderness - Extremities Exam Extremities exam: normal capillary refill, normal inspection, pedal pulses present - Back Exam Back exam: NORMAL INSPECTION. absent: CVA tenderness (L), CVA tenderness (R) - Neurological Exam Neurological exam: Alert, Oriented x3 - Psychiatric Exam Psychiatric exam: Normal Affect, Normal Mood - Skin Skin Exam: Dry, Intact, Normal Color, Warm Discharge Plan - Follow Up Plan Condition: STABLE Disposition: HOME/ ROUTINE Instructions: Chest Pain (GEN) Additional Instructions: - Please follow up with your Primary care doctor Dr. Gleason within 3-5 days of discharge. - Follow up with your mandolin repair person, Dr. Brown, within one week of discharge. - Please take your prescribed dose of baby aspirin 81mg daily. - Please continue taking your home medications as directed. - If you begin having any new or worsening symptoms please return to the Emergency Department. Referrals: Mandy Gleason DO [Primary Care Provider] -
== END 2018-09-12 11:58 | disposition home or self-care (01) ==
LOC: ED 01:21 → ERH 03:59 → 3RSO 04:54 → 2RSO 13:29 → 3RSO 19:01
PROVIDERS: ADMIT Internal Medicine; ATTEND Internal Medicine
DX: R07.9 Chest pain, unspecified (principal); R00.0 Tachycardia, unspecified; E03.9 Hypothyroidism, unspecified; E78.00 Pure hypercholesterolemia, unspecified; F41.9 Anxiety disorder, unspecified; I10 Essential (primary) hypertension; I25.10 Atherosclerotic heart disease of native coronary artery without angina pectoris; K21.9 Gastro-esophageal reflux disease without esophagitis; N40.0 Benign prostatic hyperplasia without lower urinary tract symptoms; Z87.891 Personal history of nicotine dependence
CPT/HCPCS: 36415; 71045; 80053; 82550; 83615; 84443; 84480; 84484; 85025; 85027; 85610; 85730; 93005; 93458; 96372; 99152; 99153; 99285; C1760; C1769; C2629; G0378; J1644; J1650; J2250; J3010; J7030; Q9966

== ENCOUNTER 2018-09-21 19:23 | Observation (INO) | payer MEDICAID ==
[2018-09-21 19:23] VITALS: BMI 27.9
--- NOTE | 2018-09-21 19:56 | ED PDOC ---
Arrival/HPI - General Chief Complaint: Chest Pain Time Seen by Provider: 09/21/18 19:31 - History of Present Illness Narrative History of Present Illness (Text): 63 year old M c Past medical history BPH, HTN, hypothyroid, and SVT p/w chest pain x 6 hours. Pain is R sided, sharp, constant, associated with nausea. Denies fever, chills, dyspnea, vomiting. Patient has had chest pain multiple times in the past. Has had numerous studies in this hospital recently including negative cardiac cath, negative trops, and negative CT angio for PE. Patient states this chest pain feels somewhat different from the chest pain he has been coming for. Past Medical History - Infectious Disease Hx of Infectious Diseases: None - Tetanus Immunization Tetanus Immunization: Unknown - Cardiac Hx Cardiac Disorders: Yes Hx Hypertension: Yes - Pulmonary Hx Respiratory Disorders: No - Neurological Hx Neurological Disorder: No - HEENT Hx HEENT Disorder: No - Renal Hx Renal Disorder: No - Endocrine/Metabolic Hx Endocrine Disorders: Yes Hx Hypothyroidism: Yes - Hematological/Oncological Hx Blood Disorders: No - Integumentary Hx Dermatological Disorder: No - Musculoskeletal/Rheumatological Hx Musculoskeletal Disorders: No - Gastrointestinal Hx Gastrointestinal Disorders: Yes Hx Gastritis: Yes Hx Gastroesophageal Reflux: Yes - Genitourinary/Gynecological Hx Genitourinary Disorders: Yes Hx Prostate Problems: Yes - Psychiatric Hx Psychophysiologic Disorder: Yes Hx Anxiety: Yes Hx Substance Use: No - Surgical History Hx Cataract Extraction: Yes Hx Cardiac Catheterization: Yes (10 days ago) - Anesthesia Hx Anesthesia: Yes Hx Anesthesia Reactions: No Hx Malignant Hyperthermia: No - Suicidal Assessment Feels Threatened In Home Enviroment: No Family/Social History Family/Social History: No Known Family HX Smoking Status: Former Smoker Hx Alcohol Use: No Hx Substance Use: No Hx Substance Use Treatment: No Allergies/Home Meds Allergies/Adverse Reactions: Allergies Penicillins Allergy (Verified 09/21/18 19:29) SWELLING Home Medications: Home Meds Medication Instructions Recorded Confirmed Tamsulosin [Flomax] 0.4 mg PO DAILY 09/25/14 09/11/18 Levothyroxine Sodium 100 mcg PO DAILY 06/08/17 09/11/18 Aspirin [Aspirin Chewable] 81 mg PO DAILY 09/05/18 09/11/18 Review of Systems - Physician Review All systems were reviewed & negative as marked: Yes - Review of Systems Constitutional: absent: Fevers Respiratory: absent: SOB Physical Exam - Physical Exam Narrative Physical Exam (Text): Gen: NAD Head: NC/AT Eyes: PERRL ENT: MMM Neck: Supple Chest: Reproducible tenderness CV: Regular rate Lungs: CTA b/l Abd: Soft, NT Back: No CVA tenderness Extremities: No edema Skin: No rash Neuro: Alert, no focal deficit Medical Decision Making ED Course and Treatment: EKG NSR 77 bpm, no ST/T wave changes. CXR no acute disease. Aspirin 324 PO taken prior to arrrival. Dr. Mac accepts to hospitalist service. - RAD Interpretation Radiology Orders: 09/21/18 19:51 CHEST PORTABLE [RAD] Stat Disposition/Present on Arrival - Present on Arrival Any Indicators Present on Arrival: No History of DVT/PE: No History of Uncontrolled Diabetes: No Urinary Catheter: No History of Decub. Ulcer: No History Surgical Site Infection Following: None - Disposition Have Diagnosis and Disposition been Completed?: Yes Diagnosis: Chest pain Disposition: HOSPITALIZED Disposition Time: 20:54 Patient Plan: Observation, Telemetry Condition: STABLE Discharge Instructions (ExitCare): Chest Pain (ED) Forms: [employer] ([place])
[2018-09-21 20:10] LABS: BASO # 0.01 K/mm3 (0.0-2.0); BASO % 0.2 % (0.0-3.0); EOS # 0.2 (0.0-0.7); EOS % 4.1 % (1.5-5.0); GRAN # 2.29 (1.4-6.5); GRAN % 52.4 % (50.0-68.0); HEMOGLOBIN 13.9 g/dL (14.0-18.0); LYMPH # 1.6 (1.2-3.4); LYMPH % 36.5 % (22.0-35.0); MEAN CELL VOLUME 81.6 fl (80.0-105.0); MEAN CORPUSCULAR HEMOGLOBIN 26.3 pg (25.0-35.0); MEAN CORPUSCULAR HGB CONC 32.3 g/dl (31.0-37.0); MEAN PLATELET VOLUME 9.4 fl (7.0-11.0); MONO # 0.3 (0.1-0.6); MONO % 6.8 % (1.0-6.0); RBC 5.28 10^6/uL (3.5-6.1); RED CELL DISTRIBUTION WIDTH 14.5 % (11.5-14.5); WHITE BLOOD COUNT 4.4 10^3/uL (4.5-11.0)
[2018-09-21 20:16] LABS: ALB/GLOB RATIO 1.5 (1.1-1.8); ALBUMIN 4.4 g/dL (3.0-4.8); ALT/SGPT 20 U/L (7-56); AST/SGOT 20 U/L (17-59); BLOOD UREA NITROGEN 12 mg/dL (7-21); CALCIUM 9.9 mg/dL (8.4-10.5); GFR NON-AFRICAN AMERICAN > 60
[2018-09-21 20:21] LABS: TROPONIN I < 0.01 ng/mL
--- NOTE | 2018-09-21 21:51 | CP.PCM.HP ---
<Theo Zhao - Last Filed: 09/21/18 22:02> History of Present Illness - History of Present Illness History of Present Illness: Theo Zhao DO, PGY-1 Hospitalist Admission History and Physical for Dr. Naga Mac CC: chest pain HPI: 63 year old male with PMHx BPH, HTN, hypothyroidism, and SVT presents to the ED complaining of sharp, right sided chest pain. Patient states that the pain began at 1 pm and has been constant since onset. Of note, he states that yesterday he was pushing his bed, where he may have over strained himself. He rates the pain currently at 8/10. He states that he has tried taking 2 tylenol with no remission of pain. The pain gets worse with movement of his right arm. He also states that he is able to reproduce the pain by pressing upon his chest wall. Patient was discharged last week for left sided chest pain. At that time, PCI showed unremarkable coronary arteries with normal LV function. Patient states that he has also experienced nausea with mild abdominal pain. He denies shortness of breath, sweating, radiation of pain into his arm or jaw, vomiting, diarrhea, and constipation. A full 12 point ROS was taken and was unremarkable unless otherwise stated above in HPI. SocHx: Former smoker (quit 30 yrs ago), denies alcohol use, denies illicit drug use. PMHx: HTN, BPH, hypothyroidism, SVT Allergies: Penicillin (skin rash) SurgHx: b/l cataracts (2016, 2017) FamHx: Father (BPH); Mother ( from liver failure coplications); sister (u/l renal agenesis) Meds: ASA 81 mg, synthyroid 100 mcg daily, Cardizem 120 mg PO daily, flomax 0.4 mg daily PMD: [facility] ([address] [place] [address]) Review Appraiser: Consuelo Ahuja (at [facility]) PMD: [facility] Pharmacy: [address] Present on Admission - Present on Admission Any Indicators Present on Admission: No History of DVT/PE: No History of Uncontrolled Diabetes: No Urinary Catheter: No Decubitus Ulcer Present: No Review of Systems - Constitutional Constitutional: absent: Chills, Fever - EENT Eyes: absent: Blurred Vision - Cardiovascular Cardiovascular: Chest Pain. absent: Diaphoresis, Dyspnea, Pain Radiating to Arm/Neck/Jaw, Palpitations - Respiratory Respiratory: absent: Cough, Dyspnea, Wheezing - Gastrointestinal Gastrointestinal: absent: Abdominal Pain, Nausea, Vomiting - Genitourinary Genitourinary: absent: Change in Urinary Stream, Difficulty Urinating - Neurological Neurological: absent: Dizziness, Numbness, Headaches Past Patient History - Infectious Disease Hx of Infectious Diseases: None - Tetanus Immunizations Tetanus Immunization: Unknown - Past Medical History & Family History Past Medical History?: Yes - Past Social History Smoking Status: Former Smoker - CARDIAC Hx Cardiac Disorders: Yes Hx Hypertension: Yes - PULMONARY Hx Respiratory Disorders: No - NEUROLOGICAL Hx Neurological Disorder: No - HEENT Hx HEENT Problems: No - RENAL Hx Chronic Kidney Disease: No - ENDOCRINE/METABOLIC Hx Endocrine Disorders: Yes Hx Hypothyroidism: Yes - HEMATOLOGICAL/ONCOLOGICAL Hx Blood Disorders: No - INTEGUMENTARY Hx Dermatological Problems: No - MUSCULOSKELETAL/RHEUMATOLOGICAL Hx Musculoskeletal Disorders: No - GASTROINTESTINAL Hx Gastrointestinal Disorders: Yes Hx Gastritis: Yes Hx Gastroesophageal Reflux: Yes - GENITOURINARY/GYNECOLOGICAL Hx Genitourinary Disorders: Yes Hx Prostate Problems: Yes - PSYCHIATRIC Hx Psychophysiologic Disorder: Yes Hx Anxiety: Yes Hx Substance Use: No - SURGICAL HISTORY Hx Cataract Extraction: Yes Hx Cardiac Catheterization: Yes (10 days ago) - ANESTHESIA Hx Anesthesia: Yes Hx Anesthesia Reactions: No Hx Malignant Hyperthermia: No Meds Allergies/Adverse Reactions: Allergies Allergy/AdvReac Type Severity Reaction Status Date / Time Penicillins Allergy SWELLING Verified 09/21/18 19:29 Physical Exam - Constitutional Appears: Non-toxic, No Acute Distress - Head Exam Head Exam: ATRAUMATIC, NORMOCEPHALIC - Eye Exam Eye Exam: EOMI, Normal appearance, PERRL - ENT Exam ENT Exam: Mucous Membranes Moist - Neck Exam Neck exam: Positive for: Full Rom, Normal Inspection - Respiratory Exam Respiratory Exam: Clear to Auscultation Bilateral, NORMAL BREATHING PATTERN. absent: Rales, Rhonchi, Wheezes - Cardiovascular Exam Cardiovascular Exam: REGULAR RHYTHM, RRR, +S1, +S2. absent: Diastolic murmur, Gallop, Rubs, Systolic Murmur Additional comments: R chest wall tender to palpation - GI/Abdominal Exam GI & Abdominal Exam: Normal Bowel Sounds, Soft. absent: Guarding, Tenderness - Extremities Exam Extremities exam: Positive for: normal inspection. Negative for: pedal edema - Back Exam Back exam: FULL ROM, NORMAL INSPECTION - Neurological Exam Neurological exam: Alert, Oriented x3 - Psychiatric Exam Psychiatric exam: Normal Affect, Normal Mood - Skin Skin Exam: Dry, Intact, Warm Results - Labs Result Diagrams: 09/21/18 19:48 09/21/18 19:48 Labs: Laboratory Results - last 24 hr 09/21/18 09/21/18 19:48 19:48 WBC 4.4 L RBC 5.28 Hgb 13.9 L Hct 43.1 MCV 81.6 MCH 26.3 MCHC 32.3 RDW 14.5 Plt Count 330 MPV 9.4 Gran % 52.4 Lymph % (Auto) 36.5 H [place] % (Auto) 6.8 H Eos % (Auto) 4.1 Baso % (Auto) 0.2 Gran # 2.29 Lymph # (Auto) 1.6 [place] # (Auto) 0.3 Eos # (Auto) 0.2 Baso # (Auto) 0.01 Sodium 143 Potassium 4.8 Chloride 104 Carbon Dioxide 28 Anion Gap 15 BUN 12 Creatinine 0.9 Est GFR ( Amer) > 60 Est GFR (Non-Af Amer) > 60 Random Glucose 106 Calcium 9.9 Total Bilirubin 0.3 AST 20 ALT 20 Alkaline Phosphatase 92 Total Creatine Kinase 46 Troponin I < 0.01 Total Protein 7.4 Albumin 4.4 Globulin 3.0 Albumin/Globulin Ratio 1.5 Assessment & Plan - Assessment and Plan (Free Text) Assessment: 63 yo M with PMH of HTN, BPH, hypothyroidism, and SVT is admitted for chest pain and ACS r/o. Plan: 1. Chest pain Likely 2/2 musculoskeletal strain from recent heavy lifting Was discharged last week for episode of L sided CP PCI was done at that time and found no stenosis in any of the coronary arteries Initial troponin negative Trend troponin q6h x 2 Repeat EKG in AM Will give toradol 15 mg IVP x 3 doses 2. Hx hypothyroidism Continue home synthroid 3. Hx BPH Continue home meds Denies urinary complaints at this time DVT/GI PPX: SCD/protonix Full Code HHD Monitor on remote telemetry Case and plan reviewed and discussed with my attending Dr. Naga Zhao, IM Resident PGY-1 <Natalya Mac R - Last Filed: 09/22/18 03:07> Results - Vital Signs Recent Vital Signs: Last Vital Signs Temp Pulse 67 09/21/18 23:17 Resp 18 09/21/18 23:17 BP Pulse Ox 98 09/22/18 00:43 - Labs Result Diagrams: 09/21/18 19:48 09/21/18 19:48 Labs: Laboratory Results - last 24 hr 09/21/18 09/21/18 09/22/18 19:48 19:48 02:31 WBC 4.4 L RBC 5.28 Hgb 13.9 L Hct 43.1 MCV 81.6 MCH 26.3 MCHC 32.3 RDW 14.5 Plt Count 330 MPV 9.4 Gran % 52.4 Lymph % (Auto) 36.5 H [place] % (Auto) 6.8 H Eos % (Auto) 4.1 Baso % (Auto) 0.2 Gran # 2.29 Lymph # (Auto) 1.6 [place] # (Auto) 0.3 Eos # (Auto) 0.2 Baso # (Auto) 0.01 Sodium 143 Potassium 4.8 Chloride 104 Carbon Dioxide 28 Anion Gap 15 BUN 12 Creatinine 0.9 Est GFR ( Amer) > 60 Est GFR (Non-Af Amer) > 60 Random Glucose 106 Calcium 9.9 Total Bilirubin 0.3 AST 20 ALT 20 Alkaline Phosphatase 92 Total Creatine Kinase 46 Troponin I < 0.01 < 0.01 Total Protein 7.4 Albumin 4.4 Globulin 3.0 Albumin/Globulin Ratio 1.5 Attending/Attestation - Attestation I have personally seen and examined this patient.: Yes I have fully participated in the care of the patient.: Yes I have reviewed all pertinent clinical information: Yes Notes (Text): Patient seen and examined by me with resident at 9PM on 09/21/18. Case including HPI, physical exam, and assessment and plan discussed with resident. Agree with above with following additions/corrections. Patient is a 63 year-old male with past medical history significant for BPH, hypertension, hypothyroidism, chest pain, and SVT that presented to the emergency room complaining of right sided reproducible chest pain. Patient states that the chest pain started around 1 PM. He states that it's right-sided above his right breast. Pain is sharp and constant. Pain is worse when he moves his arm and when the area is palpated. No associated shortness of breath or diaphoresis. No radiation of the pain. Patient states he tried Tylenol with no relief. He states 2 days ago he moved a heavy bed by himself. Patient denies any palpitations. He states that he did have a little bit of abdominal pain and nausea. No diarrhea or constipation. No dysuria. No headaches or dizziness. No change in vision. No neck pain or back pain. No fevers or chills. No dysuria. 12 point review of systems reviewed by me. Please see above HPI, all other systems negative. Physical exam: General: Awake and alert lying in bed in no acute distress HEENT: Normocephalic, atraumatic. Extraocular muscles intact, pupils equal and reactive, no scleral icterus. Oropharynx is pink and moist. Neck is supple. Hearing grossly intact. Ears and nose externally unremarkable. Cardiovascular: Normal rhythm. Normal S1, S2. No murmurs, rubs, or gallops appr eciated Pulmonary: Normal respiratory effort. No rhonchi, rales, or wheezing appreciated. Gastrointestinal: Soft, nondistended. Nontender. Positive bowel sounds all 4 quadrants. No guarding. Musculoskeletal: Moves all extremities. No edema appreciated. No calf tenderness. No CVA tenderness. Positive right anterior chest wall tenderness with palpation. Central nervous system: AAO x3, CN 2-12 grossly intact. 5 out of 5 muscle strength all extremities. Dermatologic: Skin warm and dry. Assessment and plan: Patient is a 63 year-old male with past medical history significant for BPH, hypertension, hypothyroidism, chest pain, and SVT that presented to the emergency room complaining of right sided reproducible chest pain. 1. Chest pain. Right-sided and reproducible. Unlikely cardiac in origin. Likely musculoskeletal. First troponin within normal limits. Follow up serial troponins. Continue home aspirin, labetalol, and Lipitor. Patient had heart catheterization on 09/11/18 which per plant operations worker showed unremarkable coronary arteries with normal LV function. Placed on Toradol when necessary pain. Monitor on telemetry. 2. History of SVT and palpitations. Continue home Cardizem. 3. Essential hypertension. Continue home Cardizem and labetalol 4. Hypothyroidism. Continue home Synthroid. 5. BPH. Continue home Flomax. 6. GI/DVT prophylaxis. Protonix/SCDs 7. Patient is a full code Case was discussed in detail with the patient regarding current diagnosis and treatment plan. All questions answered.
[2018-09-22] MEDS ORDERED: Pantoprazole 40 mg EC Tab PO SCH (06:00)
[2018-09-22] MEDS ORDERED: Levothyroxine 100 MCG TAB PO SCH (06:00)
[2018-09-22 06:57] LABS: BASO # 0.02 K/mm3 (0.0-2.0); BASO % 0.5 % (0.0-3.0); EOS # 0.2 (0.0-0.7); EOS % 5.2 % (1.5-5.0); GRAN # 1.73 (1.4-6.5); HEMOGLOBIN 12.9 g/dL (14.0-18.0); LYMPH # 1.9 (1.2-3.4); LYMPH % 44.8 % (22.0-35.0); MEAN CELL VOLUME 81.3 fl (80.0-105.0); MEAN CORPUSCULAR HGB CONC 31.9 g/dl (31.0-37.0); MEAN PLATELET VOLUME 9.5 fl (7.0-11.0); MONO # 0.4 (0.1-0.6); MONO % 8.5 % (1.0-6.0); RBC 4.97 10^6/uL (3.5-6.1); RED CELL DISTRIBUTION WIDTH 14.6 % (11.5-14.5); WHITE BLOOD COUNT 4.2 10^3/uL (4.5-11.0)
[2018-09-22 07:27] LABS: TROPONIN I < 0.01 ng/mL
[2018-09-22 07:28] LABS: LDL CHOLESTEROL 81 mg/dL (0-129)
[2018-09-22 08:00] LABS: ALB/GLOB RATIO 1.3 (1.1-1.8); ALBUMIN 3.7 g/dL (3.0-4.8); ALT/SGPT 21 U/L (7-56); AST/SGOT 22 U/L (17-59); BLOOD UREA NITROGEN 13 mg/dL (7-21); CALCIUM 9.7 mg/dL (8.4-10.5); GFR NON-AFRICAN AMERICAN > 60; HDL CHOLESTEROL 44 mg/dL (29-60)
[2018-09-22 09:14] VITALS: O2SAT 100
--- NOTE | 2018-09-22 09:15 | RAD ---
Date of service: 09/21/2018 HISTORY: chest pain COMPARISON: 09/11/2018 FINDINGS: LUNGS: No active pulmonary disease. PLEURA: No significant pleural effusion identified, no pneumothorax apparent. CARDIOVASCULAR: No aortic atherosclerotic calcification present. Normal cardiac size. No pulmonary vascular congestion. OSSEOUS STRUCTURES: No significant abnormalities. VISUALIZED UPPER ABDOMEN: Normal. OTHER FINDINGS: None. IMPRESSION: No active disease.
[2018-09-22] MEDS ORDERED: diltiaZEM 180 mg/24 Hours CD Cap PO SCH (10:00)
[2018-09-22 12:15] VITALS: BP 131/78; RESP 20; TEMP 98.2
--- NOTE | 2018-09-22 14:30 | CP.PCM.DIS ---
<Anastasia Lyon - Last Filed: 09/22/18 18:40> Provider - Provider Date of Admission: 09/21/18 20:44 Attending physician: Natalya Mac DO Primary care physician: Victorino Consults: None Time Spent in preparation of Discharge (in minutes): 60 Diagnosis - Discharge Diagnosis (1) Musculoskeletal chest pain Status: Acute Hospital Course - Lab Results Lab Results: Most Recent Lab Values WBC 4.2 10^3/uL (4.5-11.0) L 09/22/18 06:20 RBC 4.97 10^6/uL (3.5-6.1) 09/22/18 06:20 Hgb 12.9 g/dL (14.0-18.0) L 09/22/18 06:20 Hct 40.4 % (42.0-52.0) L 09/22/18 06:20 MCV 81.3 fl (80.0-105.0) 09/22/18 06:20 MCH 26.0 pg (25.0-35.0) 09/22/18 06:20 MCHC 31.9 g/dl (31.0-37.0) 09/22/18 06:20 RDW 14.6 % (11.5-14.5) H 09/22/18 06:20 Plt Count 273 10^3/uL (120.0-450.0) 09/22/18 06:20 MPV 9.5 fl (7.0-11.0) 09/22/18 06:20 Gran % 41.0 % (50.0-68.0) L 09/22/18 06:20 Lymph % (Auto) 44.8 % (22.0-35.0) H 09/22/18 06:20 Johnson % (Auto) 8.5 % (1.0-6.0) H 09/22/18 06:20 Eos % (Auto) 5.2 % (1.5-5.0) H 09/22/18 06:20 Baso % (Auto) 0.5 % (0.0-3.0) 09/22/18 06:20 Gran # 1.73 (1.4-6.5) 09/22/18 06:20 Lymph # (Auto) 1.9 (1.2-3.4) 09/22/18 06:20 Johnson # (Auto) 0.4 (0.1-0.6) 09/22/18 06:20 Eos # (Auto) 0.2 (0.0-0.7) 09/22/18 06:20 Baso # (Auto) 0.02 K/mm3 (0.0-2.0) 09/22/18 06:20 Sodium 140 mmol/L (132-148) 09/22/18 06:20 Potassium 5.0 mmol/L (3.6-5.0) 09/22/18 06:20 Chloride 106 mmol/L (98-107) 09/22/18 06:20 Carbon Dioxide 28 mmol/L (21-33) 09/22/18 06:20 Anion Gap 12 (10-20) 09/22/18 06:20 BUN 13 mg/dL (7-21) 09/22/18 06:20 Creatinine 1.2 mg/dl (0.8-1.5) 09/22/18 06:20 Est GFR ( Amer) > 60 09/22/18 06:20 Est GFR (Non-Af Amer) > 60 09/22/18 06:20 Random Glucose 110 mg/dL (70-110) 09/22/18 06:20 Calcium 9.7 mg/dL (8.4-10.5) 09/22/18 06:20 Phosphorus 4.7 mg/dL (2.5-4.5) H 09/22/18 06:20 Magnesium 2.2 mg/dL (1.7-2.2) 09/22/18 06:20 Total Bilirubin 0.4 mg/dL (0.2-1.3) 09/22/18 06:20 AST 22 U/L (17-59) 09/22/18 06:20 ALT 21 U/L (7-56) 09/22/18 06:20 Alkaline Phosphatase 74 U/L (38-126) 09/22/18 06:20 Total Creatine Kinase 46 U/L (35-230) 09/21/18 19:48 Troponin I < 0.01 ng/mL 09/22/18 06:20 Total Protein 6.6 g/dL (5.8-8.3) 09/22/18 06:20 Albumin 3.7 g/dL (3.0-4.8) 09/22/18 06:20 Globulin 2.9 gm/dL 09/22/18 06:20 Albumin/Globulin Ratio 1.3 (1.1-1.8) 09/22/18 06:20 Triglycerides 200 mg/dL (35-160) H 09/22/18 06:20 Cholesterol 144 mg/dL (130-200) 09/22/18 06:20 LDL Cholesterol Direct 81 mg/dL (0-129) 09/22/18 06:20 HDL Cholesterol 44 mg/dL (29-60) 09/22/18 06:20 - Hospital Course Hospital Course: Mr. Hammonds is a 63 year old male with a past medical history of BPH, HTN, hypothyroidism, and SVT who presented to the [facility] Emergency Department on 09/21 complaining of right-sided chest pain. Patient admitted that the day before he was pushing a bed, and that he may have strained himself. Patient stated that the pain was worsened with movement of the right arm and palpation of the chest. Of note, patient was discharged last week after a cardiac cath that showed unremarkable coronary arteries with normal left ventricular function. Patient denied shortness of breath, sweating, radiation of pain, vomiting, diarrhea, and constipation. EKG and troponins obtained x 3 are negative. On physical exam, his right sided musculoskeletal chest pain was reproducible. Discussed with patient that it is musculoskeletal chest pain and patient agrees to the assessment. Patient to go home on Flexeril for 3 days and naproxen for 5 days. Patient advised to avoid driving car and avoid operating heavy machinery while on flexeril, patient verbalized understanding. Patient to follow up with his primary care doctor Dr Gleason in 1 week and to continue his home medications as directed. Patient seen, examined and discussed with attending, Dr Patel. Discharge Exam - Head Exam Head Exam: ATRAUMATIC, NORMOCEPHALIC - Eye Exam Eye Exam: EOMI, PERRL. absent: Conjunctival injection, Nystagmus, Scleral icterus Pupil Exam: NORMAL ACCOMODATION, PERRL. absent: Irregular, Miosis, Unequal - ENT Exam ENT Exam: Mucous Membranes Moist - Neck Exam Neck exam: Full Rom - Respiratory Exam Respiratory Exam: Chest Wall Tenderness (right sided - pectoralis minor distribution), Clear to PA & Lateral, NORMAL BREATHING PATTERN. absent: Wheezes, Respiratory Distress, Stridor - Cardiovascular Exam Cardiovascular Exam: RRR, +S1, +S2. absent: Systolic Murmur - GI/Abdominal Exam GI & Abdominal Exam: Normal Bowel Sounds, Soft. absent: Distended, Firm, Guarding, Organomegaly, Rebound, Rigid, Tenderness - Extremities Exam Extremities exam: normal inspection - Back Exam Back exam: NORMAL INSPECTION. absent: CVA tenderness (L), CVA tenderness (R) - Neurological Exam Neurological exam: Alert, Oriented x3 - Psychiatric Exam Psychiatric exam: Normal Affect, Normal Mood - Skin Skin Exam: Dry, Normal Color, Warm Discharge Plan - Discharge Medications Prescriptions: Cyclobenzaprine [Flexeril] 5 mg PO TID 3 Days #9 tab Naproxen [Naprosyn] 500 mg PO BID 5 Days #10 tablet - Follow Up Plan Condition: STABLE Disposition: HOME/ ROUTINE Instructions: Heart Healthy Diet, Chest Pain That Is Not Caused by the Heart (DC), Chest Pain (DC), Low Salt Diet Additional Instructions: - Please follow up with your Primary care doctor Dr. Gleason within 3-5 days of discharge. - Follow up with your Certified Residential Medication Aide, Dr Brown, in 1-2 weeks. - Please take your prescribed dose of baby Aspirin 81mg daily. - Please continue taking your home medications as directed: Aspirin 81 mg, Diltiazem 180 mg, Lipitor, Levothyroxine, Labetalol, Flomax. - Take Naproxen for 5 days and flexeril for 3 days as prescribed for your right sided musculoskeletal chest pain. Do not drive or operate any heavy machinery while on Flexeril. - If you begin having any new or worsening symptoms, please return to the Emergency Department. Referrals: Mandy Gleason DO [Family Provider] - <Alejandro Patel - Last Filed: 09/23/18 06:42> Provider - Provider Date of Admission: 09/21/18 20:44 Attending physician: Natalya Mac DO Hospital Course - Lab Results Lab Results: Most Recent Lab Values WBC 4.2 10^3/uL (4.5-11.0) L 09/22/18 06:20 RBC 4.97 10^6/uL (3.5-6.1) 09/22/18 06:20 Hgb 12.9 g/dL (14.0-18.0) L 09/22/18 06:20 Hct 40.4 % (42.0-52.0) L 09/22/18 06:20 MCV 81.3 fl (80.0-105.0) 09/22/18 06:20 MCH 26.0 pg (25.0-35.0) 09/22/18 06:20 MCHC 31.9 g/dl (31.0-37.0) 09/22/18 06:20 RDW 14.6 % (11.5-14.5) H 09/22/18 06:20 Plt Count 273 10^3/uL (120.0-450.0) 09/22/18 06:20 MPV 9.5 fl (7.0-11.0) 09/22/18 06:20 Gran % 41.0 % (50.0-68.0) L 09/22/18 06:20 Lymph % (Auto) 44.8 % (22.0-35.0) H 09/22/18 06:20 Johnson % (Auto) 8.5 % (1.0-6.0) H 09/22/18 06:20 Eos % (Auto) 5.2 % (1.5-5.0) H 09/22/18 06:20 Baso % (Auto) 0.5 % (0.0-3.0) 09/22/18 06:20 Gran # 1.73 (1.4-6.5) 09/22/18 06:20 Lymph # (Auto) 1.9 (1.2-3.4) 09/22/18 06:20 Johnson # (Auto) 0.4 (0.1-0.6) 09/22/18 06:20 Eos # (Auto) 0.2 (0.0-0.7) 09/22/18 06:20 Baso # (Auto) 0.02 K/mm3 (0.0-2.0) 09/22/18 06:20 Sodium 140 mmol/L (132-148) 09/22/18 06:20 Potassium 5.0 mmol/L (3.6-5.0) 09/22/18 06:20 Chloride 106 mmol/L (98-107) 09/22/18 06:20 Carbon Dioxide 28 mmol/L (21-33) 09/22/18 06:20 Anion Gap 12 (10-20) 09/22/18 06:20 BUN 13 mg/dL (7-21) 09/22/18 06:20 Creatinine 1.2 mg/dl (0.8-1.5) 09/22/18 06:20 Est GFR ( Amer) > 60 09/22/18 06:20 Est GFR (Non-Af Amer) > 60 09/22/18 06:20 Random Glucose 110 mg/dL (70-110) 09/22/18 06:20 Calcium 9.7 mg/dL (8.4-10.5) 09/22/18 06:20 Phosphorus 4.7 mg/dL (2.5-4.5) H 09/22/18 06:20 Magnesium 2.2 mg/dL (1.7-2.2) 09/22/18 06:20 Total Bilirubin 0.4 mg/dL (0.2-1.3) 09/22/18 06:20 AST 22 U/L (17-59) 09/22/18 06:20 ALT 21 U/L (7-56) 09/22/18 06:20 Alkaline Phosphatase 74 U/L (38-126) 09/22/18 06:20 Total Creatine Kinase 46 U/L (35-230) 09/21/18 19:48 Troponin I < 0.01 ng/mL 09/22/18 06:20 Total Protein 6.6 g/dL (5.8-8.3) 09/22/18 06:20 Albumin 3.7 g/dL (3.0-4.8) 09/22/18 06:20 Globulin 2.9 gm/dL 09/22/18 06:20 Albumin/Globulin Ratio 1.3 (1.1-1.8) 09/22/18 06:20 Triglycerides 200 mg/dL (35-160) H 09/22/18 06:20 Cholesterol 144 mg/dL (130-200) 09/22/18 06:20 LDL Cholesterol Direct 81 mg/dL (0-129) 09/22/18 06:20 HDL Cholesterol 44 mg/dL (29-60) 09/22/18 06:20 Attending/Attestation - Attestation I have personally seen and examined this patient.: Yes I have fully participated in the care of the patient.: Yes I have reviewed all pertinent clinical information, including history, physical exam and plan: Yes
[2018-09-22 14:36] VITALS: PULSE 96
--- NOTE | 2018-09-22 18:58 | CARD ---
APPROVED REPORT Date of service: 09/21/2018 EKG Measurement Heart [id number] <Conclusion> Normal sinus rhythm Normal ECG
--- NOTE | 2018-09-22 19:15 | CARD ---
APPROVED REPORT Date of service: 09/22/2018 EKG Measurement Heart [id number] <Conclusion> Normal sinus rhythm Normal ECG
== END 2018-09-22 15:37 | disposition home or self-care (01) ==
LOC: ED 19:23 → ERH 20:44 → 2RNO 09-22 00:27
PROVIDERS: ADMIT Hospitalist; ATTEND Hospitalist
DX: R07.89 Other chest pain (principal); N40.0 Benign prostatic hyperplasia without lower urinary tract symptoms; I10 Essential (primary) hypertension; E03.9 Hypothyroidism, unspecified; I47.1 Supraventricular tachycardia; Z87.891 Personal history of nicotine dependence
CPT/HCPCS: 36415; 71045; 80053; 80061; 82550; 83735; 84100; 84484; 85025; 93005; 96374; 96376; 99285; G0378; J1885